=== PATIENT | female | born 1955 | race Caucasian/White ===

== ENCOUNTER 2018-03-02 09:36 | Emergency (ER) | payer BC ==
--- OUTSIDE RECORDS SUMMARY | 2018-03-02 09:38 | XMS REPORT | Clinical Summary ---
:1955 Author Organization [facility] Address [address] [place] [address] Care Team Providers Name Role Phone Chris Aparicio MD Primary Care Provider Allergies No Known Allergies Current Medications Prescription Sig. Disp. Refills Start Date End Date Status traZODone (DESYREL) 150 MG Take 150 mg by Active tablet mouth nightly. venlafaxine XR Take 150 mg by Active (EFFEXOR-XR) 150 MG 24 hr mouth 2 (two) capsule times a day. mirtazapine (REMERON Take 30 mg by Active RONALD-TAB) 30 MG mouth nightly. disintegrating tablet clonAZEPAM (KlonoPIN) 1 MG Take 1 mg by mouth Active tablet 3 (three) times a day as needed for seizures. gabapentin (NEURONTIN) 600 Take 600 mg by Active MG tablet mouth 2 (two) times a day. eletriptan (RELPAX) 40 MG Take 40 mg by Active tablet mouth once as needed for migraine. May repeat in 2 hours if unresolved. Do not exceed 80 mg in 24 hours. Active Problems Not on file Social History Tobacco Use Types Packs/Day Years Used Date Current Every Day Smoker Cigarettes, Cigars 30 Smokeless Tobacco: Current User Alcohol Use Drinks/Week oz/Week Comments Yes less than 6 drinks per week Sex Assigned at Date Recorded Not on file Last Filed Vital Signs Not on file Plan of Treatment Health Maintenance Due Date Last Done Comments CERVICAL CANCER SCREENING 1978 BREAST CANCER SCREENING 09/04/2007 COLON CANCER SCREENING 09/04/2007 SHINGRIX VACCINE (#1) 09/04/2007 ZOSTER VACCINE 2017 INFLUENZA VACCINE 11/30/2017 Results Not on fileafter 03/01/2017 Insurance Payer Benefit Plan / Group Subscriber ID Type Phone Address BCBS BCBS CHOICE PPO/FEDERAL EMPL PPO xxxxxxxxxxxx PPO Home: [facility] [address] [phone] [place], [place] [id number]
[2018-03-02] MEDS ORDERED: NA CHLORIDE 0.9% 1,000 ML ONE (11:14)
[2018-03-02 11:15] LABS: Urine Bacteria LOADED /HPF (<20); Urine RBC <5 /HPF (NONE SEEN)
[2018-03-02 11:16] LABS: Urine Culture Reflex Order NOT NEEDED; Urine Mucus 3+ /HPF (NONE SEEN)
[2018-03-02 11:22] LABS: Urine Blood TRACE (NEG); Urine Glucose NEGATIVE (NEG); Urine Protein 2+ (NEG)
[2018-03-02 11:23] LABS: Absolute Lymphocytes (CBC) 2.7 K/uL (0.7-4.9); Absolute Monocytes 0.5 K/uL (0.1-1.3); Absolute Neutrophil 4.2 K/uL (1.8-8.0); Basophils % 0.5 % (0-1.3); Eosinophils % 0.7 % (0-4.4); Hematocrit 42.2 % (36.0-45.0); Lymphocytes % 35.4 % (15.3-44.8); MCH 34.3 pg (27.0-35.0); MCV 98.8 fL (80-100); MPV 8.5 fL (7.6-11.3); RBC Red Blood Cell Count 4.27 M/uL (3.86-4.86)
[2018-03-02] MEDS ORDERED: MORPHINE 4 MG/ML SYR ONE (11:23)
[2018-03-02] MEDS ORDERED: ONDANSETRON 4 MG/2 ML VIAL ONE (11:24)
[2018-03-02] MEDS ORDERED: CEFTRIAXONE/SWI 1gm 1 GM/10 ML SYR ONE (11:30)
[2018-03-02 11:43] LABS: Potassium 4.1 mmol/L (3.5-5.1)
--- NOTE | 2018-03-02 11:59 | RAD REPORT ---
EXAM DESCRIPTION: CT - Stone Protocol - 03/02/2018 11:30 am CLINICAL HISTORY: Flank pain. FLANK PAIN COMPARISON: MRI LUMBAR SPINE W O CON dated 01/26/2012; Spine Lumbar Wo Con dated 10/12/2016 TECHNIQUE: Axial images were obtained without oral or IV contrast. Lack of contrast limits solid org an and vascular assessment. The buudi-aa-ctef spans the entirety of the system partially obscuring uppermost abdomen and lung bases. Coronal reformatted images were obtained and reviewed. All CT scans are performed using dose optimization technique as appropriate and may include automated exposure control or mA/KV adjustment according to patient size. FINDINGS: The lower lung garcias are clear. Small hiatal hernia with 6 mm paraesophageal lymph node. Imaged portions of the liver and spleen show no suspicious findings on non-contrast imaging. The panc reas and adrenal glands are normal. No pathologic lymphadenopathy in the abdomen or pelvis. Punctate bilateral nephrolithiasis is seen without hydronephrosis. No bowel obstruction, free air, free fluid or abscess. Sigmoid diverticulosis is present without dive rticulitis. The appendix is not identified as a discrete structure, however, no secondary findings of appendicitis are identified. Mild compression deformity is seen affecting T12 vertebral body, likely chronic. IMPRESSION: Punctate bilateral nephrolithiasis without hydronephrosis. Sigmoid diverticulosis without diverticulitis. Small hiatal hernia with small paraesophageal lymph node.
--- NOTE | 2018-03-02 12:34 | EDPHYS ---
Physician Documentation [facility] Name: Sydni Chappell Age: 62 yrs Sex: Female : 1955 Arrival Date: 03/02/2018 Time: 09:41 Bed 24 Private MD: Chris Aparicio ED Physician Nicolas Ellsworth HPI: 03/02 12:30 This 62 yrs old Female presents to ER via Wheelchair with complaints of Back kb Pain, Urinary Problem. 12:30 The patient presents with flank pain, on the left, urinary symptoms, dysuria, kb frequency. Onset: The symptoms/episode began/occurred last night. Modifying factors: The symptoms are alleviated by nothing, the symptoms are aggravated by urinating. Associated signs and symptoms: Pertinent positives: dysuria, urinary frequency. Severity of symptoms: At their worst the symptoms were moderate, in the emergency department the symptoms are unchanged. The patient has experienced similar episodes in the past, several times. The patient has not recently seen a physician. Historical: - Allergies: 09:54 No Known Allergies; aa5 - PMHx: 09:54 Anxiety; Back pain; Depression; aa5 - PSHx: 09:54 STENTS SOMEWHERE IN URINARY TRACT; aa5 - Immunization history:: Adult Immunizations unknown. - Social history:: Smoking status: unknown. - Ebola Screening: : Patient negative for fever greater than or equal to 101.5 degrees Fahrenheit, and additional compatible Ebola Virus Disease symptoms Patient denies exposure to infectious person Patient denies travel to an Ebola-affected area in the 21 days before illness onset. ROS: 12:31 Constitutional: Negative for fever, chills, and weight loss, Cardiovascular: Negative kb for chest pain, palpitations, and edema, Respiratory: Negative for shortness of breath, cough, wheezing, and pleuritic chest pain, Abdomen/GI: Negative for abdominal pain, nausea, vomiting, diarrhea, and constipation, MS/Extremity: Negative for injury and deformity, Skin: Negative for injury, rash, and discoloration, Neuro: Negative for headache, weakness, numbness, tingling, and seizure. 12:31 : Positive for urinary symptoms, flank pain, urinary frequency, burning with urination. Exam: 12:32 Constitutional: This is a well developed, well nourished patient who is awake, alert, kb and in no acute distress. Head/Face: Normocephalic, atraumatic. Chest/axilla: Normal chest wall appearance and motion. Nontender with no deformity. No lesions are appreciated. Cardiovascular: Regular rate and rhythm with a normal S1 and S2. No gallops, murmurs, or rubs. Normal PMI, no JVD. No pulse deficits. Respiratory: Lungs have equal breath sounds bilaterally, clear to auscultation and percussion. No rales, rhonchi or wheezes noted. No increased work of breathing, no retractions or nasal flaring. Abdomen/GI: Soft, non-tender, with normal bowel sounds. No distension or tympany. No guarding or rebound. No evidence of tenderness throughout. Skin: Warm, dry with normal turgor. Normal color with no rashes, no lesions, and no evidence of cellulitis. MS/ Extremity: Pulses equal, no cyanosis. Neurovascular intact. Full, normal range of motion. Neuro: Awake and alert, GCS 15, oriented to person, place, time, and situation. Cranial nerves II-XII grossly intact. Motor strength 5/5 in all extremities. Sensory grossly intact. Cerebellar exam normal. Normal gait. 12:32 Back: CVA tenderness, that is mild, that is moderate, is noted on the left. Vital Signs: 09:56 BP 111 / 62; Pulse 64; Resp 18 S; Temp 98.0(O); Pulse Ox 99% on R/A; Weight 72.57 kg aa5 (R); Height 5 ft. 8 in. (172.72 cm) (R); Pain 8/10; 12:20 BP 129 / 76; Pulse 51; Resp 16; Pulse Ox 100% ; Pain 6/10; iw 13:30 BP 104 / 73; Pulse 52; Pulse Ox 100% on R/A; rv 09:56 Body Mass Index 24.33 (72.57 kg, 172.72 cm) aa5 MDM: 10:46 Patient medically screened. kb 12:31 Data reviewed: vital signs, nurses notes. Data interpreted: Pulse oximetry: on room air kb is 100 %. Interpretation: normal. Counseling: I had a detailed discussion with the patient and/or guardian regarding: the historical points, exam findings, and any diagnostic results supporting the discharge/admit diagnosis, lab results, radiology results, the need for outpatient follow up, a family practitioner, to return to the emergency department if symptoms worsen or persist or if there are any questions or concerns that arise at home. 03/02 11:01 Order name: Urine Microscopic Only; Complete Time: 11:18 iw 03/02 11:01 Order name: Urine Culture iw 03/02 11:01 Order name: CBC with Diff; Complete Time: 11:31 kb 03/02 11: Order name: Basic Metabolic Panel; Complete Time: 11:49 kb 03/02 11:15 Order name: Urine Dipstick--Ancillary (enter results); Complete Time: 11:24 eb 03/02 11:01 Order name: Urine Dipstick-Ancillary (obtain specimen); Complete Time: 11:18 kb 03/02 11: Order name: CT Stone Protocol; Complete Time: 11:59 kb Administered Medications: 11:30 Drug: morphine 4 mg Route: IVP; Site: right antecubital; iw 13:29 Follow up: Response: No adverse reaction rv 11:30 Drug: NS 0.9% 1000 ml Route: IV; Rate: 1000 ml; Site: right antecubital; iw 13:29 Follow up: IV Status: Completed infusion rv 11:35 Drug: Zofran 4 mg Route: IVP; Site: right antecubital; iw 13:29 Follow up: Response: No adverse reaction rv 11:47 Drug: Rocephin 1 grams {Note: administered over 5 min.} Route: IV; Rate: calculated iw rate; Site: right antecubital; 11:55 Follow up: IV Status: Completed infusion iw 13:29 Follow up: Response: No adverse reaction; Blood sugar is elevated rv Disposition: 18:46 Co-signature as Attending Physician, Nicolas Ellsworth MD. rn Disposition: 03/02/18 12:33 Discharged to Home. Impression: Urinary tract infection, site not specified. - Condition is Stable. - Discharge Instructions: Urinary Tract Infection, Adult, [id number]-[id number]. - Prescriptions for Augmentin 875- 125 mg Oral Tablet - take 1 tablet by ORAL route every 12 hours for 7 days; 14 tablet. Pyridium 200 mg Oral Tablet - take 1 tablet by ORAL route every 8 hours for 3 days; 9 tablet. Diclofenac Sodium 75 mg Oral Tablet, Delayed Release (E.C.) - take 1 tablet by ORAL route 2 times per day As needed; 30 tablet. - Medication Reconciliation Form, Thank You Letter, Antibiotic Education, Prescription Opioid Use form. - Follow up: Emergency Department; When: As needed; Reason: Worsening of condition. Follow up: Private Physician; When: 2 - 3 days; Reason: Recheck today's complaints, Continuance of care, Re-evaluation by your physician. Signatures: Dispatcher [employer] [facility] Mikayla Zurita, FLAT LOCKER-C FLAT LOCKER-Ckb Savannah Everett, RN RN Nicolas Luu MD MD rn Calderon, Audri, RN RN aa5 Garth Garcia RN RN rv Corrections: (The following items were deleted from the chart) 11:02 11:01 UA MICROSCOPIC+U.LAB.BRZ ordered. [facility] 13:32 12:33 03/02/2018 12:33 Discharged to Home. Impression: Urinary tract infection, site rv not specified. Condition is Stable. Forms are Medication Reconciliation Form, Thank You Letter, Antibiotic Education, Prescription Opioid Use. Follow up: Emergency Department; When: As needed; Reason: Worsening of condition. Follow up: Private Physician; When: 2 - 3 days; Reason: Recheck today's complaints, Continuance of care, Re-evaluation by your physician. kb
--- NOTE | 2018-03-02 12:34 | ER ---
Nurse's Notes [facility] Name: Sydni Verma Chappell Age: 62 yrs Sex: Female : 1955 Arrival Date: 03/02/2018 Time: 09:41 Bed 24 Private MD: Chris Aparicio Diagnosis: Urinary tract infection, site not specified Presentation: 03/02 09:54 Presenting complaint: Patient states: "I hurt everywhere and I've been under a lot of aa5 stress". Lower back pain x 1 week and and vomiting and diarrhea. Transition of care: patient was not received from another setting of care. Onset of symptoms was January 2018. Risk Assessment: Do you want to hurt yourself or someone else? Patient reports no desire to harm self or others. Initial Sepsis Screen: Does the patient meet any 2 criteria? No. Patient's initial sepsis screen is negative. Does the patient have a suspected source of infection? No. Patient's initial sepsis screen is negative. Care prior to arrival: None. 09:54 Method Of Arrival: Wheelchair aa5 09:54 Acuity: BRODY 3 aa5 Historical: - Allergies: 09:54 No Known Allergies; aa5 - PMHx: 09:54 Anxiety; Back pain; Depression; aa5 - PSHx: 09:54 STENTS SOMEWHERE IN URINARY TRACT; aa5 - Immunization history:: Adult Immunizations unknown. - Social history:: Smoking status: unknown. - Ebola Screening: : Patient negative for fever greater than or equal to 101.5 degrees Fahrenheit, and additional compatible Ebola Virus Disease symptoms Patient denies exposure to infectious person Patient denies travel to an Ebola-affected area in the 21 days before illness onset. Screenin:30 Abuse screen: Denies threats or abuse. Denies injuries from another. Nutritional rv screening: No deficits noted. Tuberculosis screening: No symptoms or risk factors identified. Fall Risk None identified. Assessment: 11:15 General: Appears uncomfortable, Behavior is calm, cooperative. Pain: Complains of pain iw in left low back and right low back. Neuro: Level of Consciousness is awake, alert, obeys commands, Oriented to person, place, time, situation, Moves all extremities. Full function. Cardiovascular: Patient's skin is warm and dry. Respiratory: Respiratory effort is even, unlabored, Respiratory pattern is regular, symmetrical. : Reports burning with urination, pain in lower back. Derm: Skin is intact, is healthy with good turgor. 12:17 Reassessment: Patient appears in no apparent distress at this time. Patient and/or iw family updated on plan of care and expected duration. Pain level reassessed. Patient is alert, oriented x 3, equal unlabored respirations, skin warm/dry/pink. Vital Signs: 09:56 BP 111 / 62; Pulse 64; Resp 18 S; Temp 98.0(O); Pulse Ox 99% on R/A; Weight 72.57 kg aa5 (R); Height 5 ft. 8 in. (172.72 cm) (R); Pain 8/10; 12:20 BP 129 / 76; Pulse 51; Resp 16; Pulse Ox 100% ; Pain 6/10; iw 13:30 BP 104 / 73; Pulse 52; Pulse Ox 100% on R/A; rv 09:56 Body Mass Index 24.33 (72.57 kg, 172.72 cm) aa5 ED Course: 09:41 Patient arrived in ED. mr 09:41 Chris Aparicio MD is Private Physician. mr 09:56 Triage completed. aa5 09:56 Arm band placed on. aa5 10:45 Mik[facility] Zurita [facility]C [facility] kb 10:45 Nicolas Ellsworth MD is Attending Physician. kb 11:00 Savannah Everett, MICHEL is Primary Nurse. iw 11:16 Initial lab(s) drawn, by il, sent to lab. Urine collected: clean catch specimen, ashkan 5 colored. Inserted saline lock: 20 gauge in right antecubital area, using aseptic technique. Blood collected. 11:17 Patient has correct armband on for positive identification. Bed in low position. [facility] light in reach. Side rails up X 1. Warm blanket given. Pulse ox on. NIBP on. 11:18 Urine Dipstick--Ancillary (enter results) [facility] 11:18 Basic Metabolic Panel Sent. 5 11:18 CBC with Diff [facility] 11:18 Urine Culture Sent. 5 11:23 CT completed. Patient tolerated procedure well. Patient moved to CT via wheelchair. sj Patient moved back from CT. 11:31 CT Stone Protocol In Process Unspecified. EDMS 13:31 No provider procedures requiring assistance completed. IV discontinued, bleeding rv controlled, No redness/swelling at site. Pressure dressing applied. Administered Medications: 11:30 Drug: morphine 4 mg Route: IVP; Site: right antecubital; iw 13:29 Follow up: Response: No adverse reaction rv 11:30 Drug: NS 0.9% 1000 ml Route: IV; Rate: 1000 ml; Site: right antecubital; iw 13:29 Follow up: IV Status: Completed infusion rv 11:35 Drug: Zofran 4 mg Route: IVP; Site: right antecubital; iw 13:29 Follow up: Response: No adverse reaction rv 11:47 Drug: Rocephin 1 grams {Note: administered over 5 min.} Route: IV; Rate: calculated iw rate; Site: right antecubital; 11:55 Follow up: IV Status: Completed infusion iw 13:29 Follow up: Response: No adverse reaction; Blood sugar is elevated rv Outcome: 12:33 Discharge ordered by . kb 13:32 Discharged to home ambulatory. rv 13:32 Condition: improved 13:32 Discharge instructions given to patient, Instructed on discharge instructions, follow up and referral plans. medication usage, Demonstrated understanding of instructions, follow-up care, medications, Prescriptions given X 3. 13:32 Patient left the ED. rv Signatures: Dispatcher [employer] Mikayla Haskins, MRI SPECIAL PROCEDURES TECHNOLOGIST-C MRI SPECIAL PROCEDURES TECHNOLOGIST-Vilma Disla mr Beasley, Savannah Soto RN RN iw Calderon, Audri, RN RN aa5 Martinez, Maria Garth Elder RN RN rv
== END 2018-03-02 13:32 | disposition home or self-care (01) ==
LOC: ER 09:36
DX: N39.0 Urinary tract infection, site not specified (principal)
CPT/HCPCS: 36415; 74176; 76377; 80048; 81003; 81015; 85025; 87086; 87088; 96361; 96374; 96375; 99284; J0696; J2405; J7030

== ENCOUNTER 2021-04-12 08:02 | Emergency (ER) | payer BC ==
--- OUTSIDE RECORDS SUMMARY | 2021-04-12 08:06 | XMS REPORT | Continuity of Care Document ---
:1955 Author Organization [facility] t Address [address] [place] [address] Care Team Providers Name Role Phone KING KAUFFMAN Primary Care Physician Unavailable KING KAUFFMAN Attending Clinician Unavailable King Kauffman MD Attending Clinician Mehran HILL Attending Clinician Unavailable Andrew SHOEMAKER Attending Clinician ANDREW Attending Clinician Unavailable Doctor Unassigned, Name Attending Clinician Unavailable Room, Uro Procedure Attending Clinician Unavailable Tony PAC, Sole Attending Clinician King PAC, S Attending Clinician ANENE Attending Clinician Unavailable Silvia MURGUIA Attending Clinician Unavailable Silvia Murguia MD Attending Clinician ANDREW Admitting Clinician Unavailable Andrew SHOEMAKER Admitting Clinician Silvia MURGUIA Admitting Clinician Unavailable Payers Payer Name Policy Type Policy Number Effective Date Expiration Date S [facility] - [id number] 2017 2020 00:00:0 0 OUT OF STATE 00:00:00 Problems Condition Condition Condition Status Onset Resolution Last Treating Co mments Source Name Details Category Date Date Treatment Clinician Date Ureteral Ureteral Disease Active Unive rs stone stone 10-02 ity of 00:00: [address] Branch Urinary Urinary Disease Active Overview: Univ ers tract tract 10-01 Added ity of infection infection 00:00: automatic [place] without without 00 ally from Medic al hematuria, hematuria, request B [place] site site for unspecifie unspecifie surgery d d [id number] Bronchitis Bronchitis Disease Active 2017-1 U nivers 2-17 ity of 00:00: [place] 00 [facility] Depression Depression Disease Active 2014-05 U nivers 0-27 ity of 00:00: [place] 00 Medical Branch 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 U nivers e migraine e migraine it y of with aura with aura 00:[place] without without 00 Medical status status Branch migrainosu migrainosu s s Irritable Irritable Disease Active 2014-05 Uni vers bowel bowel 0 ity of syndrome syndrome 00:00: [place] with with 00 Medical diarrhea diarrhea Branch Allergies, Adverse Reactions, Alerts Allergy Allergy Status Severity Reaction(s) Onset Inactive Treating Comm ents Source Name Type Date Date Clinician CLINDAMY DRUG Active Swelling 2019-0 Univer s RUBY INGREDI 09-30 ity of 00:00: [place] 00 [facility] Clindamy Propensi Active Swelling 2019- Univ ers ruby ty to 09-30 ity of adverse 00:00: [place] reaction 00 Medical s Branch NO KNOWN Drug Active Univers ALLERGIE Class ity of S [facility] Social History Social Habit Start Date Stop Date Quantity Comments Source History of Cigarette Smoker Universi ty of tobacco use [facility] Sex Assigned At Universit y of [facility] Exposure to Not sure [facility] SARS-CoV-2 [facility] [place] (event) [place] Tobacco use and 2019-11-22 2019-11-22 Never used Universit y of exposure 00:00:00 00:00:00 [facility] Cigarettes smoked 2019-11-22 2019-11-22 Univers ity of current (pack per 00:00:00 00:00:00 [facility] ) - Reported Branch Cigarette 2019-11-22 2019-11-22 University of pack-years 00:00:00 00:00:00 [facility] Alcohol intake 2019-11-22 2019-11-22 Current drinker of Un iversity of 00:00:00 00:00:00 alcohol (finding) [facility] Tobacco Comment 2017-01-11 2017-01-11 0.5 pack weekly Univ ersity of 00:00:00 00:00:00 [facility] Alcohol Comment 2015-02-25 2015-02-25 occationally Univers ity of 00:00:00 00:00:00 [facility] Smoking Status Start Date Stop Date Source Current every day smoker 2019-11-22 00:00:00 [facility] Medical [place] Medications Ordered Filled Start Stop Current Ordering Indication Dosage Frequency Signature Comments Components Source Medication Medication Date Date Medication? Clinician (SIG) Name Name willianiptfelipe 2019-05 2020- No [id number] 40mg Take 1 Univers 40 mg 1-03-22 tablet by ity of tablet 00:00: 05:59 mouth [place] 00 :00 now for 1 Medical dose. May Branch repeat in 2 hours if necessary tamsulosin 2019-0 Yes [id number] .4mg Take 1 U nivers 0.4 mg 24 6-04 capsule by ity of hr capsule 00:00: mouth [place] 00 daily. Medical Branch tamsulosin 2019-0 Yes [id number] .4mg Take 1 U nivers 0.4 mg 24 6-04 capsule by ity of hr capsule 00:00: mouth [place] 00 daily. Medical Branch tamsulosin 2019-0 Yes [id number] .4mg Take 1 U nivers 0.4 mg 24 6-04 capsule by ity of hr capsule 00:00: mouth [place] 00 daily. Medical Branch tamsulosin 2019-0 Yes [id number] .4mg Take 1 U nivers 0.4 mg 24 6-04 capsule by ity of hr capsule 00:00: mouth [place] 00 daily. Medical Branch tamsulosin 2019-0 Yes [id number] .4mg Take 1 U nivers 0.4 mg 24 6-04 capsule by ity of hr capsule 00:00: mouth [place] 00 daily. Medical Branch tamsulosin 2019-0 Yes [id number] .4mg Take 1 U nivers 0.4 mg 24 6-04 capsule by ity of hr capsule 00:00: mouth [place] 00 daily. Medical Branch tamsulosin 2019-0 Yes [id number] .4mg Take 1 U nivers 0.4 mg 24 6-04 capsule by ity of hr capsule 00:00: mouth [place] 00 daily. Medical Branch tamsulosin 2020-0 Yes [id number] .4mg Take 1 U nivers 0.4 mg 24 6-04 capsule by ity of hr capsule 00:00: mouth [place] 00 daily. Medical Branch tamsulosin 2019-0 Yes [id number] .4mg Take 1 U nivers 0.4 mg 24 6-04 capsule by ity of hr capsule 00:00: mouth [place] 00 daily. Medical Branch venlafaxine 2020-0 Yes 150mg Take 150 U nivers XR (EFFEXOR 6-03 mg by ity of XR) 150 mg 20:29: mouth 3 [place] 24 [place] 39 (three) Medical capsule times Branch daily. venlafaxine 2020-0 Yes 150mg Take 150 U nivers XR (EFFEXOR 6-03 mg by ity of XR) 150 mg 20:29: mouth 3 [place] 24 [place] 39 (three) Medical capsule times Branch daily. venlafaxine 2020-0 Yes 150mg Take 150 U nivers XR (EFFEXOR 6-03 mg by ity of XR) 150 mg 20:29: mouth 3 [place] 24 [place] 39 (three) Medical capsule times Branch daily. venlafaxine 2020-0 Yes 150mg Take 150 U nivers XR (EFFEXOR 6-03 mg by ity of XR) 150 mg 20:29: mouth 3 [place] 24 [place] 39 (three) Medical capsule times Branch daily. venlafaxine 2020-0 Yes 150mg Take 150 U nivers XR (EFFEXOR 6-03 mg by ity of XR) 150 mg 20:29: mouth 3 [place] 24 [place] 39 (three) Medical capsule times Branch daily. venlafaxine 2020-0 Yes 150mg Take 150 U nivers XR (EFFEXOR 6-03 mg by ity of XR) 150 mg 20:29: mouth 3 [place] 24 [place] 39 (three) Medical capsule times Branch daily. venlafaxine 2020-0 Yes 150mg Take 150 U nivers XR (EFFEXOR 6-03 mg by ity of XR) 150 mg 20:29: mouth 3 [place] 24 [place] 39 (three) Medical capsule times Branch daily. venlafaxine 2020-0 Yes 150mg Take 150 U nivers XR (EFFEXOR 6-03 mg by ity of XR) 150 mg 20:29: mouth 3 [place] 24 [place] 39 (three) Medical capsule times Branch daily. venlafaxine 2020-0 Yes 150mg Take 150 U nivers XR (EFFEXOR 6-03 mg by ity of XR) 150 mg 20:29: mouth 3 [place] 24 [place] 39 (three) Medical capsule times Branch daily. lactated 2020-0 Yes 1000mL at 75 Univer s ringers IV 6-03 mL/hr, ity of infusion 17:45: 1,000 mL, [place] 1,000 mL 00 IV Medical Infusion, Branch CONTINUOUS , Starting Tue10/03/19 at 1245, Until Discontinu ed, Routine, PACU FENTanyl PF 2019-0 2020- No 25ug 25 mcg, Un rickey (SUBLIMAZE 10-02 Slow IV ity o f (PF)) 17:44: 18:15 Push, [place] injection 50 :00 Q5MIN PRN, Medi [place] 25 mcg 4 doses, Branch Starting Tue10/03/19 at 1244, Until Discontinu ed, Routine, Pain (scale 4-6), PACU acetaminoph 2019-0 2020- No 1{tbl} Take 1 U nivers en-codeine 10-02 tablet by ity of (TYLENOL-CO 17:31: 00:00 mouth [place] DEINE #3) 33 :00 every 4 Medical 300-30 mg (four) Branch tablet hours as needed. tamsulosin 2019-0 Yes .4mg 0.4 mg, Univ ers (FLOMAX) 10-02 Oral, ity of capsule 0.4 14:00: DAILY, [place] mg 00 First dose Medical on Tue Branch 10/03/19 at 0900, Until Discontinu ed, Routine gabapentin 2020-0 Yes 300mg 300 mg, Uni vers (NEURONTIN) 10-02 Oral, TID, it y of capsule 300 13:00: First dose [place] mg 00 on Tue Medical 10/03/19 at Branch 0800, Until Discontinu ed, Routine acetaminoph 2020-0 Yes 650mg 650 mg, Un rickey en 10-02 Oral, Q6H, ity of (TYLENOL) 11:00: First dose [place] tablet 650 00 on Tue Medical mg 10/03/19 at Branch 0600, Until Discontinu ed, Routine NaCl 0.9% 2020-0 Yes IV Univers (NS) IV 10-02 Infusion, ity of infusion 06:15: at 100 [place] 00 mL/hr, Medical CONTINUOUS Branch , Starting Tue10/03/19 at 0115, Until Discontinu ed, Routine ketorolac 2020-0 Yes 30mg 30 mg, Univer s (TORADOL) 10-02 Slow IV ity of injection 06:12: Push, [place] 30 mg 24 Q8HPRN, 3 Medical doses, Branch Starting Tue10/03/19 at 0112, Until Discontinu ed, Routine, Pain (scale 7-10)
F aculty member approving Restricted medication : DIANNA MORALES cefTRIAXone 2019-2019- No 1000mg 1,000 mg, Univers (ROCEPHIN) 10-02 IV ity of 1,000 mg in 04:30: 03:58 Piggyback, [place] NaCl 0.9% 00 :00 ONCE, 1 Medical (NS) 50 mL dose, Tue Bran ch MINI-BAG 10/02/19 at 2330, 50 mL
Reas on for Anti-Infec tive: Documented Infection< br>Documen alysha Infection Site: Urine
D uration of Therapy: Other (see Comments) ketorolac 2019- No 30mg 30 mg, Unive rs (TORADOL) 10-02 Slow IV ity of injection 04:30: 03:28 Push, [place] 30 mg 00 :00 ONCE, 1 Medical dose, e Branch 10/02/19 at 2330, IAM
Fa culty member approving Restricted medication : GIANNA KING morpHINE 2019- No 4mg 4 mg, Slow Un rickey injection 4 10-02 IV Push, ity of mg 04:15: 03:06 ONCE, 1 [place] 00 :00 dose, Tue Medical 10/02/19 at Branch 2315, STAT NaCl 0.9% 2020- No 1000mL at 999 Uni vers (NS) bolus 10-02 mL/hr, ity of infusion 01:30: 01:33 1,000 mL, Jose Angel as 1,000 mL 00 :00 IV Medical Infusion, Branch ONCE, 1 dose, 10/02/19 at 2030, STAT iohexol 2019-0 2020- No 120mL 120 mL, Unive rs (OMNIPAQUE 10-02 Intravenou it y of 350 01:25: 01:25 s, ONCE, 1 [place] BULK-150 00 :00 dose, Tue Medica l mL) 10/02/19 at Branch injection 2045, 120 mL Routine gabapentin 2019- Yes [id number] 300mg Take 1 Univers 300 mg 10-02 capsule by ity of capsule 00:00: mouth 3 [place] 00 (three) Medical times Branch daily. ketorolac 2020-0 Yes [id number] 10mg Take 1 Un rickey 10 mg 6-03 tablet by ity of tablet 00:00: mouth every 8 Medical (eight) Branch hours as needed for Pain (scale 7-10). gabapentin 2020-0 Yes [id number] 300mg Take 1 Univers 300 mg 6-03 capsule by ity of capsule 00:00: mouth (three) Medical times Branch daily. ketorolac 2020-0 Yes [id number] 10mg Take 1 Un rickey 10 mg 6-03 tablet by ity of tablet 00:00: mouth 00 every 8 Medical (eight) Branch hours as needed for Pain (scale 7-10). gabapentin 2020-0 Yes [id number] 300mg Take 1 Univers 300 mg 6-03 capsule by ity of capsule 00:00: mouth (three) Medical times Branch daily. ketorolac 2020-0 Yes [id number] 10mg Take 1 Un rickey 10 mg 6-03 tablet by ity of tablet 00:00: mouth every 8 Medical (eight) Branch hours as needed for Pain (scale 7-10). gabapentin 2020-0 Yes [id number] 300mg Take 1 Univers 300 mg 6-03 capsule by ity of capsule 00:00: mouth (three) Medical times Branch daily. ketorolac 2020-0 Yes [id number] 10mg Take 1 Un rickey 10 mg 6-03 tablet by ity of tablet 00:00: mouth every 8 Medical (eight) Branch hours as needed for Pain (scale 7-10). gabapentin 2020-0 Yes [id number] 300mg Take 1 Univers 300 mg 6-03 capsule by ity of capsule 00:00: mouth (three) Medical times Branch daily. ketorolac 2020-0 Yes [id number] 10mg Take 1 Un rickey 10 mg 6-03 tablet by ity of tablet 00:00: mouth every 8 Medical (eight) Branch hours as needed for Pain (scale 7-10). gabapentin 2020-0 Yes [id number] 300mg Take 1 Univers 300 mg 6-03 capsule by ity of capsule 00:00: mouth (three) Medical times Branch daily. ketorolac 2020-0 Yes [id number] 10mg Take 1 Un rickey 10 mg 6-03 tablet by ity of tablet 00:00: mouth [place] 00 every 8 Medical (eight) Branch hours as needed for Pain (scale 7-10). gabapentin 2020-0 Yes [id number] 300mg Take 1 Univers 300 mg 6-03 capsule by ity of capsule 00:00: mouth 3 [place] 00 (three) Medical times Branch daily. ketorolac 2020-0 Yes [id number] 10mg Take 1 Un rickey 10 mg 6-03 tablet by ity of tablet 00:00: mouth [place] 00 every 8 Medical (eight) Branch hours as needed for Pain (scale 7-10). gabapentin 2020-0 Yes [id number] 300mg Take 1 Univers 300 mg 6-03 capsule by ity of capsule 00:00: mouth 3 [place] 00 (three) Medical times Branch daily. ketorolac 2020-0 Yes [id number] 10mg Take 1 Un rickey 10 mg 6-03 tablet by ity of tablet 00:00: mouth [place] 00 every 8 Medical (eight) Branch hours as needed for Pain (scale 7-10). gabapentin 2020-0 Yes [id number] 300mg Take 1 Univers 300 mg 6-03 capsule by ity of capsule 00:00: mouth 3 [place] 00 (three) Medical times Branch daily. ketorolac 2020-0 Yes [id number] 10mg Take 1 Un rickey 10 mg 6-03 tablet by ity of tablet 00:00: mouth [place] 00 every 8 Medical (eight) Branch hours as needed for Pain (scale 7-10). acetaminoph 2020-0 2021- No [id number] 650mg Take 2 Univers en 325 mg 6-03 06-04 tablets by ity of tablet 00:00: 04:59 mouth [place] 00 :00 every 6 Medical (six) Branch hours. acetaminoph 2020-0 2021- No [id number] 650mg Take 2 Univers en 325 mg 6-03 06-04 tablets by ity of tablet 00:00: 04:59 mouth [place] 00 :00 every 6 Medical (six) Branch hours. acetaminoph 2020-0 2021- No [id number] 650mg Take 2 Univers en 325 mg 6-03 06-04 tablets by ity of tablet 00:00: 04:59 mouth [place] 00 :00 every 6 Medical (six) Branch hours. acetaminoph 2020-0 2021- No [id number] 650mg Take 2 Univers en 325 mg 6-03 06-04 tablets by ity of tablet 00:00: 04:59 mouth [place] 00 :00 every 6 Medical (six) Branch hours. acetaminoph 2020- No [id number] 650mg Take 2 Univers en 325 mg 6-03 06-04 tablets by ity of tablet 00:00: 04:59 mouth [place] 00 :00 every 6 Medical (six) Branch hours. acetaminoph 2020- No [id number] 650mg Take 2 Univers en 325 mg 6-03 06-04 tablets by ity of tablet 00:00: 04:59 mouth [place] 00 :00 every 6 Medical (six) Branch hours. acetaminoph 2020- No [id number] 650mg Take 2 Univers en 325 mg 6-03 06-04 tablets by ity of tablet 00:00: 04:59 mouth [place] 00 :00 every 6 Medical (six) Branch hours. acetaminoph 2020- No [id number] 650mg Take 2 Univers en 325 mg 6-03 06-04 tablets by ity of tablet 00:00: 04:59 mouth [place] 00 :00 every 6 Medical (six) Branch hours. acetaminoph 2020- No [id number] 650mg Take 2 Univers en 325 mg 6-03 06-04 tablets by ity of tablet 00:00: 04:59 mouth [place] 00 :00 every 6 Medical (six) Branch hours. ondansetron 2019- No 4mg 4 mg, Slow Univers (ZOFRAN 10-01 IV Push, ity of (PF)) 23:00: 22:05 ONCE, 1 [place] injection 4 00 :00 dose, Tue Med ical mg 20 at Branch 1800, IAM proMETHazin 2020-0 Yes [id number] 25mg Insert 1 Univers e - Suppositor ity of (PHENERGAN) 00:00: y into [place] 25 mg 00 rectum Medical suppository every 6 Branc h (six) hours as needed for Nausea and Vomiting (N/V) or N/V unresponsi ve to Ondansetro n. proMETHazin 2020-0 Yes [id number] 25mg Insert 1 Univers e -02 Suppositor ity of (PHENERGAN) 00:00: y into [place] 25 mg 00 rectum Medical suppository every 6 Branc h (six) hours as needed for Nausea and Vomiting (N/V) or N/V unresponsi ve to Ondansetro n. proMETHazin 2020-0 Yes [id number] 25mg Insert 1 Univers e 6-02 Suppositor ity of (PHENERGAN) 00:00: y into [place] 25 mg 00 rectum Medical suppository every 6 Branc h (six) hours as needed for Nausea and Vomiting (N/V) or N/V unresponsi ve to Ondansetro n. proMETHazin 2020-0 Yes [id number] 25mg Insert 1 Univers e 6-02 Suppositor ity of (PHENERGAN) 00:00: y into [place] 25 mg 00 rectum Medical suppository every 6 Branc h (six) hours as needed for Nausea and Vomiting (N/V) or N/V unresponsi ve to Ondansetro n. proMETHazin 2020-0 Yes [id number] 25mg Insert 1 Univers e 6-02 Suppositor ity of (PHENERGAN) 00:00: y into [place] 25 mg 00 rectum Medical suppository every 6 Branc h (six) hours as needed for Nausea and Vomiting (N/V) or N/V unresponsi ve to Ondansetro n. proMETHazin 2020-0 Yes [id number] 25mg Insert 1 Univers e 6-02 Suppositor ity of (PHENERGAN) 00:00: y into [place] 25 mg 00 rectum Medical suppository every 6 Branc h (six) hours as needed for Nausea and Vomiting (N/V) or N/V unresponsi ve to Ondansetro n. proMETHazin 2020-0 Yes [id number] 25mg Insert 1 Univers e 6-02 Suppositor ity of (PHENERGAN) 00:00: y into [place] 25 mg 00 rectum Medical suppository every 6 Branc h (six) hours as needed for Nausea and Vomiting (N/V) or N/V unresponsi ve to Ondansetro n. proMETHazin 2020-0 Yes [id number] 25mg Insert 1 Univers e 6-02 Suppositor ity of (PHENERGAN) 00:00: y into [place] 25 mg 00 rectum Medical suppository every 6 Branc h (six) hours as needed for Nausea and Vomiting (N/V) or N/V unresponsi ve to Ondansetro n. proMETHazin 2020-0 Yes [id number] 25mg Insert 1 Univers e 6-02 Suppositor ity of (PHENERGAN) 00:00: y into [place] 25 mg 00 rectum Medical suppository every 6 Branc h (six) hours as needed for Nausea and Vomiting (N/V) or N/V unresponsi ve to Ondansetro n. ciprofloxac 2019-0 2020- No [id number] 500mg Take 1 Univers in HCl 500 10-01 06-03 tablet by ity of mg tablet 00:00: 00:00 mouth [place] 00 :00 every 12 Medical (twelve) Branch hours for 5 days. ondansetron 2020-0 Yes [id number] 8mg Take 1 Univers (ZOFRAN 6-01 tablet by ity of ODT) 8 mg 00:00: mouth [place] disintegrat 00 every 8 Medic al ing tablet (eight) Branch hours as needed for Nausea and Vomiting (N/V). ondansetron 2020-0 Yes [id number] 8mg Take 1 Univers (ZOFRAN 6-01 tablet by ity of ODT) 8 mg 00:00: mouth [place] disintegrat 00 every 8 Medic al ing tablet (eight) Branch hours as needed for Nausea and Vomiting (N/V). ondansetron 2020-0 Yes [id number] 8mg Take 1 Univers (ZOFRAN 6-01 tablet by ity of ODT) 8 mg 00:00: mouth [place] disintegrat 00 every 8 Medic al ing tablet (eight) Branch hours as needed for Nausea and Vomiting (N/V). ondansetron 2020-0 Yes [id number] 8mg Take 1 Univers (ZOFRAN 6-01 tablet by ity of ODT) 8 mg 00:00: mouth [place] disintegrat 00 every 8 Medic al ing tablet (eight) Branch hours as needed for Nausea and Vomiting (N/V). ondansetron 2020-0 Yes [id number] 8mg Take 1 Univers (ZOFRAN 6-01 tablet by ity of ODT) 8 mg 00:00: mouth [place] disintegrat 00 every 8 Medic al ing tablet (eight) Branch hours as needed for Nausea and Vomiting (N/V). ondansetron 2020-0 Yes [id number] 8mg Take 1 Univers (ZOFRAN 6-01 tablet by ity of ODT) 8 mg 00:00: mouth [place] disintegrat 00 every 8 Medic al ing tablet (eight) Branch hours as needed for Nausea and Vomiting (N/V). ondansetron 2020-0 Yes [id number] 8mg Take 1 Univers (ZOFRAN 6-01 tablet by ity of ODT) 8 mg 00:00: mouth [place] disintegrat 00 every 8 Medic al ing tablet (eight) Branch hours as needed for Nausea and Vomiting (N/V). ondansetron 2020-0 Yes [id number] 8mg Take 1 Univers (ZOFRAN 6-01 tablet by ity of ODT) 8 mg 00:00: mouth [place] disintegrat 00 every 8 Medic al ing tablet (eight) Branch hours as needed for Nausea and Vomiting (N/V). ondansetron 2020-0 Yes [id number] 8mg Take 1 Univers (ZOFRAN 6-01 tablet by ity of ODT) 8 mg 00:00: mouth [place] disintegrat 00 every 8 Medic al ing tablet (eight) Branch hours as needed for Nausea and Vomiting (N/V). ketorolac 2019-0 2019- No 30mg 30 mg, Unive rs (TORADOL) 07-26 Slow IV ity of injection 07:15: 06:13 Push, [place] 30 mg 00 :00 ONCE, 1 Medical dose, Fri Branch 07/27/19 at 0215, Routine
membership manager approving Restricted medication : JAMIR MURGUIA HYDROcodone 2019-2019- No 1{tbl} 1 tablet, Univers -acetaminop 07-26 Oral, ONCE i ty of hen (NORCO) 07:15: 06:12 NOW, 1 [place] Angel as 10-325 mg 00 :00 dose, Fri Medic al tablet 1 07/27/19 at [facility] h tablet 0215, Routine iohexol 2019-0 2020- No 120mL 120 mL, Unive rs (OMNIPAQUE 07-26 Intravenou it y of 350 05:30: 05:11 s, ONCE, 1 [place] BULK-150 00 :00 dose, Fri Medica l mL) 07/27/19 at Branch injection 0030, 120 mL Routine FENTanyl PF 2020-0 2020- No 25ug 25 mcg, Un rickey (SUBLIMAZE 3-27 03-27 Slow IV ity o f (PF)) 04:15: 03:28 Push, [place] injection 00 :00 ONCE, 1 Medical 25 mcg dose, [place]ymber[place] Branch 07/26/19 at 2315, STAT venlafaxine 2020-0 Yes 150mg Take 150 U nivers XR (EFFEXOR 3-27 mg by ity of XR) 150 mg 02:54: mouth 3 [place] 24 hr 11 (three) Medical capsule times Branch daily. acetaminoph 2020-0 Yes 1{tbl} Take 1 Un rickey en-codeine 3-27 tablet by ity of (TYLENOL-CO 02:54: mouth [place] DEINE #3) 11 every 4 Medical 300-30 mg (four) Branch tablet hours as needed. amoxicillin 2020-0 2020- No 500mg Take 500 Univers 500 mg 3-24 03-24 mg by ity of tablet 16:22: 00:00 mouth 3 [place] 19 :00 (three) Medical times Branch daily. ciprofloxac 2020-0 Yes [id number] 250mg Take 1 Univers in HCl 3-24 tablet by ity of (CIPRO) 250 00:00: mouth [place] mg tablet 00 every 12 Medica l (twelve) Branch hours. ciprofloxac 2020-0 Yes [id number] 250mg Take 1 Univers in HCl 3-24 tablet by ity of (CIPRO) 250 00:00: mouth [place] mg tablet 00 every 12 Medica l (twelve) Branch hours. ciprofloxac 2020-0 2020- No [id number] 250mg Take 1 Univers in HCl 3-24 06-03 tablet by ity of (CIPRO) 250 00:00: 00:00 mouth [place] mg tablet 00 :00 every 12 Medica l (twelve) Branch hours. amoxicillin 2020-0 Yes 500mg Take 500 U nivers 500 mg 1-14 mg by ity of tablet 22:33: mouth 3 [place] 23 (three) Medical times Branch daily. acetaminoph 2020-0 Yes 1{tbl} Take 1 Un rickey en-codeine 1-14 tablet by ity of (TYLENOL-CO 22:33: mouth [place] DEINE #3) 23 every 4 Medical 300-30 mg (four) Branch tablet hours as needed. amoxicillin 2020-0 Yes 500mg Take 500 U nivers 500 mg 1-14 mg by ity of tablet 22:33: mouth 3 [place] 23 (three) Medical times Branch daily. acetaminoph 2020-0 Yes 1{tbl} Take 1 Un rickey en-codeine 1-14 tablet by ity of (TYLENOL-CO 22:33: mouth [place] DEINE #3) 23 every 4 Medical 300-30 mg (four) Branch tablet hours as needed. amoxicillin 2020-0 Yes 500mg Take 500 U nivers 500 mg 1-14 mg by ity of tablet 22:33: mouth 3 [place] 23 (three) Medical times Branch daily. acetaminoph 2020-0 Yes 1{tbl} Take 1 Un rickey en-codeine 1-14 tablet by ity of (TYLENOL-CO 22:33: mouth [place] DEINE #3) 23 every 4 Medical 300-30 mg (four) Branch tablet hours as needed. acetaminoph 2020-0 Yes 1{tbl} Take 1 Un rickey en-codeine 1-14 tablet by ity of (TYLENOL-CO 22:33: mouth [place] DEINE #3) 23 every 4 Medical 300-30 mg (four) Branch tablet hours as needed. MIRTAZAPINE 2020-0 2020- No Take by U nivers ORAL 1-14 -14 mouth. ity of 22:33: 00:00 [place] 15 :00 Medical Branch MIRTAZAPINE 2020-0 2020- No Take by U nivers ORAL 1-14 -14 mouth. ity of 22:33: 00:00 [place] 15 :00 Medical Branch clonazePAM 2020-0 2020- No [id number] .5mg Take 0.5 Univers (KLONOPIN) 1-14 01-14 mg by ity of 0.5 mg 22:32: 00:00 mouth as [place] tablet 53 :00 needed Medical (panic). Branch clonazePAM 2019-0 2020- No [id number] .5mg Take 0.5 Univers (KLONOPIN) 1-14 01-14 mg by ity of 0.5 mg 22:32: 00:00 mouth as [place] tablet 53 :00 needed Medical (panic). Branch naproxen 2018-05 2020- No [id number] 500mg Take 1 Univers (NAPROSYN) 0-28 -14 9102 tablet by ity of 500 mg 00:00: 00:00 mouth 2 [place] tablet 00 :00 (two) Medical times Branch daily with meals. naproxen 2018-05- No [id number] 500mg Take 1 Univers (NAPROSYN) 0-05-15 9102 tablet by ity of 500 mg 00:00: 00:00 mouth 2 [place] tablet 00 :00 (two) Medical times Branch daily with meals. methylPREDN 2018-05- No [id number] 84mg Take 21 Univers ISolone 0-05-15 9102 tablets by ity o f (MEDROL, 00:00: 00:00 mouth [place] LORENA,) 4 mg 00 :00 SEE-INSTRU Med ical tablets CTIONS. Branch follow package directions methylPREDN 2018-05- No [id number] 84mg Take 21 Univers ISolone 0-05-15 9102 tablets by ity o f (MEDROL, 00:00: 00:00 mouth [place] LORENA,) 4 mg 00 :00 SEE-INSTRU Med ical tablets CTIONS. Branch follow package directions venlafaxine 2018- Yes 150mg Take 150 U nivers XR (EFFEXOR 9-25 mg by ity of XR) 150 mg 19:49: mouth 3 [place] 24 hr 40 (three) Medical capsule times Branch daily. venlafaxine 2018-0 Yes 150mg Take 150 U nivers XR (EFFEXOR 9-25 mg by ity of XR) 150 mg 19:49: mouth 3 [place] 24 hr 40 (three) Medical capsule times Branch daily. venlafaxine 2018-0 Yes 150mg Take 150 U nivers XR (EFFEXOR 9-25 mg by ity of XR) 150 mg 19:49: mouth 3 [place] 24 [place] 40 (three) Medical capsule times Branch daily. venlafaxine 2018-0 Yes 150mg Take 150 U nivers XR (EFFEXOR 9-25 mg by ity of XR) 150 mg 19:49: mouth 3 [place] 24 [place] 40 (three) Medical capsule times Branch daily. HYDROcodone 2020- No [id number] 1{tbl} Take 1 Univers -acetaminop 01-24 tablet by it y of hen (NORCO) 00:00: 00:00 [place] 10-325 mg 00 :00 every 6 Medical tablet (six) Branch hours as needed (pain). etodolac 2019- No [id number] 400mg Take 1 Univers 400 mg 01-24 tablet by ity of tablet 00:00: 00:00 mouth 2 [place] 00 :00 (two) Medical times Branch daily. HYDROcodone 2019- No [id number] 1{tbl} Take 1 Univers -acetaminop 01-24 tablet by it y of hen (NORCO) 00:00: 00:00 [place] 10-325 mg 00 :00 every 6 Medical tablet (six) Branch hours as needed (pain). etodolac 2019- No [id number] 400mg Take 1 Univers 400 mg 01-24 tablet by ity of tablet 00:00: 00:00 mouth 2 [place] 00 :00 (two) Medical times Branch daily. RELPAX 40 2019- No TAKE 1 Unive rs mg tablet 10-25 TABLET BY ity of 00:00: 00:00 MOUTH ONCE [place] 00 :00 NOW FOR 1 Medical DOSE. MAY Branch REPEAT IN 2 HOURS IF NECESSARY RELPAX 40 2019- No TAKE 1 Unive rs mg tablet 10-25 TABLET BY ity of 00:00: 00:00 MOUTH ONCE [place] 00 :00 NOW FOR 1 Medical DOSE. MAY Branch REPEAT IN 2 HOURS IF NECESSARY Immunizations Ordered Filled Immunization Date Status Comments [facility] e Immunization Name Name Influenza Virus 2019-01-24 Completed Universit y of Vaccine [place] .5 mL 00:00:00 [place] [facility] IM 6+ MO Branch Influenza Virus 2019-01-24 Completed Universit y of Vaccine [place] .5 mL 00:00:00 [place] [facility] IM 6+ MO Branch Influenza Virus 2019-01-24 Completed Universit y of Vaccine [place] .5 mL 00:00:00 [place] Medical IM 6+ MO Branch Influenza Virus 2019-01-24 Completed Universit y of Vaccine [place] .5 mL 00:00:00 [place] Medical IM 6+ MO Branch Influenza Virus 2019-01-24 Completed Universit y of Vaccine [place] .5 mL 00:00:00 [place] [facility] IM 6+ MO Branch Influenza Virus 2019-01-24 Completed Universit y of Vaccine [place] .5 mL 00:00:00 [place] [facility] IM 6+ MO Branch Influenza Virus 2019-01-24 Completed Universit y of Vaccine [place] .5 mL 00:00:00 [place] Medical IM 6+ MO Branch Influenza Virus 2019-01-24 Completed Universit y of Vaccine [place] .5 mL 00:00:00 [place] Medical IM 6+ MO Branch Influenza Virus 2019-01-24 Completed Universit y of Vaccine [place] .5 mL 00:00:00 [place] [facility] IM 6+ MO Branch Influenza Virus 2019-01-24 Completed Universit y of Vaccine [place] .5 mL 00:00:00 [place] [facility] IM 6+ MO Branch Influenza Virus 2019-01-24 Completed Universit y of Vaccine [place] .5 mL 00:00:00 [place] [facility] IM 6+ MO Branch Influenza Virus 2019-01-24 Completed Universit y of Vaccine [place] .5 mL 00:00:00 [place] [facility] IM 6+ MO Branch Influenza Virus 2019-01-24 Completed Universit y of Vaccine [place] .5 mL 00:00:00 [place] [facility] IM 6+ MO Branch Influenza Virus 2019-01-24 Completed Universit y of Vaccine [place] .5 mL 00:00:00 [place] [facility] IM 6+ MO Branch Influenza Virus 2015-02-25 Completed Universit y of Vaccine Quad ID 00:00:00 [place] Med ical 18-64 YRS Branch Influenza Virus 2015-02-25 Completed Universit y of Vaccine Quad ID 00:00:00 [place] [facility] ical 18-64 YRS Branch Influenza Virus 2015-02-25 Completed Universit y of Vaccine Quad ID 00:00:00 [place] Med ical 18-64 YRS Branch Influenza Virus 2015-02-25 Completed Universit y of Vaccine Quad ID 00:00:00 [place] Med ical 18-64 YRS Branch Influenza Virus 2015-02-25 Completed Universit y of Vaccine Quad ID 00:00:00 [place] Med ical 18-64 YRS Branch Influenza Virus 2015-02-25 Completed Universit y of Vaccine Quad ID 00:00:00 [place] Med ical 18-64 YRS Branch Influenza Virus 2015-02-25 Completed Universit y of Vaccine Quad ID 00:00:00 [place] Med ical 18-64 YRS Branch Influenza Virus 2015-02-25 Completed Universit y of Vaccine Quad ID 00:00:00 [place] Med ical 18-64 YRS Branch Influenza Virus 2015-02-25 Completed Universit y of Vaccine Quad ID 00:00:00 [place] Med ical 18-64 YRS Branch Influenza Virus 2015-02-25 Completed Universit y of Vaccine Quad ID 00:00:00 [place] Med ical 18-64 YRS Branch Influenza Virus 2015-02-25 Completed Universit y of Vaccine Quad ID 00:00:00 [place] Med ical 18-64 YRS Branch Influenza Virus 2015-02-25 Completed Universit y of Vaccine Quad ID 00:00:00 [place] [facility] ical 18-64 YRS Branch Influenza Virus 2015-02-25 Completed Universit y of Vaccine Quad ID 00:00:00 [place] [facility] ical 18-64 YRS Branch Influenza Virus 2015-02-25 Completed Universit y of Vaccine Quad ID 00:00:00 [facility] ical 18-64 YRS Branch Vital Signs Vital Name Observation Time Observation Value Comments Source Systolic blood 2019-11-22 20:14:00 138 mm[Hg] Univer sity of pressure [facility] Diastolic blood 2019-11-22 20:14:00 89 mm[Hg] Unive rsity of pressure [facility] Heart rate 2019-11-22 20:14:00 79 /min Universi ty of [facility] Respiratory rate 2019-11-22 20:14:00 18 /min [facility] Body height 2019-11-22 20:14:00 175.3 cm Universi ty of [facility] Body weight 2019-11-22 20:14:00 75.161 kg Universi ty of [facility] BMI 2019-11-22 20:14:00 24.47 kg/m2 Universi ty of [facility] Systolic blood 2019-10-03 18:29:00 129 mm[Hg] Univer sity of pressure [facility] Diastolic blood 2019-10-03 18:29:00 91 mm[Hg] Unive rsity of [facility] Heart rate 2019-10-03 18:29:00 82 /min Universi ty of [facility] Respiratory rate 2019-10-03 18:29:00 16 /min [facility] Oxygen saturation in 2019-10-03 18:29:00 98 /min [facility] Arterial blood by [facility] Pulse oximetry Branch Body temperature 2019-10-03 17:42:00 36 Louise [facility] Body height 2019-10-02 21:38:00 175.3 cm Universi ty of [facility] Body weight 2019-10-02 21:38:00 68.493 kg Universi ty of [facility] BMI 2019-10-02 21:38:00 22.30 kg/m2 Universi ty of [place] [facility] [place] Systolic blood 2019-07-27 06:00:00 147 mm[Hg] Univer sity of pressure [place] [facility] Diastolic blood 2019-07-27 06:00:00 101 mm[Hg] Unive rsity of pressure [place] [facility] [place] Heart rate 2019-07-27 06:00:00 65 /min Universi ty of [facility] Respiratory rate 2019-07-27 06:00:00 24 /min Univ ersity of [facility] Oxygen saturation in 2019-07-27 06:00:00 98 /min [facility] Arterial blood by [facility] Pulse oximetry Branch Body temperature 2019-07-27 02:51:00 36 Louise [facility] ersity of [facility] Body height 2019-07-27 02:51:00 172.7 cm Universi ty of [place] [facility] [place] Body weight 2019-07-27 02:51:00 68.04 kg Universi ty of [place] [facility] [place] BMI 2019-07-27 02:51:00 22.81 kg/m2 Universi ty of [place] [facility] Systolic blood 2019-05-15 22:22:00 126 mm[Hg] Univer sity of pressure [facility] Diastolic blood 2019-05-15 22:22:00 78 mm[Hg] Unive rsity of pressure [facility] Heart rate 2019-05-15 22:22:00 63 /min Universi ty of [place] [facility] [place] Body temperature 2019-05-15 22:22:00 36.06 Louise Univ ersity of [place] [facility] [place] Body height 2019-05-15 22:22:00 172.7 cm Universi ty of [place] [facility] [place] Body weight 2019-05-15 22:22:00 76.658 kg Universi ty of [place] [facility] BMI 2019-05-15 22:22:00 25.70 kg/m2 Universi ty of [place] [facility] Procedures Procedure Date / Time Performing Clinician Source Performed US RETROPERITONEAL 2019-12-11 18:47:09 Dian[facility] Mor[facility] COMPLETE Medical Branch ASSIGNMENT OF BENEFITS 2019-12-11 18:05:01 Doctor Unassigned, [facility] [place] [facility] DISCLOSURE AND CONSENT, 2019-11-22 05:01:00 [facility], [facility] [place] [facility] PROCEDURES BASIC METABOLIC PANEL (NA, 2019-10-03 10:56:00 ForemanTray U [facility] K, CL, CO2, GLUCOSE, BUN, Medica l Branch CREATININE, CA) CT ABDOMEN PELVIS W 2019-10-03 01:30:38 Gianna King [facility] CONTRAST Medical Branch XR CHEST 1 VW 2019-10-02 22:29:05 [facility] LIPASE 2019-10-02 22:04:00 Rocky Jimenez [facility] MAGNESIUM 2019-10-02 22:04:00 [facility] TROPONIN I 2019-10-02 22:04:00 [facility] COMP. METABOLIC PANEL 2019-10-02 22:04:00 Rocky Jimenez S[facility] ([id number]) Medical Branch CBC WITH DIFFERENTIAL 2019-10-02 22:04:00 Rocky Jimenez [facility] URINALYSIS 2019-10-02 22:04:00 [facility] NOTICE OF PRIVACY 2019-10-02 21:08:54 Doctor Unassigned, [facility] [place] [facility] [place] TROPONIN I 2019-07-27 03:18:00 Jamir Murguia [facility] COMP. METABOLIC PANEL 2019-07-27 03:18:00 Jamir Murguia [facility] ([id number]) Medical [place] CBC WITH DIFFERENTIAL 2019-07-27 03:18:00 Jamir Murguia [facility] PROTHROMBIN TIME / INR 2019-07-27 03:18:00 Jamir Murguia [facility] EKG-12 LEAD 2019-07-27 03:05:07 Jamir Murguia [facility] NOTICE OF PRIVACY 2019-07-27 02:45:41 Doctor Unassigned, [facility] [place] [facility] [place] CONSENT/REFUSAL FOR 2019-07-27 02:45:26 Doctor Unasseliana, [facility] DIAGNOSIS AND TREATMENT [place] [facility] [place] Encounters Start End Encounter Admission Attending Care Care Encounter Source Date/Time Date/Time Type Type Clinicians Facility Department ID 2020-05-20 2020-05-20 Outpatient R DALY [facility] [id number] Univers 13:45:00 13:45:00 FAN [id number] ity [facility] 2020-05-20 2020-05-20 [facility] [id number] Univers 13:45:00 13:45:[facility] 2020-03-21 [facility] [id number] Univers 00:00:00 00:00:00 [facility] [id number] it y of [place] [id number] [facility] [id number] [place] [address] Office Building One 2020-02-25 2020-02-25 [facility] [id number] Univers 13:00:00 13:00:00 JEFFRY [id number] ity [facility] 2020-02-25 2020-02-25 Outpatient [facility] [id number] Univers 13:00:00 13:00:00 [facility] 2020-02-11 2020-02-11 Outpatient R [facility] [id number] Univers 14:15:00 14:15:00 [id number] ity [facility] 2020-02-11 2020-02-11 Outpatient R [facility] [id number] Univers 14:15:00 14:15:00 ity [facility] 2019-12-11 2019-12-11 [facility] [id number] Univers 13:06:41 23:59:00 Encounter Dianna [place] [id number] ity [place] [id number] [facility] [id number] [facility] 806 [place] 2019-12-11 2019-12-11 Outpatient [facility] [id number] Univers 13:30:00 13:30:00 DIANNA [id number] ity [facility] 2019-12-11 2019-12-11 Outpatient [facility] [id number] Univers 00:00:00 00:00:00 BILAL ity of [facility] 2019-12-11 2019-12-11 Orders Doctor BIANCA [id number] Univers 00:00:00 00:00:00 Only Unassigned, LIYAH [id number] ity of [place] [facility] [id number] Jose Angel as [phone] [facility] 009 Branch 2019-11-22 2019-11-22 Office Andrew [facility] [id number] Univers 13:55:45 16:12:18 Visit Room, Jose Angel Uro Procedure HEALTH 350.1. 13.10 ity of [place] [id number] [facility] [id number] [facility] Primary & 204 Branch Specialty Care 2019-11-22 2019-11-22 Outpatient [facility] [id number] Univers 14:30:00 14:30:00 BILAL [id number] ity of [facility] 2019-11-22 2019-11-22 Outpatient [facility] [id number] Univers 14:30:00 14:30:00 BILAL ity of [facility] 2019-11-22 2019-11-22 Orders Doctor BIANCA [id number] Univers 00:00:00 00:00:00 Only Unassigned, LIYAH [id number] ity of [place] [facility] [id number] Jose Angel as [id number] [place] [address] Branch 2019-10-30 2019-10-30 Outpatient [facility] [id number] Univers 10:30:00 10:30:00 BILAL ity of [facility] 2019-10-30 2019-10-30 Outpatient [facility] [id number] Univers 10:30:00 10:30:00 BILAL ity [facility] 2019-10-30 2019-10-30 Telephone [facility] [id number] Univers 00:00:00 00:00:00 Bilal HEALTH [id number] it y of [place] [id number] [facility] [id number] [facility] Primary & 204 Branch Specialty Care 2019-10-04 2019-10-04 [facility] [id number] Univers 00:00:00 00:00:00 [facility] [id number] it y of [place] [id number] [facility] [id number] Ca dical nal 044 Branch Office [address] One 2019-10-02 2019-10-03 Outpatient X [facility] SUU [id number] Univers 16:24:24 14:59:00 [facility] ity [facility] 2019-10-02 2019-10-03 Emergency Tony, Rocky Soleanibal U[place] 1.2.840. [id number] Univers 16:24:24 14:59:00 Gianna [place] [id number] ity of [facility] [id number] [place] [id number] [place] [id number] Branch 2019-10-01 2019-10-01 Outpatient R [facility] [id number] Univers 11:20:00 11:20:00 [id number] ity [facility] 2019-10-01 2019-10-01 Outpatient R [facility] [id number] Univers 11:20:00 11:20:00 TEJINDER ity [facility] 2019-07-26 2019-07-27 Emergency X [facility] ERT [id number] Univers 21:46:01 01:27:00 JAMIR ity [facility] 2019-07-26 2019-07-27 Emergency [facility] [id number] Univers 21:46:01 01:27:00 Jamir [place] [id number] ity [place] [id number] [facility] [id number] [facility] 084 Branch 2019-07-24 2019-07-24 Outpatient [facility] [id number] Univers 11:15:00 11:15:00 FAN [id number] ity [facility] 2019-07-24 2019-07-24 Outpatient [facility] [id number] Univers 11:15:00 11:15:00 General acute hospital 2019-07-24 2019-07-24 [facility]medici [facility] 1.2.840.114 [id number] Univers 08:15:25 08:30:25 ne Visit [place] [id number] i ty of [place] [id number] Jose Angel as Professio [id number] [address] Office [facility] 2019-07-23 2019-07-23 Telephone [facility] [id number] Univers 00:00:00 00:00:00 [facility] [id number] it y of [place] [id number] Jose Angel as Professio [id number] [address] 2019-06-26 2019-06-26 Outpatient [facility] [id number] Univers 14:15:00 14:15:00 [facility] [id number] [facility] 2019-06-26 2019-06-26 Outpatient R [facility] [id number] Univers 14:15:00 14:15:00 General acute hospital 2019-05-15 2019-05-15 Office [facility] [id number] Univers 16:19:35 16:43:39 [place] [id number] it y of [place] [id number] Jose Angel as Professio [id number] [address] One Results Test Description Test Test Results Result Source Time Comments Comments US RETROPERITONEAL 2019-12- HISTORY: History of University of COMPLETE 11 right-sided kidney [facility] [place] 18:55:51 stone and S/P stone Branc h removalevaluation. TECHNIQUE: Both kidneys are evaluated in multiple planes with the patientin different positions. FINDINGS: Comparison is made with CT scan dated 10/02/2019. Both kidneys appear to be of normal size and shape with mild fullness notedin the right kidney's collecting system. Right kidney is 9.5 x 5.8 x 5.6 cmin size and left kidney 10.6 x 5.2 x 4.7 cm in size. Cortex of both kidneysis between 13 and 15 mm. Small focus of bright echoes noted in the dorsalupper cortex of left kidney. Quick look at poorly distended urinary bladder showed no gross pathology. CONCLUSIONS:1. Mild fullness noted in the right kidneys collecting system withoutsignificant hydronephrosis.2. Possible small stone in the upper pole of the left kidney. This is aborderline finding. CT scan done in October 2019 did not show any left kidneystone.[facility], Radiant Results Inft User - 12/11/2019 1:56 PM CDTHISTORY: History of right-sided kidney stone and S/P stone removalevaluation.TECH NIQUE: Both kidneys are evaluated in multiple planes with the patientin different positions. FINDINGS: Comparison is made with CT scan dated 10/02/2019.Both kidneys appear to be of normal size and shape with mild fullness notedin the right kidney's collecting system. Right kidney is 9.5 x 5.8 x 5.6 cmin size and left kidney 10.6 x 5.2 x 4.7 cm in size. Cortex of both kidneysis between 13 and 15 mm. Small focus of bright echoes noted in the dorsalupper cortex of left kidney.Quick look at poorly distended urinary bladder showed no gross pathology.CONCLUSIONS: 1. Mild fullness noted in the right kidneys collecting system withoutsignificant hydronephrosis.2. Possible small stone in the upper pole of the left kidney. This is aborderline finding. CT scan done in October 2019 did not show any left kidneystone. Basic Metabolic Panel (NA, K, CL, CO2, Glucose, BUN, 2019-10 12:00:00 Creatinine, CA) Test Item Value Reference Range Interpretation Comme nts NA (test code = 6420320431) 143 mmol/L 135-145 K (test code = 3538670598) 3.5 mmol/L 3.5-5 CL (test code = 4672817173) 114 mmol/L 98-108 H CO2 TOTAL (test code = 0961713414) 20 mmol/L 23-31 L AGAP (test code = 5191987038) 2-16 BUN (test code = 4124921613) 17 mg/dL 7-23 GLUCOSE (test code = 2855103586) 81 mg/dL 70-110 CREATININE (test code = 0.74 mg/dL 0.5-1.04 6245890584) CALCIUM (test code = 3946104951) 8.6 mg/dL 8.6-10.6 eGFR Calculation (Non- mL/min/1.73m2 [place]) (test code = 7298716426) eGFR Calculation ( mL/min/1.73m2 [place]) (test code = 5155543796) ISI (test code = ISI) Association of Glomerular Filtration Rate (GFR) and Staging of Kidney Disease* + +-------- + ------+| GFR (mL/min/1.73 m2) ?| With Kidney Damage ?| ?Without Kidney Damage+ +-- + +| ?>90 ?| ?Stage one ?| ? Normal ?+ +------- + -------+| ?60-89 ?| ?Stage two ?| ? Decreased GFR ? + +-------- + ------+| ?30-59 ?| ?Stage three ?| ? Stage three ? + +-------- + ------+| ?15-29 ?| ?Stage four ? | ? Stage four ?+ +------- + -------+| ?<15 (or dialysis) ? ?| ?Stage five ? | ? Stage five ?+ +------- + -------+ *Each stage assumes the associated GFR level has been in effect for at least three months. ?Stages 1 to 5, with or without kidney disease, indicate chronic kidney disease. Notes: Determination of stages one and two (with eGFR >59mL/min/1.73 m2) requires estimation of kidney damage for at least three months as defined by structural or functional abnormalities of the kidney, manifested by either:Pathological abnormalities or Markers of kidney damage (including abnormalities in the composition of the blood or urine or abnormalities in imaging tests). Lab Interpretation (test code = Abnormal 63259-7) [facility] [id number] 02:16:24Impression: 1. ?A 0.4 cm obstructing stone is seen in the right proximal ureter withright-sided hydronephrosis and hydroureter. 2. ?Mural thickening of the urinary bladder is concerning for cystitis. Apunctate nonobstructing calculus is seen at the superior pole of the leftkidney. 3. ?Sigmoid diverticulosis with no evidence of diverticulitis. Superiorendplate compression deformity of T12 vertebral body. Exam: CT ABDOMEN PELVIS W CONTRAST Clinical History: Abd pain, acute, generalized Comparison: August 2015 Findings: The visualized lungs are clear and there is no evidence of pleuralpericardial effusion. The liver, gallbladder, spleen, adrenals, and the pancreas appear normal. A0.4 cm obstructive stone is seen in the right proximal ureter withresultant hydronephrosis and hydroureter. A punctate nonobstructingcalculus is seen at the superior pole of the left kidney (4:73). No evidence of free flui d, air, or lymphadenopathy seen in the abdomen andpelvis. No evidence of dilated bowel loops. Diverticulosis involving thesigmoid colon with no evidence of diverticulitis. Normal appendix is seenin theright lower quadrant. Prior hysterectomy with no adnexal masses. The urinary bladder shows muralthickening. The vasculature and the abdominal wall are within normallimits. T12 vertebral body shows superior endplate compression deformity. [facility], Radiant Results Inft User - 10/02/2019 9:17 PM CDTExam:CT ABDOMEN PELVIS W CONTRASTClinical History: Abd pain, acute, generalized Comparison: August 2015Findings: The visualized lungs are clear and there is no evidence of pleuralpericardial effusion.The liver, gallbladder, spleen, adrenals, and the pancreas appear normal. A0.4 cm obstructive stone is seen inthe right proximal ureter withresultant hydronephrosis and hydroureter. A punctate nonobstructingcalculus is seen at the superior pole of the left kidney (4:73).No evidence of free fluid, air, or lymphadenopathy seen in the abdomen andpelvis. No evidence of dilated bowel loops. Diverticulosis involving thesigmoid colon with no evidence of diverticulitis. Normal appendix is seenin the right lower quadrant. Prior hysterectomy with no adnexal masses. The urinary bladder shows muralthickening. The vasculature and the abdominal wall are within normallimits. T12 vertebral body shows superior endplate compression deformity.IMPRESSIONImpression: 1. A 0.4 cm obstructing stone is seen in the right proximalureter withright-sided hydronephrosis and hydroureter.2. Mural thickening of the urinary bladder is concerning for cystitis. Apunctate nonobstructing calculus is seen at the superior pole of the leftkidney.3. Sigmoid diverticulosis with no evidence of diverticulitis. Superiorendplate compression deformity of T12 vertebral body. [facility] [id number] 01:03:00 Test Item Value Reference Range Interpretation Comments TROPONIN I (test <0.012 See_Comment [Automated code = [id number]) message] The system which generated this result transmitted reference range : <=0.034 ng/mL. The reference range was not used to interpr et this result as normal/abnormal . ISI (test code = Equal or Less than ISI) 0.034 ng/ml---Normal ?Note: Cardiac troponin begins to rise 3-4 hours after the onset of ischemia. Repeat in 4-6 hours if the sample was drawn within 3-4 hours of the onset of the symptom and found normal. Between 0.035 and 0.120 ng/mL--- Borderline. Questionable myocardial injury or necrosis ? ?Note: Serial measurement may be necessary to confirm or exclude the diagnosis of myocardial injury or necrosis; Clinical correlation (symptoms, EKGs, imaging studies, and others) required; Repeat in 4-6 hours if clinically indicated. ? Equal or Higher than 0.121 ng/mL---Abnormal. Myocardial Injury or Necrosis Likely ? Biotin has been reported to cause a negative bias, interpret results relative to patient's use of biotin. ? Lab Interpretation Normal (test code = 95998-9) [facility]. METABOLIC PANEL ([id number])2019-10-03 00:52:00 Test Item Value Reference Range Interpretation Comments NA (test code = 140 mmol/L 135-145 7762725963) K (test code = 3.8 mmol/L 3.5-5 9367079976) CL (test code = 108 mmol/L 98-108 2022495095) CO2 TOTAL (test code = 24 mmol/L 23-31 3342311763) AGAP (test code = 2-16 8632547429) BUN (test code = 21 mg/dL 7-23 3835492095) GLUCOSE (test code = 99 mg/dL 70-110 9194695620) CREATININE (test code = 1.12 mg/dL 0.5-1.04 H 2179581183) TOTAL BILI (test code = 0.9 mg/dL 0.1-1.3 0670683713) CALCIUM (test code = 9.4 mg/dL 8.6-10.6 2188443963) T PROTEIN (test code = 7.4 g/dL 6.3-8.2 6424635093) ALBUMIN (test code = 4.5 g/dL 3.5-5 7400369801) ALK PHOS (test code = 95 U/L 34-122 3053070025) ALTv (test code = 14 U/L 5-35 1742-6) AST(SGOT) (test code = 26 U/L 13-40 2554798016) eGFR Calculation mL/min/1.73m2 (Non-) (test code = 7236466905) eGFR Calculation mL/min/1.73m2 () (test code = 5226782907) ISI (test code = ISI) Association of Glomerular Filtration Rate (GFR) and Staging of Kidney Disease* + --+ --+ ------+| GFR (mL/min/1.73 m2) ?| With Kidney Damage ?| ?Without Kidney Damage+ --------+ --------+ +| ?>90 ?| ?Stage one ?| ? Normal ?+ ---+ ---+ -------+| ?60-89 ?| ?Stage two ?| ? Decreased GFR ? + --+ --+ ------+| ?30-59 ?| ?Stage three ?| ? Stage three ? + --+ --+ ------+| ?15-29 ?| ?Stage four ? | ? Stage four ?+ ---+ ---+ -------+| ?<15 (or dialysis) ? ?| ?Stage five ? | ? Stage five ?+ ---+ ---+ -------+ *Each stage assumes the associated GFR level has been in effect for at least three months. ?Stages 1 to 5, with or without kidney disease, indicate chronic kidney disease. Notes: Determination of stages one and two (with eGFR >59mL/min/1.73 m2) requires estimation of kidney damage for at least three months as defined by structural or functional abnormalities of the kidney, manifested by either:Pathological abnormalities or Markers of kidney damage (including abnormalities in the composition of the blood or urine or abnormalities in imaging tests). Lab Interpretation Abnormal (test code = 28663-1) [facility] Test Item Value Reference Range Interpretation Comments MAGNESIUM (test code = 5077345560) 2.0 mg/dL 1.7-2.4 Lab Interpretation (test code = Normal 33410-6) [facility] Test Item Value Reference Range Interpretation Comments APPEARANCE (test code = Hazy Clear A 8054285490) COLOR (test code = Lexi Yellow A 4948662225) PH (test code = 4.8-8.0 8999485894) SP GRAVITY (test code = 1.003-1.030 H 0418329862) GLU U QUAL (test code = Normal Normal 2310033868) BLOOD (test code = Negative Negative 5205877586) KETONES (test code = 5 mg/dL Negative A 9937340531) PROTEIN (test code = Negative Negative 2887-8) UROBILIN (test code = 2.0 mg/dL Normal A 1483898611) BILIRUBIN (test code = 2 mg/dL Negative A 6410357357) NITRITE (test code = Negative Negative 5967803323) LEUK SERG (test code = Negative Negative 5429046763) RBC/HPF (test code = <1 See_Comment [Autom ated message] 8091271618) The system [facility] generated this result transmit alysha reference range : 0 - 3 HPF. The refe rence range was not u sed to interpret th is result as normal/abnormal . WBC/HPF (test code = See_Comment [Autom ated message] 8986200014) The system [facility] generated this result transmit alysha reference range : 0 - 5 HPF. The refe rence range was not u sed to interpret th is result as normal/abnormal . BACTERIA (test code = Few Negative A 3327765355) MUCOUS (test code = Moderate Negative LPF A 4388844929) SQ EPITH (test code = HPF 1862421394) Ictotest (test code = Negative 0149652668) Lab Interpretation (test Abnormal code = 94971-9) [facility] Test Item Value Reference Range Interpretation Comments LIPASE (test code = 5318425615) 58 U/L 0-220 Lab Interpretation (test code = Normal 50817-7) [facility] [id number] 00:27:00 Test Item Value Reference Range Interpretation Comments WBC (test code = See_Comment [Automated 1590-2) message] The sy stem which generated this result transmitted reference range : 4.30 - 11.10 10*3/?L. The reference range was not used to interpret this result as normal/abnormal . RBC (test code = See_Comment [Automated 789-8) message] The sy stem which generated this result transmitted reference range : 3.93 - 5.25 10*6/?L. The reference range was not used to interpret this result as normal/abnormal . HGB (test code = 13.2 g/dL 11.6-15 718-7) HCT (test code = 39.5 % 35.7-45.2 4544-3) MCV (test code = 95.6 fL 80.6-95.5 H 787-2) MCH (test code = 32.0 pg 25.9-32.8 785-6) MCHC (test code = 33.4 g/dL 31.6-35.1 786-4) RDW-SD (test code = 43.1 fL 39-49.9 41003-7) RDW-CV (test code = 12.3 % 12-15.5 788-0) PLT (test code = See_Comment [Automated 777-3) message] The sy stem which generated this result transmitted reference range : 166 - 358 10*3/ ?L. The reference r mima was not used to interpret this result as normal/abnormal . MPV (test code = 10.7 fL 9.5-12.9 66859-0) NRBC/100 WBC (test See_Comment [Automat ed code = 5611736212) message] The system which generated this result transmitted reference range : 0.0 - 10.0 /100 WBCs. The refer ence range was not u sed to interpret th is result as normal/abnormal . NRBC x10^3 (test code <0.01 See_Comment [Auto mated = 8416643014) message] The s ystem which generated this result transmitted reference range : 10*3/?L. The reference range was not used to interpret this result as normal/abnormal . GRAN MAT (NEUT) % 60.7 % (test code = 770-8) IMM GRAN % (test code 0.30 % = 2001037917) LYMPH % (test code = 27.7 % 736-9) MONO % (test code = 10.7 % 5905-5) EOS % (test code = 0.3 % 713-8) BASO % (test code = 0.3 % 706-2) GRAN MAT x10^3(ANC) 5.70 10*3/uL 1.88-7.09 (test code = 1184568839) IMM GRAN x10^3 (test 0.03 10*3/uL 0-0.06 code = 1572292343) LYMPH x10^3 (test code 2.60 10*3/uL 1.32-3.29 = 731-0) MONO x10^3 (test code 1.01 10*3/uL 0.33-0.92 H = 742-7) EOS x10^3 (test code = 0.03 10*3/uL 0.03-0.39 711-2) BASO x10^3 (test code 0.03 10*3/uL 0.01-0.07 = 704-7) Lab Interpretation Abnormal (test code = 34816-4) [facility] [id number] 23:48:43 No acute cardiopulmonary abnormality. Preliminary Report Dictated by Resident: Flex Cantrell MD., have reviewed this study and agree with theabove report.XR CHEST 1 VW Comparison: 01/12/2017, CT chest 07/27/2019 History: cough Findings: Subsegmental atelectasis is seen inthe right lung base. The lungs areotherwise clear. No pleural effusion, focal consolidation, or pneum othoraxis identified. The cardiomediastinal silhouette is normal in size. No acute osseous abnormality is present. [facility], Radiant Results Inft User - 10/02/2019 6:49 PM CDTXR CHEST 1 VWComparison: 01/12/2017, CT chest 07/27/2019History: cough Findings:Subsegmental atelectasis is seen in the right lungbase. The lungs areotherwise clear. No pleural effusion, focal consolidation, or pneumothoraxis identified. The cardiomediastinal silhouette is normal in size. No acute osseous abnormality is present.IMPRESSIONNo acute cardiopulmonary abnormality.Preliminary Report Dictated by Resident: Flex Fang MD., have reviewed this study and agree with theabove report.[facility] 2019-07-27 04:09:00 Test Item Value Reference Range Interpretation Comments WBC (test code = See_Comment [Automated 6690-2) message] The sy stem which generated this result transmitted reference range : 4.30 - 11.10 10*3/?L. The reference range was not used to interpret this result as normal/abnormal . RBC (test code = See_Comment L [Automated 789-8) message] The sy stem which generated this result transmitted reference range : 3.93 - 5.25 10*6/?L. The reference range was not used to interpret this result as normal/abnormal . HGB (test code = 11.6 g/dL 11.6-15 718-7) HCT (test code = 34.0 % 35.7-45.2 L 4544-3) MCV (test code = 94.7 fL 80.6-95.5 787-2) MCH (test code = 32.3 pg 25.9-32.8 785-6) MCHC (test code = 34.1 g/dL 31.6-35.1 786-4) RDW-SD (test code = 45.1 fL 39-49.9 68297-9) RDW-CV (test code = 13.0 % 12-15.5 788-0) PLT (test code = See_Comment [Automated 777-3) message] The sy stem which generated this result transmitted reference range : 166 - 358 10*3/ ?L. The reference r mima was not used to interpret this result as normal/abnormal . MPV (test code = 9.6 fL 9.5-12.9 26078-5) NRBC/100 WBC (test See_Comment [Automat ed code = 5937670628) message] The system which generated this result transmitted reference range : 0.0 - 10.0 /100 WBCs. The refer ence range was not u sed to interpret th is result as normal/abnormal . NRBC x10^3 (test code <0.01 See_Comment [Auto mated = 1870562684) message] The s ystem which generated this result transmitted reference range : 10*3/?L. The reference range was not used to interpret this result as normal/abnormal . GRAN MAT (NEUT) % 33.8 % (test code = 770-8) IMM GRAN % (test code 0.20 % = 0914872110) LYMPH % (test code = 50.5 % 736-9) MONO % (test code = 12.4 % 5905-5) EOS % (test code = 2.5 % 713-8) BASO % (test code = 0.6 % 706-2) GRAN MAT x10^3(ANC) 1.61 10*3/uL 1.88-7.09 L (test code = 1619959250) IMM GRAN x10^3 (test <0.03 0-0.06 code = 4276358445) LYMPH x10^3 (test code 2.41 10*3/uL 1.32-3.29 = 731-0) MONO x10^3 (test code 0.59 10*3/uL 0.33-0.92 = 742-7) EOS x10^3 (test code = 0.12 10*3/uL 0.03-0.39 711-2) BASO x10^3 (test code 0.03 10*3/uL 0.01-0.07 = 704-7) Lab Interpretation Abnormal (test code = 22265-1) [facility] [id number] 03:52:00 Test Item Value Reference Range Interpretation Comments TROPONIN I (test 0.001 ng/mL See_Comment [Automated code = 9213059063) message] The system which generated this result transmitted reference range : <=0.034. The reference range was not used to interpret this result as normal/abnormal . ISI (test code = Equal or Less than ISI) 0.034 ng/ml---Normal ?Note: Cardiac troponin begins to rise 3-4 hours after the onset of ischemia. Repeat in 4-6 hours if the sample was drawn within 3-4 hours of the onset of the symptom and found normal. Between 0.035 and 0.120 ng/mL--- Borderline. Questionable myocardial injury or necrosis ? ?Note: Serial measurement may be necessary to confirm or exclude the diagnosis of myocardial injury or necrosis; Clinical correlation (symptoms, EKGs, imaging studies, and others) required; Repeat in 4-6 hours if clinically indicated. ? Equal or Higher than 0.121 ng/mL---Abnormal. Myocardial Injury or Necrosis Likely ? Biotin has been reported to cause a negative bias, interpret results relative to patient's use of biotin. ? Lab Interpretation Normal (test code = 14150-7) [facility]. METABOLIC PANEL (44222)2019-07-27 03:41:00 Test Item Value Reference Range Interpretation Comments NA (test code = 142 mmol/L 135-145 8794326170) K (test code = 4.0 mmol/L 3.5-5 6029522543) CL (test code = 111 mmol/L 98-108 H 9868602432) CO2 TOTAL (test code = 26 mmol/L 23-31 4075346043) AGAP (test code = 2-16 8078733856) BUN (test code = 14 mg/dL 7-23 5077032610) GLUCOSE (test code = 96 mg/dL 70-110 8443228624) CREATININE (test code = 0.96 mg/dL 0.5-1.04 4256797885) TOTAL BILI (test code = 0.1 mg/dL 0.1-1.9 6210532418) CALCIUM (test code = 8.6 mg/dL 8.6-10.6 8772060148) T PROTEIN (test code = 6.3 g/dL 6.3-8.2 4409737988) ALBUMIN (test code = 3.7 g/dL 3.5-5 0537339839) ALK PHOS (test code = 85 U/L 34-122 8467854110) ALTv (test code = 16 U/L 5-35 1742-6) AST(SGOT) (test code = 18 U/L 13-40 5836911621) eGFR Calculation mL/min/1.73m2 (Non-) (test code = 7405330293) eGFR Calculation mL/min/1.73m2 () (test code = 3361844875) ISI (test code = ISI) Association of Glomerular Filtration Rate (GFR) and Staging of Kidney Disease* + --+ --+ ------+| GFR (mL/min/1.73 m2) ?| With Kidney Damage ?| ?Without Kidney Damage+ --------+ --------+ +| ?>90 ?| ?Stage one ?| ? Normal ?+ ---+ ---+ -------+| ?60-89 ?| ?Stage two ?| ? Decreased GFR ? + --+ --+ ------+| ?30-59 ?| ?Stage three ?| ? Stage three ? + --+ --+ ------+| ?15-29 ?| ?Stage four ? | ? Stage four ?+ ---+ ---+ -------+| ?<15 (or dialysis) ? ?| ?Stage five ? | ? Stage five ?+ ---+ ---+ -------+ *Each stage assumes the associated GFR level has been in effect for at least three months. ?Stages 1 to 5, with or without kidney disease, indicate chronic kidney disease. Notes: Determination of stages one and two (with eGFR >59mL/min/1.73 m2) requires estimation of kidney damage for at least three months as defined by structural or functional abnormalities of the kidney, manifested by either:Pathological abnormalities or Markers of kidney damage (including abnormalities in the composition of the blood or urine or abnormalities in imaging tests). Lab Interpretation Abnormal (test code = 67812-1) [facility] [id number] 03:34:00 Test Item Value Reference Range Interpretation Comments PROTIME PATIENT (test See_Comment [Auto mated message] code = 5964-2) The system [employer] generated this result transmitted ref erence range: 12.0 - 1 4.7 Seconds. The re ference range was not u sed to interpret this result as normal/abnor mal. INR (test code = 6301-6) Nor mal INR <1.1; Warfarin Therap eutic range 2.0 to 3. 0 or 2.5 to 3.5, dep ending upon the indica tions. Lab Interpretation (test Normal code = 92620-2) [facility]"
[2021-04-12 08:39] LABS: Urine Blood 1+ (Negative); Urine Glucose Negative (Negative); Urine Protein Negative (Negative); Urine Specific Gravity >=1.030 (1.005-1.030)
[2021-04-12 08:44] LABS: Absolute Lymphocytes (CBC) 2.4 K/uL (0.7-4.9); Basophils % 0.4 % (0-1.3); Hematocrit 37.7 % (36.0-45.0); Lymphocytes % 38.7 % (15.3-44.8); MPV 8.2 fL (7.6-11.3); RBC Red Blood Cell Count 4.02 M/uL (3.86-4.86)
[2021-04-12 08:50] LABS: Protime INR 0.89
[2021-04-12 08:52] LABS: Urine Bacteria <20 /HPF (<20); Urine Mucus LIGHT /HPF (NONE SEEN)
[2021-04-12 09:02] LABS: ALT/SGPT 20 U/L (12-78); AST/SGOT 12 U/L (15-37); Albumin 3.7 g/dL (3.4-5.0); Alkaline Phosphatase 93 U/L (45-117); BUN Blood Urea Nitrogen 13 mg/dL (7-18); Bicarbonate 24 mmol/L (21-32); Bilirubin Direct 0.1 mg/dL (0-0.2); Bilirubin Total 0.6 mg/dL (0.2-1.0); Glucose Level 105 mg/dL (74-106); Magnesium 2.4 mg/dL (1.8-2.4); NT PRO-BNP 129 pg/mL (<125); Potassium 3.7 mmol/L (3.5-5.1); Protein, Total 7.3 g/dL (6.4-8.2); Sodium Level 146 mmol/L (136-145); Troponin (Emerg Dept Use Only) < 0.02 ng/mL (0.0-0.045)
[2021-04-12] MEDS ORDERED: MORPHINE 4 MG/ML SYR ONE (09:03)
[2021-04-12] MEDS ORDERED: ONDANSETRON 4 MG/2 ML VIAL ONE (09:03)
[2021-04-12 09:34] LABS: SARS-COV-2 RT PCR NEGATIVE (NEGATIVE)
[2021-04-12] MEDS ORDERED: LIDOCAINE 1% MPF 5 ML VIAL ONE (10:02)
[2021-04-12] MEDS ORDERED: CEFTRIAXONE 1000 MG/VIAL ONE (10:02)
--- NOTE | 2021-04-12 10:02 | RAD REPORT ---
EXAM DESCRIPTION: RAD - Chest Single View - 04/12/2021 8:54 am CLINICAL HISTORY: CHEST PAIN COMPARISON: December 2015 TECHNIQUE: AP portable chest image was obtained 04/12/2021 8:54 am . FINDINGS: Lungs are clear. Interstitial pattern matches comparison. Heart and vasculature are normal . No measurable pleural effusion and no pneumothorax. No acute bony abnormality seen. No acute aortic findings suspected. IMPRESSION: No acute cardiopulmonary process. No significant change from comparison study.
[2021-04-12] MEDS ORDERED: NA CHLORIDE 0.9% 500 ML ONE (10:07)
[2021-04-12] MEDS ORDERED: KETOROLAC 30 MG/ML INJ ONE (10:07)
--- NOTE | 2021-04-12 10:35 | RAD REPORT ---
EXAM DESCRIPTION: CT - Chest For Pe Angio - 04/12/2021 10:19 am CLINICAL HISTORY: CHEST PAIN COMPARISON: Chest Single View dated 04/12/2021; Abdomen Pelvis W Contrast dated 04/12/2021 TECHNIQUE: Dynamically enhanced 3 mm thick images of the chest were obtained during administration o f approximately 150mL Isovue 370 IV contrast. Coronal and oblique MIP reconstruction images were gene rated and reviewed. Exam utilizes a protocol to evaluate the pulmonary arterial tree. All CT scans are performed using dose optimization technique as appropriate and may include automated exposure control or mA/KV adjustment according to patient size. FINDINGS: No pulmonary emboli are identified. The aorta as imaged shows no acute or suspicious finding. No cardiomegaly, pericardial thickening or effusion. Rare aortic atherosclerotic calcifications are present with no measurable coronary artery c alcifications. No infiltrate or mass in the lung parenchyma. No pleural effusion or pleural thickening. No mediastinal or hilar suspicious masses. No chest wall masses or abnormal axillary lymphadenopathy. Minimal thoracic spine degenerative change approximately 20% compression fracture deformity involve s the T12 body. This is believed to be chronic. Posterior wall height is preserved and no acute fract ure line is seen. IMPRESSION: No pulmonary emboli identified. No other significant or suspicious findings.
--- NOTE | 2021-04-12 10:38 | RAD REPORT ---
EXAM DESCRIPTION: CT - Abdomen Pelvis W Contrast - 04/12/2021 10:19 am CLINICAL HISTORY: dysuria, flank pain COMPARISON: Chest For Pe Angio dated 04/12/2021; Stone Protocol dated 03/02/2018 TECHNIQUE: Biphasic, helical CT imaging of the abdomen and pelvis was performed following 100 ml non -ionic IV contrast. No oral contrast administered. All CT scans are performed using dose optimization technique as appropriate and may include automated exposure control or mA/KV adjustment according to patient size. FINDINGS: No suspicious findings in the lung bases. The liver, spleen, and pancreas show no suspicious findings. Gallbladder and biliary tree are also wi thout suspicious finding. Symmetric renal function is seen with no hydronephrosis or suspicious renal mass. No pyelonephritis o r acute parenchymal process. No bladder abnormalities. No adrenal abnormalities. A 5 millimeter nonob structing calyx calculus is present mid left kidney enlarged from 2018 CT imaging. No ureteral calcul i or bladder calculi seen. Multiple phleboliths are seen in the pelvic floor. Uterus is absent. Ovari es are absent or atrophic. No adnexal abnormality. No dilated bowel loops or bowel wall thickening. Prominent sigmoid diverticulosis is present without diverticulitis. No appendicitis present. No free air, free fluid or inflammatory stranding. No herni a, mass or bulky lymphadenopathy. Bony degenerative changes are present. There is 20% compression fracture deformity of the T12 body in volving superior endplate. Posterior wall height is preserved. No acute fracture line or paraspinal a bnormality seen. This is chronic. IMPRESSION: Contrast enhanced CT abdomen and pelvis showing no acute or emergent finding.
--- NOTE | 2021-04-12 11:23 | ER ---
Nurse's Notes [facility] Name: Sydni Verma [place] Age: 65 yrs Sex: Female : 1955 Arrival Date: 04/12/2021 Time: 08:04 Bed 5 Private MD: Diagnosis: Chest pain, unspecified;UTI/ Urinary tract infection, site not specified Presentation: 04/12 08:12 Chief complaint: Patient states: pain to right side of chest through back, feels like a iw knife stabbing through her chest, started last night, worse when she lays down, had just gotten over a cough and cold , also is having urinary frequency and urgency, has issues with her kidneys and urinary tract. Coronavirus screen: At this time, the client does not indicate any symptoms associated with coronavirus-19. Ebola Screen: Patient negative for fever greater than or equal to 101.5 degrees Fahrenheit, and additional compatible Ebola Virus Disease symptoms Patient denies exposure to infectious person. Patient denies travel to an Ebola-affected area in the 21 days before illness onset. No symptoms or risks identified at this time. Initial Sepsis Screen: Does the patient meet any 2 criteria? No. Patient's initial sepsis screen is negative. Does the patient have a suspected source of infection? No. Patient's initial sepsis screen is negative. Risk Assessment: Do you want to hurt yourself or someone else? Patient reports no desire to harm self or others. Onset of symptoms was April 12, 2021. 08:12 Method Of Arrival: Ambulatory iw 08:12 Acuity: BRODY 3 iw Triage Assessment: 08:15 General: Appears distressed, uncomfortable, Behavior is cooperative, appropriate for bp age, anxious. Pain: Complains of pain in anterior aspect of right upper chest. Historical: - Allergies: 08:16 No Known Allergies; iw - Home Meds: 08:16 None [Active]; iw - PMHx: 08:16 None; iw - Immunization history:: Adult Immunizations up to date. - Social history:: Smoking status: Reported history of juuling and/or vaping. Screenin:14 Abuse screen: Denies threats or abuse. Nutritional screening: No deficits noted. jh6 Tuberculosis screening: No symptoms or risk factors identified. Fall Risk None identified. Assessment: 08:11 General: Appears in no apparent distress. Behavior is calm, cooperative, appropriate jh6 for age. Pain: Complains of pain in anterior aspect of right upper chest Pain does not radiate. Pain currently is 5 out of 10 on a pain scale. Quality of pain is described as sharp, Pain began 1 day ago. Is continuous, Aggravated by increased activity, coughing or taking a deep breath Also complains of cough and congestion x 1wk. Cardiovascular: No deficits noted. Reports chest pain. Respiratory: Reports cough that is non-productive, since one week Airway is patent Trachea midline Respiratory effort is even, unlabored, relaxed, Respiratory pattern is regular, symmetrical, the patient has mild shortness of breath. 10:54 Reassessment: No changes from previously documented assessment. Patient and/or family bp updated on plan of care and expected duration. Pain level reassessed. 11:45 Reassessment: No changes from previously documented assessment. Patient and/or family jh6 updated on plan of care and expected duration. Pain level reassessed. Patient is alert, oriented x 3, equal unlabored respirations, skin warm/dry/pink. Pain: Complains of pain in anterior aspect of right upper chest Pain currently is 3 out of 10 on a pain scale. Is continuous. 12:18 Reassessment: ADMIT CANCELLED. PT TBDC AFTER REPEAT TROP AND FURTHER TREATMENT. bp 13:28 Reassessment: No changes from previously documented assessment. Patient and/or family bp updated on plan of care and expected duration. Pain level reassessed. Patient is alert, oriented x 3, equal unlabored respirations, skin warm/dry/pink. REPEAT TROP DRAWN AND SENT. 14:11 Reassessment: PT D/C HOME AMBULATORY, DX WITH NON-CARDIAC CP AND UTI. bp Vital Signs: 08:12 BP 102 / 83; Pulse 55; Resp 16 S; Temp 98.3; Pulse Ox 98% on R/A; Weight 61.23 kg; iw Height 5 ft. 8 in. (172.72 cm); 10:00 BP 108 / 80; Pulse 60; Resp 18; Pulse Ox 100% ; jh6 10:54 BP 125 / 73; Pulse 60; Resp 17; Pulse Ox 99% ; bp 11:46 BP 122 / 76; Pulse 59; Resp 18; Pulse Ox 100% ; Pain 3/10; jh6 12:18 BP 133 / 78; Pulse 52; Resp 16; Pulse Ox 99% ; bp 13:28 BP 126 / 60; Pulse 57; Resp 12; Pulse Ox 96% ; bp 14:11 BP 133 / 76; Pulse 58; Resp 19; Temp 97.9; Pulse Ox 100% ; bp 08:12 Body Mass Index 20.53 (61.23 kg, 172.72 cm) ED Course: 08:04 Patient arrived in ED. am2 08:09 Wayne Pelaez, RN is Primary Nurse. bp 08:14 Luiz Wolf NP is PHCP. pm1 08:14 Earle Mejía MD is Attending Physician. pm1 08:14 band instrument repairer on. Pulse ox on. NIBP on. Door closed. Noise minimized. Warm blanket jh6 given. 08:15 Arm band placed on. EKG completed in triage. Results shown to MD. bp 08:15 Call light in reach. Side rails up X 1. jh6 08:16 Triage completed. iw 08:38 Inserted saline lock: 22 gauge in right antecubital area, using aseptic technique. jh6 08:38 Initial lab(s) drawn, by me, sent to lab. Urine collected: clean catch specimen, clear, jh6 COVID swab sent to lab. Flu and/or RSV swab sent to lab. 08:39 COVID-19/FLU A+B (Document "Date of Onset" if Symptomatic) Sent. jh6 08:40 Urine Microscopic Only Sent. jh6 08:50 Urine Microscopic Only Sent. jh6 08:50 XRAY Chest (1 view) Sent. jh6 08:54 XRAY Chest (1 view) In Process Unspecified. EDMS 10:09 X-ray(s) taken. jh6 10:19 CT Chest For PE Angio In Process Unspecified. EDMS 10:19 CT Abd/Pelvis - IV Contrast Only In Process Unspecified. EDMS 10:25 Patient moved back from CT. jh6 11:22 Donta Fan DO is Hospitalizing Provider. pm1 14:11 No provider procedures requiring assistance completed. IV discontinued, intact, bp bleeding controlled, No redness/swelling at site. Pressure dressing applied. Administered Medications: 09:07 Drug: Zofran (Ondansetron) 4 mg Route: IVP; Site: right antecubital; bp 11:32 Follow up: Response: No adverse reaction bp 09:08 Drug: morphine 4 mg Route: IVP; Site: right antecubital; bp 11:32 Follow up: Response: No adverse reaction bp 10:30 Drug: Ketorolac 30 mg Route: IVP; Site: right antecubital; jh6 11:32 Follow up: Response: Pain is decreased bp 10:30 Drug: NS 0.9% 500 ml Route: IV; Rate: bolus; Site: right antecubital; jh6 12:29 Follow up: IV Status: Completed infusion; IV Intake: 500ml bp 10:30 Drug: Rocephin (cefTRIAXone) 1 grams Route: IV; Rate: calculated rate; Site: right jh6 antecubital; 12:28 Follow up: IV Status: Completed infusion; IV Intake: 50ml bp 11:44 Drug: Aspirin 325 mg Route: PO; jh6 14:18 Follow up: Response: No adverse reaction bp 12:14 Drug: SOLU-Medrol (methylPrednisoLONE) 40 mg Route: IVP; Site: right antecubital; jh6 12:14 Drug: Albuterol - atroVENT (ipratropium) (3:1) (2.5 mg - 0.5 mg) 3 ml Route: Nebulizer; jh6 12:35 Follow up: Response: No adverse reaction jh6 12:35 Follow up: Response: No adverse reaction 6 Intake: 12:28 IV: 50ml; Total: 50ml. bp 12:29 IV: 500ml; Total: 550ml. bp Outcome: 11:22 Decision to Hospitalize by Provider. pm1 13:50 Discharge ordered by MD. pm1 14:11 Discharged to home ambulatory. bp 14:11 Condition: stable 14:11 Discharge instructions given to patient, Instructed on discharge instructions, follow up and referral plans. medication usage, Demonstrated understanding of instructions, follow-up care, medications. 14:13 Patient left the ED. iw Signatures: Dispatcher [employer] EDMS Savannah Everett RN RN iw Luiz Wolf NP POLYSTYRENE MOLDING MACHINE TENDER pm1 Airam Patterson am2 Wayne Pelaez RN RN bp Idalia Rousseau RN RN jh6 Corrections: (The following items were deleted from the chart) 08:15 08:14 PMHx: Anxiety; 6 6 08:15 08:14 PMHx: Depression; jh6 jh6 08:15 08:14 PMHx: Back pain; jh6 jh6
--- NOTE | 2021-04-12 11:23 | EDPHYS ---
Physician Documentation [facility] Name: Sydni Verma [place] Age: 65 yrs Sex: Female : 1955 Arrival Date: 04/12/2021 Time: 08:04 Bed 5 Private MD: ED Physician Earle Mejía HPI: 04/12 09:30 This 65 yrs old Female presents to ER via Ambulatory with complaints of right sided pm1 chest pain. 09:30 The patient or guardian reports chest pain that is located primarily in the anterior pm1 chest wall, right. 09:30 Onset: last night. The pain radiates to right back. Associated signs and symptoms: pm1 Pertinent positives: cough, Pertinent negatives: nausea, shortness of breath, vomiting. The chest pain is described as sharp. Duration: The patient or guardian reports a single episode, that is still ongoing. Modifying factors: The symptoms are alleviated by applying pressure on her right chest area with her arm. the symptoms are aggravated by cough, deep breath. Severity of pain: in the emergency department the pain is unchanged. The patient has not experienced similar symptoms in the past. The patient has not recently seen a physician. Patient reports onset of cough 1 week ago with chest pain onset last night. Chest pain is sharp and radiates to right back area. Increased pain with deep breathing, cough, and lying down on right side. Improved with pressure applied to right chest with her arm. Historical: - Allergies: 08:16 No Known Allergies; iw - Home Meds: 08:16 None [Active]; iw - PMHx: 08:16 None; iw - Immunization history:: Adult Immunizations up to date. - Social history:: Smoking status: Reported history of juuling and/or vaping. ROS: 09:30 Constitutional: Negative for fever, chills, and weight loss. pm1 09:30 Abdomen/GI: Negative for abdominal pain, nausea, vomiting, diarrhea, and constipation, Back: Negative for injury and pain, MS/Extremity: Negative for injury and deformity, Skin: Negative for injury, rash, and discoloration, Neuro: Negative for headache, weakness, numbness, tingling, and seizure. 09:30 Cardiovascular: Positive for chest pain, Negative for edema, palpitations. 09:30 All other systems are negative. Exam: 09:30 Constitutional: This is a well developed, well nourished patient who is awake, alert, pm1 and in no acute distress. Head/Face: Normocephalic, atraumatic. 09:30 Respiratory: Lungs have equal breath sounds bilaterally, clear to auscultation and percussion. No rales, rhonchi or wheezes noted. No increased work of breathing, no retractions or nasal flaring. 09:30 Back: No spinal tenderness. No costovertebral tenderness. Full range of motion. Skin: Warm, dry with normal turgor. Normal color with no rashes, no lesions, and no evidence of cellulitis. MS/ Extremity: Pulses equal, no cyanosis. Neurovascular intact. Full, normal range of motion. 09:30 Chest/axilla: Inspection: normal, Palpation: crepitus, is not appreciated, tenderness, that is mild, of the mid-sternal area, that totally reproduces the patient's complaints. 09:30 Cardiovascular: Exam negative for acute changes, Rate: normal, Rhythm: regular, Pulses: no pulse deficits are appreciated, Heart sounds: normal, normal S1and S2. 09:30 Abdomen/GI: Inspection: abdomen appears normal, Palpation: abdomen is soft and non-tender, in all quadrants. 09:30 Neuro: Exam negative for acute changes, Orientation: is normal, Mentation: is normal, Memory: is normal, Motor: is normal, moves all fours. Vital Signs: 08:12 BP 102 / 83; Pulse 55; Resp 16 S; Temp 98.3; Pulse Ox 98% on R/A; Weight 61.23 kg; iw Height 5 ft. 8 in. (172.72 cm); 10:00 BP 108 / 80; Pulse 60; Resp 18; Pulse Ox 100% ; jh6 10:54 BP 125 / 73; Pulse 60; Resp 17; Pulse Ox 99% ; bp 11:46 BP 122 / 76; Pulse 59; Resp 18; Pulse Ox 100% ; Pain 3/10; jh6 12:18 BP 133 / 78; Pulse 52; Resp 16; Pulse Ox 99% ; bp 13:28 BP 126 / 60; Pulse 57; Resp 12; Pulse Ox 96% ; bp 14:11 BP 133 / 76; Pulse 58; Resp 19; Temp 97.9; Pulse Ox 100% ; bp 08:12 Body Mass Index 20.53 (61.23 kg, 172.72 cm) iw MDM: 08:14 Patient medically screened. pm1 09:01 Differential diagnosis: acute myocardial infarction, acute pericarditis, chest wall pm1 pain, pleurisy, pneumonia, pulmonary embolus, thoracic aortic disection. 09:01 Differential diagnosis: uti, pyelonephritis, kidney stones. pm1 10:42 Data reviewed: vital signs. Data interpreted: Pulse oximetry: on room air is 100 %. pm1 Interpretation: normal. 11:52 Physician consultation: Donta Fan DO would like medications started, Solu-Medrol, pm1 breathing treatment, and repeat troponin. If repeat troponin is negative can follow up with PCP. Impression after evaluating the patient is pleurisy. May discharge patient home with steroids if negative troponin, in the emergency department to see patient at 11:54. 04/12 08:22 Order name: Basic Metabolic Panel; Complete Time: 09:29 pm1 04/12 08:22 Order name: CBC with Diff; Complete Time: 09:01 pm1 04/12 08:22 Order name: LFT's; Complete Time: 09:29 pm1 04/12 08:22 Order name: Magnesium; Complete Time: 09:29 pm1 04/12 08:22 Order name: NT PRO-BNP; Complete Time: 09:29 pm1 04/12 08:22 Order name: PT-INR; Complete Time: 09:01 pm1 04/12 08:22 Order name: Troponin (emerg Dept Use Only); Complete Time: 09:29 pm1 04/12 08:22 Order name: XRAY Chest (1 view); Complete Time: 10:24 pm1 04/12 08:22 Order name: COVID-19/FLU A+B (Document "Date of Onset" if Symptomatic); Complete Time: pm1 09:38 04/12 08:22 Order name: Urine Microscopic Only; Complete Time: 09:01 pm1 04/12 08:39 Order name: Urine Dipstick-Ancillary; Complete Time: 09:01 EDMS 04/12 08:53 Order name: Urine Culture EDMS 04/12 09:47 Order name: CT Chest For PE Angio; Complete Time: 10:40 pm1 04/12 12:23 Order name: Troponin (emerg Dept Use Only): Draw at 1300; Complete Time: 13:49 pm1 04/12 08:22 Order name: EKG; Complete Time: 08:23 pm1 04/12 08:22 Order name: Cardiac monitoring; Complete Time: 08:39 pm1 04/12 08:22 Order name: EKG - Nurse/Tech; Complete Time: 08:50 pm1 04/12 08:22 Order name: IV Saline Lock; Complete Time: 08:39 pm1 04/12 08:22 Order name: Labs collected and sent; Complete Time: 08:39 pm1 04/12 08:22 Order name: O2 Per Protocol; Complete Time: 08:24 pm1 04/12 08:22 Order name: O2 Sat Monitoring; Complete Time: 08:24 pm1 12 09:47 Order name: CT Abd/Pelvis - IV Contrast Only; Complete Time: 10:40 pm1 12 08:22 Order name: Urine Dipstick-Ancillary (obtain specimen); Complete Time: 08:39 pm1 Administered Medications: 09:07 Drug: Zofran (Ondansetron) 4 mg Route: IVP; Site: right antecubital; bp 11:32 Follow up: Response: No adverse reaction bp 09:08 Drug: morphine 4 mg Route: IVP; Site: right antecubital; bp 11:32 Follow up: Response: No adverse reaction bp 10:30 Drug: Ketorolac 30 mg Route: IVP; Site: right antecubital; [facility] 11:32 Follow up: Response: Pain is decreased bp 10:30 Drug: NS 0.9% 500 ml Route: IV; Rate: bolus; Site: right antecubital; [facility] 12:29 Follow up: IV Status: Completed infusion; IV Intake: 500ml bp 10:30 Drug: Rocephin (cefTRIAXone) 1 grams Route: IV; Rate: calculated rate; Site: right [facility] antecubital; 12:28 Follow up: IV Status: Completed infusion; IV Intake: 50ml bp 11:44 Drug: Aspirin 325 mg Route: PO; [facility] 14:18 Follow up: Response: No adverse reaction bp 12:14 Drug: SOLU-Medrol (methylPrednisoLONE) 40 mg Route: IVP; Site: right antecubital; [facility] 12:14 Drug: Albuterol - atroVENT (ipratropium) (3:1) (2.5 mg - 0.5 mg) 3 ml Route: Nebulizer; [facility] 12:35 Follow up: Response: No adverse reaction 6 12:35 Follow up: Response: No adverse reaction [facility] Disposition: 18:11 I agree with the assessment and plan of care. ma2 18:11 Co-signature as Attending Physician, Earle Mejía MD. ma2 Disposition Summary: 04/12/21 13:50 Discharge Ordered Location: Home(04/12/21 13:50) pm1 Problem: new(04/12/21 13:50) pm1 Symptoms: have improved(04/12/21 13:50) pm1 Condition: Stable(04/12/21 13:50) pm1 Diagnosis - Chest pain, unspecified(04/12/21 13:50) pm1 - UTI/ Urinary tract infection, site not specified(04/12/21 14:01) pm1 Followup: pm1 - With: Emergency Department - When: As needed - Reason: Worsening of condition Followup: pm1 - With: Private Physician - When: 2 - 3 days - Reason: Recheck today's complaints, Continuance of care, Re-evaluation by your physician Discharge Instructions: - Discharge Summary Sheet pm1 - Nonspecific Chest Pain, Adult pm1 - Pleurisy pm1 - Urinary Tract Infection, Adult pm1 Forms: - Medication Reconciliation Form pm1 - Thank You Letter pm1 - Antibiotic Education pm1 - Prescription Opioid Use pm1 Prescriptions: - Diclofenac Sodium 75 mg Oral tablet,delayed release (DR/EC) - take 1 tablet by ORAL route 2 times per day As needed; 30 tablet; Refills: 0, pm1 Product Selection Permitted - Ventolin HFA 90 mcg/actuation Inhalation HFA aerosol inhaler - inhale 1 puff by INHALATION route every 4-6 hours As needed; 1 Inhaler; pm1 Refills: 0, Product Selection Permitted - Medrol (Giovanny) 4 mg Oral Tablets, Dose Pack - take 1 tablet by ORAL route as directed - follow package instructions; 1 pm1 packet; Refills: 0, Product Selection Permitted - Bactrim DS 800-160 mg Oral Tablet - take 1 tablet by ORAL route every 12 hours for 10 days; 20 tablet; Refills: 0, pm1 Product Selection Permitted Signatures: Dispatcher [employer] Savannah Perez RN RN iw Luiz Wolf, SUSI RESEARCH TECHNICIAN pm1 Wayne Pelaez, RN RN bp Earle Mejía MD MD sc2 Idalia Rousseau RN RN [facility] Corrections: (The following items were deleted from the chart) 08:15 08:14 PMHx: Anxiety; [place] [id number] 08:15 08:14 PMHx: Depression; [place] [id number] 08:15 08:14 PMHx: Back pain; [place] [id number] 11:57 11:22 Observation pm1 pm1 : 11:22 PreDonta sotelo pm1 pm1 11:57 11:22 Telemetry/MedSurg (observation) pm1 pm1 11: 11:22 Stable pm1 pm1 11:22 new pm1 pm1 : 11:22 have improved pm1 pm1 11:22 Standard pm1 pm1 :57 11:22 pm1 pm1 11:57 11:22 Chest pain, unspecified pm1 pm1 : 11:23 UTI/ Urinary tract infection, site not specified pm1 pm1
[2021-04-12] MEDS ORDERED: ASPIRIN 325 MG TAB ONE (11:36)
[2021-04-12] MEDS ORDERED: ALBUTEROL 2.5 MG/3 ML NEB SOL ONE (12:09)
[2021-04-12] MEDS ORDERED: METHYLPREDNISOLONE 40 MG INJ ONE (12:09)
--- NOTE | 2021-04-12 12:12 | P.CNS ---
Date of Consult: 04/12/21 Reason for Consult: ER evaluation for possible admission Requesting Physician: Luiz Wolf Primary Care Provider: none Chief Complaint: right sided chest pain History of Present Illness: 65 yo CF presented to the ER with right-sided chest pain. Patient reports that she was getting over a cold. She had been coughing lately. Then she started to have some right-sided chest pain. It was worse with cough and with lying down. She denied any fever, chills, nausea, vomiting. No radiation of pain noted. She denied any palpitations. She reports that she was actually seen at urgent care to rule out Covid. She came to the ER for further evaluation. In the ER patient was evaluated. Vital signs stable. CBC unremarkable. Troponin unremarkable. Sodium 146, potassium 3.7. BUN of 13, creatinine 0.7 with a GFR 75. Glucose 105. Chest x-ray unremarkable. CT chest showed no pulmonary embolism or pneumonia. T12 compression fracture noted. CT abdomen and pelvis showed no acute findings. No significant EKG changes noted. I was asked to evaluate patient in the ER for possible admission. Heart score2. Patient stable at this time. Pain improved. Patient with reproducible chest pain. Patient is a heavy smoker. She does not take any medications on a regular basis. Allergies hydrocodone Adverse Reaction (Verified 09/09/15 07:37) Itching No Known Allergies Allergy (Uncoded 12/12/15 01:41) Unknown Home medications list reviewed: Yes Home Medications: clonazePAM [Klonopin] 0.5 mg PO TIDP PRN 09/09/15 - Past Medical/Surgical History -: Tobacco abuse -: Kidney stones -: Vitamin B12 deficiency Past Surgical History: Reviewed- Non-Contributory Psychosocial/ Personal History: Patient is - Family History Father Family History: Reviewed- Non-Contributory - Social History Smoking Status: Unknown if ever smoked, Heavy Tobacco smoker (>10 cigarettes/day) Counseled patient to stop smoking for: less than 10 minutes Smoking therapy provided: Yes Patient receptive to therapy: Yes Alcohol use: No CD- Drugs: No Caffeine use: No Place of Residence: Home Review of Systems General: As per HPI Eyes: Unremarkable Respiratory: Cough, As per HPI Cardiovascular: Chest Pain, As per HPI Gastrointestinal: Unremarkable Genitourinary: Unremarkable Musculoskeletal: Unremarkable Integumentary: Unremarkable Neurological: Unremarkable Lymphatics: Unremarkable Physical Examination Laboratory Data (last 24 hrs) 04/12/21 08:27: PT 10.2, INR 0.89 04/12/21 08:27: WBC 6.30, Hgb 12.7, Hct 37.7, Plt Count 238 04/12/21 08:27: Sodium 146 H, Potassium 3.7, BUN 13, Creatinine 0.78, Glucose 105, Magnesium 2.4, Total Bilirubin 0.6, AST 12 L, ALT 20, Alkaline Phosphatase 93 Conclusions/Impression: COVID: Negative Influenza: Negative Chest x-ray: COMPARISON: December 2015 TECHNIQUE: AP portable chest image was obtained 04/12/2021 8:54 am . FINDINGS: Lungs are clear. Interstitial pattern matches comparison. Heart and vasculature are normal. No measurable pleural effusion and no pneumothorax. No acute bony abnormality seen. No acute aortic findings suspected. IMPRESSION: No acute cardiopulmonary process. No significant change from comparison study. CT chest: COMPARISON: Chest Single View dated 04/12/2021; Abdomen Pelvis W Contrast dated 04/12/2021 TECHNIQUE: Dynamically enhanced 3 mm thick images of the chest were obtained during administration of approximately 150mL Isovue 370 IV contrast. Coronal and oblique MIP reconstruction images were generated and reviewed. Exam utilizes a protocol to evaluate the pulmonary arterial tree. All CT scans are performed using dose optimization technique as appropriate and may include automated exposure control or mA/KV adjustment according to patient size. FINDINGS: No pulmonary emboli are identified. The aorta as imaged shows no acute or suspicious finding. No cardiomegaly, pericardial thickening or effusion. Rare aortic atherosclerotic calcifications are present with no measurable coronary artery calcifications. No infiltrate or mass in the lung parenchyma. No pleural effusion or pleural thickening. No mediastinal or hilar suspicious masses. No chest wall masses or abnormal axillary lymphadenopathy. Minimal thoracic spine degenerative change approximately 20% compression fracture deformity involves the T12 body. This is believed to be chronic. Posterior wall height is preserved and no acute fracture line is seen. IMPRESSION: No pulmonary emboli identified. No other significant or suspicious findings. CT abdomen/pelvis: COMPARISON: Chest For Pe Angio dated 04/12/2021; Stone Protocol dated 03/02/2018 TECHNIQUE: Biphasic, helical CT imaging of the abdomen and pelvis was performed following 100 ml non-ionic IV contrast. No oral contrast administered. All CT scans are performed using dose optimization technique as appropriate and may include automated exposure control or mA/KV adjustment according to patient size. FINDINGS: No suspicious findings in the lung bases. The liver, spleen, and pancreas show no suspicious findings. Gallbladder and biliary tree are also without suspicious finding. Symmetric renal function is seen with no hydronephrosis or suspicious renal mass. No pyelonephritis or acute parenchymal process. No bladder abnormalities. No adrenal abnormalities. A 5 millimeter nonobstructing calyx calculus is present mid left kidney enlarged from 2018 CT imaging. No ureteral calculi or bladder calculi seen. Multiple phleboliths are seen in the pelvic floor. Uterus is absent. Ovaries are absent or atrophic. No adnexal abnormality. No dilated bowel loops or bowel wall thickening. Prominent sigmoid diverticulosis is present without diverticulitis. No appendicitis present. No free air, free fluid or inflammatory stranding. No hernia, mass or bulky lymphadenopathy. Bony degenerative changes are present. There is 20% compression fracture deformity of the T12 body involving superior endplate. Posterior wall height is preserved. No acute fracture line or paraspinal abnormality seen. This is chronic. IMPRESSION: Contrast enhanced CT abdomen and pelvis showing no acute or emergent finding. Physical Exam: GENERAL: The patient is a well-developed, well-nourished, in no apparent distress. Alert and oriented x3. VITAL SIGNS: Reviewed HEENT: Head is normocephalic and atraumatic. Extraocular muscles are intact. Pupils are equal, round, and reactive to light and accommodation. Nares appeared normal. Mouth is well hydrated and without lesions. Mucous membranes are moist. NECK: Supple. No carotid bruits. No lymphadenopathy or thyromegaly. LUNGS: Slightly decreased. Minimal wheeze. HEART: Regular rate and rhythm, no appreciable gallops, rubs, murmurs or extra heart sounds. Reproducible chest pain to the right side with palpation. ABDOMEN: Soft, nontender, and nondistended. Positive bowel sounds. No hepatosplenomegaly was noted. EXTREMITIES: Without any cyanosis, clubbing, rash, lesions or peripheral edema. NEUROLOGIC: The patient is oriented to person, place and time. Strength and sensation are grossly intact. Face is symmetric. SKIN: Normal color, turgor and temperature. No ulcerations or rashes noted. Impression: Chest pain likely related to pleurisy with recent cold suspect bronchitis with underlying COPD 20% compression fracture to T12 Nonobstructive renal calculus5 mm to the mid left kidney Tobacco abuse Plan: Chest pain likely related to pleurisy with recent cold suspect bronchitis with underlying COPD: Patient evaluated in the emergency room. Patient had reproducible chest pain. Suspect pleurisy with recent cold. Possible bronchitis and underlying COPD. Heart score 2. No need for admission at this time. Recommend to recheck troponin. Recommend Solu-Medrol IV 40 mg along with albuterol treatment in the ER. If recheck troponin unremarkable patient can be discharged home from the ER. Recommend prednisone 10 mg 1 pill twice daily for 7 days and 1 pill once daily for 7 days. Recommend Advair 1 puff twice daily and albuterol 2 puffs 3 times a day as needed for shortness of breath. Patient would benefit with pulmonology evaluation as an outpatient to evaluate for underlying COPD. Patient may require pulmonary function test to further evaluate. If chest pain persists recommend to establish care with cardiology for further evaluation to include outpatient echocardiogram and cardiac stress test. Recommend follow-up with PCP within 1 week to follow-up ER visit. Case discussed in detail with physician school psychologist assistant. Patient and physician school psychologist assistant agreed with plan of care. 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 Suspect underlying osteoporosis. Patient would benefit further evaluation for osteoporosis with PCP. Patient may require DEXA scan as an outpatient. Patient may require medication in the future. Nonobstructive renal calculus5 mm to the mid left kidney: Recommend follow-up with urology as an outpatient to further evaluate as CT scan shows enlargement of stone since 2018. Tobacco abuse: Tobacco cessation addressed in detail. Time Spent Managing Pts care (In Minutes): 55
[2021-04-12 14:34] VITALS: BP 133/76; TEMP 97.9; O2SAT 100
== END 2021-04-12 14:13 | disposition home or self-care (01) ==
LOC: ER 08:02
DX: N39.0 Urinary tract infection, site not specified (principal); Z20.822 Contact with and (suspected) exposure to COVID-19
CPT/HCPCS: 96365; 93005; 87088; 85025; 87086; 80048; 36415; 83735; 85610; 80076; 84484 ×2; 83880; 0240U; 71275; 74177; 71045; 94640; 96375; 99285; 96366; Q9967; J7040; J2405; J2920; 81003; 81015

== ENCOUNTER 2021-12-09 23:23 | Emergency (ER) | payer BC ==
--- OUTSIDE RECORDS SUMMARY | 2021-12-09 23:28 | XMS REPORT | Continuity of Care Document ---
:1955 Author Organization [facility] t Address [address] [place] [address] Care Team Providers Name Role Phone FAN KAUFFMAN Primary Care Physician Unavailable FAN KAUFFMAN Attending Clinician Unavailable Fan Kauffman MD Attending Clinician JEFFRY HILL Attending Clinician Unavailable Dianna Morales MD Attending Clinician DIANNA MORALES Attending Clinician Unavailable Doctor Unassigned, Davy Attending Clinician Unavailable Room, Jose Angel Uro Procedure Attending Clinician Unavailable Tony PACRocky Attending Clinician King PACBladimirya S Attending Clinician TEJINDER ESPINO Attending Clinician Unavailable JAMIR MURGUIA Attending Clinician Unavailable Jamir Mugruia MD Attending Clinician DIANNA MORALES Admitting Clinician Unavailable Dianna Morales MD Admitting Clinician JAMIR MURGUIA Admitting Clinician Unavailable Payers Payer Name Policy Type Policy Number Effective Date Expiration Date S sarah [employer] [place] - [id number] 2017 2020 00:00:0 0 OUT OF STATE 00:00:00 Problems Condition Condition Condition Status Onset Resolution Last Treating Co mments Source Name Details Category Date Date Treatment Clinician Date Ureteral Ureteral Disease Active Unive rs stone stone 10-02 ity of 00:00: [address] Branch Urinary Urinary Disease Active Overview: Univ ers tract tract 10-01 Added ity of infection infection 00:00: automatic [place] without without 00 ally from Medic al hematuria, hematuria, request B [place] site site for unspecifie unspecifie surgery d d [id number] Bronchitis Bronchitis Disease Active 2016-05 U nivers 2-17 ity of 00:00: [place] 00 Medical Branch Depression Depression Disease Active 2014-05 U nivers 0-27 ity of 00:00: [place] 00 Medical Branch 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 U nivers e migraine e migraine 0- it y of with aura with aura 00:[place] without without 00 Medical status status Branch migrainosu migrainosu s s Irritable Irritable Disease Active 2014-05 Uni vers bowel bowel 0- ity of syndrome syndrome 00:00: [place] with with 00 Medical diarrhea diarrhea Branch Allergies, Adverse Reactions, Alerts Allergy Allergy Status Severity Reaction(s) Onset Inactive Treating Comm ents Source Name Type Date Date Clinician CLINDAMY DRUG Active Swelling 2019-0 Univer s RUBY INGREDI 09-30 ity of 00:00: [place] 00 [facility] [place] Clindamy Propensi Active Swelling 2019-0 Univ ers ruby ty to 09-30 ity of adverse 00:00: [place] reaction 00 Medical s Branch NO KNOWN Drug Active Univers ALLERGIE Class ity of S [facility] Social History Social Habit Start Date Stop Date Quantity Comments Source History of Cigarette Smoker Universi ty of tobacco use [facility] Sex Assigned At Universit y of [facility] Exposure to Not sure [place] of SARS-CoV-2 [facility] (event) Branch Tobacco use and 2019-11-22 2019-11-22 Never used Universit y of exposure 00:00:00 00:00:00 [facility] Cigarettes smoked 2019-11-22 2019-11-22 Univers ity of current (pack per 00:00:00 00:00:00 [facility]) - Reported Branch Cigarette 2019-11-22 2019-11-22 University of pack-years 00:00:00 00:00:00 [facility] Alcohol intake 2019-11-22 2019-11-22 Current drinker of Un iversity of 00:00:00 00:00:00 alcohol (finding) [facility] Tobacco Comment 2017-01-11 2017-01-11 0.5 pack weekly Univ ersity of 00:00:00 00:00:00 [facility] Alcohol Comment 2015-02-25 2015-02-25 occationally Univers ity of 00:00:00 00:00:00 [facility] Smoking Status Start Date Stop Date Source Current every day smoker 2019-11-22 00:00:00 [facility] versity of [facility] Medications Ordered Filled Start Stop Current Ordering Indication Dosage Frequency Signature Comments Components Source Medication Medication Date Date Medication? Clinician (SIG) Name Name willianiptan 2019-05 2020- No [id number] 40mg Take 1 Univers 40 mg 1-20 11-21 tablet by ity of tablet 00:00: 05:59 mouth [place] 00 :00 now for 1 Medical dose. May Branch repeat in 2 hours if necessary tamsulosin 2020-0 Yes [id number] .4mg Take 1 U nivers 0.4 mg 24 6-04 capsule by ity of hr capsule 00:00: mouth [place] 00 daily. Medical Branch tamsulosin 2020-0 Yes [id number] .4mg Take 1 U nivers 0.4 mg 24 6-04 capsule by ity of hr capsule 00:00: mouth [place] 00 daily. Medical Branch tamsulosin 2020-0 Yes [id number] .4mg Take 1 U nivers 0.4 mg 24 6-04 capsule by ity of hr capsule 00:00: mouth [place] 00 daily. Medical Branch tamsulosin 2020-0 Yes [id number] .4mg Take 1 U nivers 0.4 mg 24 6-04 capsule by ity of hr capsule 00:00: mouth [place] 00 daily. Medical Branch tamsulosin 2020-0 Yes [id number] .4mg Take 1 U nivers 0.4 mg 24 6-04 capsule by ity of hr capsule 00:00: mouth [place] 00 daily. Medical Branch tamsulosin 2020-0 Yes [id number] .4mg Take 1 U nivers 0.4 mg 24 6-04 capsule by ity of hr capsule 00:00: mouth [place] 00 daily. Medical Branch tamsulosin 2020-0 Yes [id number] .4mg Take 1 U nivers 0.4 mg 24 6-04 capsule by ity of hr capsule 00:00: mouth [place] 00 daily. Medical Branch tamsulosin 2020-0 Yes [id number] .4mg Take 1 U nivers 0.4 mg 24 6-04 capsule by ity of hr capsule 00:00: mouth [place] 00 daily. Medical Branch tamsulosin 2020-0 Yes [id number] .4mg Take 1 U nivers 0.4 mg [...] Until Discontinu ed, Routine, PACU FENTanyl PF 2020-0 2020- No 25ug 25 mcg, Un rickey (SUBLIMAZE 10-02 06-03 Slow IV ity o f (PF)) 17:44: 18:15 Push, [place] injection 50 :00 Q5MIN PRN, Medi slo[place] 25 mcg 4 doses, Branch Starting Tue10/03/19 at 1244, Until Discontinu ed, Routine, Pain (scale 4-6), PACU acetaminoph 2020-0 2020- No 1{tbl} Take 1 U nivers en-codeine 10-02-03 tablet by ity of (TYLENOL-CO 17:31: 00:00 mouth [place] DEINE #3) 33 :00 every 4 Medical 300-30 mg (four) Branch tablet hours as needed. tamsulosin 2020-0 Yes .4mg 0.4 mg, Univ ers (FLOMAX) 6 Oral, ity of capsule 0.4 14:00: DAILY, [place] mg 00 First dose Medical on Tue Branch 10/03/19 at 0900, Until Discontinu ed, Routine gabapentin 2020-0 Yes 300mg 300 mg, Uni vers (NEURONTIN) -03 Oral, TID, it y of capsule 300 13:00: First dose [place] mg 00 on Tue Medical 10/03/19 at Branch 0800, Until Discontinu ed, Routine acetaminoph 2020-0 Yes 650mg 650 mg, Un rickey en -03 Oral, Q6H, ity of (TYLENOL) 11:00: First [...] 24 Q8HPRN, 3 Medical doses, Branch Starting 10/03/19 at 0112, Until Discontinu ed, Routine, Pain (scale 7-10)
F aculty member approving Restricted medication : DIANNA MROALES cefTRIAXone 2019- 2020- No 1000mg 1,000 mg, Univers (ROCEPHIN) 10-02 IV ity of 1,000 mg in 04:30: 03:58 Piggyback, [place] NaCl 0.9% 00 :00 ONCE, 1 Medical [...] mg 00 :00 ONCE, 1 Medical dose, Tue Branch 10/02/19 at 2330, IAM
Fa culty member approving Restricted medication : GIANNA KING S morpHINE 2019- No 4mg 4 mg, Slow Un rickey injection 4 10-02 IV Push, ity of mg 04:15: 03:06 ONCE, 1 [place] 00 :00 dose, [facility] Medical 10/02/19 at Branch 2315, STAT NaCl 0.9% 2020- No 1000mL at 999 Uni vers (NS) bolus 10-0203 mL/hr, ity of infusion 01:30: 01:33 1,000 [...] Branch injection 2045, 120 mL Routine gabapentin 2020-0 Yes [id number] 300mg Take 1 Univers 300 mg 6-03 capsule by ity of capsule 00:00: mouth (three) Medical times Branch daily. ketorolac 2020-0 Yes [id number] 10mg Take 1 Un rickey 10 mg 6-03 tablet by ity of tablet 00:00: mouth [place] 00 every 8 Medical (eight) Branch hours as needed for Pain (scale 7-10). gabapentin 2020-0 Yes [id number] 300mg Take 1 Univers 300 mg 6-03 capsule by ity of capsule 00:00: mouth 3 (three) Medical times Branch daily. ketorolac 2020-0 Yes [id number] 10mg Take 1 Un rickey 10 mg 6-03 tablet by ity of tablet 00:00: mouth [place] 00 every 8 Medical (eight) Branch hours as needed for Pain (scale 7-10). gabapentin 2020-0 Yes [id number] 300mg Take 1 Univers 300 mg 6-03 capsule by ity of capsule 00:00: mouth (three) Medical times Branch daily. ketorolac 2020-0 Yes [id number] 10mg Take 1 Un rickey 10 mg 6-03 tablet by ity of tablet 00:00: mouth [place] 00 every 8 Medical (eight) Branch hours as needed for Pain (scale 7-10). gabapentin 2020-0 Yes [id number] 300mg Take 1 Univers 300 mg 6-03 capsule by ity of capsule 00:00: mouth (three) Medical times Branch daily. ketorolac 2020-0 Yes [id number] 10mg Take 1 Un rickey 10 mg 6-03 tablet by ity of tablet 00:00: mouth [place] 00 every 8 Medical (eight) Branch hours as needed for Pain (scale 7-10). gabapentin 2020-0 Yes [id number] 300mg Take 1 Univers 300 mg 6-03 capsule by ity of capsule 00:00: mouth (three) Medical times Branch daily. ketorolac 2020-0 Yes [id number] 10mg Take 1 Un rickey 10 mg 6-03 tablet by ity of tablet 00:00: mouth [place] 00 every 8 Medical (eight) Branch hours as needed for Pain (scale 7-10). gabapentin 2020-0 Yes [id number] 300mg Take 1 Univers 300 mg 6-03 capsule by ity of capsule 00:00: mouth 3 00 (three) Medical times Branch daily. ketorolac 2020-0 Yes [id number] 10mg Take 1 Un rickey 10 mg 6-03 tablet by ity of tablet 00:00: mouth [place] 00 every 8 Medical (eight) Branch hours as needed for Pain (scale 7-10). gabapentin 2020-0 Yes [id number] 300mg Take 1 Univers 300 mg 6-03 capsule by ity of capsule 00:00: mouth 3 [place] 00 (three) Medical times Branch daily. ketorolac 2020-0 Yes [id number] 10mg Take 1 Un rickey 10 mg 6-03 tablet by ity of tablet 00:00: mouth [place] 00 every 8 Medical (eight) Branch hours as needed for Pain (scale 7-10). gabapentin 2020-0 Yes [id number] 300mg Take 1 Univers 300 mg 6-03 capsule by ity of capsule 00:00: mouth 3 00 (three) Medical times Branch daily. ketorolac 2020-0 Yes [id number] 10mg Take 1 Un rickey 10 mg 6-03 tablet by ity of tablet 00:00: mouth [place] 00 every 8 Medical (eight) Branch hours as needed for Pain (scale 7-10). gabapentin 2020-0 Yes [id number] 300mg Take 1 Univers 300 mg 6-03 capsule by ity of capsule 00:00: mouth 3 (three) Medical times Branch daily. ketorolac 2020-0 Yes [id number] 10mg Take 1 Un rickey 10 mg 6-03 tablet by ity of tablet 00:00: mouth [place] 00 every 8 Medical (eight) Branch hours as needed for Pain (scale 7-10). acetaminoph 2020-0 2021- No [id number] 650mg Take 2 Univers en 325 mg 6-03 06-04 tablets by ity of tablet 00:00: 04:59 mouth [place] 00 :00 every 6 Medical (six) Branch hours. acetaminoph 2020-0 2021- No [id number] 650mg Take 2 Univers en 325 mg 6-03 06-04 tablets by ity of tablet 00:00: 04:59 mouth [place] 00 :00 every 6 Medical (six) Branch hours. acetaminoph 2020-0 2021- No [id number] 650mg Take 2 Univers en 325 mg 6-03 06-04 tablets by ity of tablet 00:00: 04:59 mouth [place] 00 :00 every 6 Medical (six) Branch hours. acetaminoph 2020- No [id number] 650mg Take 2 Univers en 325 mg 6-03 06-04 tablets by ity of tablet 00:00: 04:59 mouth [place] 00 :00 every 6 Medical (six) Branch hours. acetaminoph 2020- No [id number] 650mg Take 2 Univers en 325 mg 6-03 06-04 tablets by ity of tablet 00:00: 04:59 mouth [place] 00 :00 every 6 Medical (six) Branch hours. acetaminoph 2020- No [id number] 650mg Take 2 Univers en 325 mg 6-03 06-04 tablets by ity of tablet 00:00: 04:59 mouth [place] 00 :00 every 6 Medical (six) Branch hours. acetaminoph 2020- No [id number] 650mg Take 2 Univers en 325 mg 6- 06-04 tablets by ity of tablet 00:00: 04:59 mouth [place] 00 :00 every 6 Medical (six) Branch hours. acetaminoph 2020- No [id number] 650mg Take 2 Univers en 325 mg 6- 06-04 tablets by ity of tablet 00:00: 04:59 mouth [place] 00 :00 every 6 Medical (six) Branch hours. acetaminoph 2020- No [id number] 650mg Take 2 Univers en 325 mg 6-03 06-04 tablets by ity of tablet 00:00: 04:59 mouth [place] 00 :00 every 6 Medical (six) Branch hours. ondansetron 2019- No 4mg 4 mg, Slow Univers (ZOFRAN 10-01 IV Push, ity of (PF)) 23:00: 22:05 ONCE, 1 [place] injection 4 00 :00 dose, Tue Med ical mg /20 at Branch 1800, IAM proMETHazin 2019-0 Yes [id number] 25mg Insert 1 Univers e 10-01 Suppositor ity of (PHENERGAN) 00:00: y into [place] 25 mg 00 rectum Medical suppository every 6 Branc h (six) hours as needed for Nausea and Vomiting (N/V) or N/V unresponsi ve to Ondansetro n. proMETHazin 2020-0 Yes [id number] 25mg Insert 1 Univers e 6-02 Suppositor ity of (PHENERGAN) 00:00: y into [place] 25 mg 00 rectum Medical suppository every 6 Branc h (six) hours as needed for Nausea and Vomiting (N/V) or N/V unresponsi ve to Ondansetro n. proMETHazin 2020-0 Yes [id number] 25mg Insert 1 Univers e 6-02 Suppositor ity of (PHENERGAN) 00:00: y into [place] 25 mg 00 rectum Medical suppository every 6 Branc h (six) hours as needed for Nausea and Vomiting (N/V) or N/V unresponsi ve to Ondansetro n. proMETHazin 2020-0 Yes [id number] 25mg Insert 1 Univers e 6- Suppositor ity of (PHENERGAN) 00:00: y into [place] 25 mg 00 rectum Medical suppository every 6 Branc h (six) hours as needed for Nausea and Vomiting (N/V) or N/V unresponsi ve to Ondansetro n. proMETHazin 2020-0 Yes [id number] 25mg Insert 1 Univers e 6- Suppositor ity of (PHENERGAN) 00:00: y into [place] 25 mg 00 rectum Medical suppository every 6 Branc h (six) hours as needed for Nausea and Vomiting (N/V) or N/V unresponsi ve to Ondansetro n. proMETHazin 2020-0 Yes [id number] 25mg Insert 1 Univers e 6- Suppositor ity of (PHENERGAN) 00:00: y into [place] 25 mg 00 rectum Medical suppository every 6 Branc h (six) hours as needed for Nausea and Vomiting (N/V) or N/V unresponsi ve to Ondansetro n. proMETHazin 2020-0 Yes [id number] 25mg Insert 1 Univers e 6-02 Suppositor ity of (PHENERGAN) 00:00: y into [place] 25 mg 00 rectum Medical suppository every 6 Branc h (six) hours as needed for Nausea and Vomiting (N/V) or N/V unresponsi ve to Ondansetro n. proMETHazin 2020-0 Yes [id number] 25mg Insert 1 Univers e 6-02 Suppositor ity of (PHENERGAN) 00:00: y into [place] 25 mg 00 rectum Medical suppository every 6 Branc h (six) hours as needed for Nausea and Vomiting (N/V) or N/V unresponsi ve to Ondansetro n. proMETHazin 2020-0 Yes [id number] 25mg Insert 1 Univers e 6-02 Suppositor ity of (PHENERGAN) 00:00: y into [place] 25 mg 00 rectum Medical suppository every 6 Branc h (six) hours as needed for Nausea and Vomiting (N/V) or N/V unresponsi ve to Ondansetro n. ciprofloxac 2019-0 2020- No [id number] 500mg Take 1 Univers in HCl 500 10-0103 tablet by ity of mg tablet 00:00: 00:00 mouth [place] 00 :00 every 12 Medical (twelve) Branch hours for 5 days. ondansetron 2020-0 Yes [id number] 8mg Take 1 Univers (ZOFRAN 6-01 tablet by ity of ODT) 8 mg 00:00: mouth [place] disintegrat 00 every 8 Medic al ing tablet (eight) Branch hours as needed for Nausea and Vomiting (N/V). ondansetron 2020-0 Yes [id number] 8mg Take 1 Univers (ZOFRAN 6-01 tablet by ity of ODT) 8 mg 00:00: mouth [place] disintegrat 00 every 8 Medic al ing tablet (eight) Branch hours as needed for Nausea and Vomiting (N/V). ondansetron 2020-0 Yes [id number] 8mg Take 1 Univers (ZOFRAN 6-01 tablet by ity of ODT) 8 mg 00:00: mouth [place] disintegrat 00 every 8 Medic al ing tablet (eight) Branch hours as needed for Nausea and Vomiting (N/V). ondansetron 2020-0 Yes [id number] 8mg Take 1 Univers (ZOFRAN 6-01 tablet by ity of ODT) 8 mg 00:00: mouth [place] disintegrat 00 every 8 Medic al ing tablet (eight) Branch hours as needed for Nausea and Vomiting (N/V). ondansetron 2020-0 Yes [id number] 8mg Take 1 Univers (ZOFRAN 6-01 tablet by ity of ODT) 8 mg 00:00: mouth [place] disintegrat 00 every 8 Medic al ing tablet (eight) Branch hours as needed for Nausea and Vomiting (N/V). ondansetron 2020-0 Yes [id number] 8mg Take 1 Univers (ZOFRAN 6-01 tablet by ity of ODT) 8 mg 00:00: mouth [place] disintegrat 00 every 8 Medic al ing tablet (eight) Branch hours as needed for Nausea and Vomiting (N/V). ondansetron 2020-0 Yes [id number] 8mg Take 1 Univers (ZOFRAN 6-01 tablet by ity of ODT) 8 mg 00:00: mouth [place] disintegrat 00 every 8 Medic al ing tablet (eight) Branch hours as needed for Nausea and Vomiting (N/V). ondansetron 2020-0 Yes [id number] 8mg Take 1 Univers (ZOFRAN 6-01 tablet by ity of ODT) 8 mg 00:00: mouth [place] disintegrat 00 every 8 Medic al ing tablet (eight) Branch hours as needed for Nausea and Vomiting (N/V). ondansetron 2020-0 Yes [id number] 8mg Take 1 Univers (ZOFRAN 6-01 tablet by ity of ODT) 8 mg 00:00: mouth [place] disintegrat 00 every 8 Medic al ing tablet (eight) Branch hours as needed for Nausea and Vomiting (N/V). ketorolac 2019-0 2020- No 30mg 30 mg, Unive rs (TORADOL) 07-26 Slow IV ity of injection 07:15: 06:13 Push, [place] 30 mg 00 :00 ONCE, 1 Medical dose, Fri Branch 07/27/19 at 0215, Routine
in flight crew member approving Restricted medication : JAMIR MURGUIA HYDROcodone 2020-0 2020- No 1{tbl} 1 tablet, Univers -acetaminop 07-26 Oral, ONCE i ty of hen (NORCO) 07:15: 06:12 NOW, 1 Jose Nagel as 10-325 mg 00 :00 dose, Fri Medic al tablet 1 07/27/19 at [facility] tablet 0215, Routine iohexol 2019-0 2020- No 120mL 120 mL, Unive rs (OMNIPAQUE 07-26 Intravenou it y of 350 05:30: 05:11 s, ONCE, 1 [place] BULK-150 00 :00 dose, Fri Medica l mL) 07/27/19 at Branch injection 0030, 120 mL Routine FENTanyl PF 2020-0 2020- No 25ug 25 mcg, Un rickey (SUBLIMAZE 07-26-27 Slow IV ity o f (PF)) 04:15: [...] Medical times Branch daily. ciprofloxac 2020-0 Yes [id number] 250mg Take 1 Univers in HCl 3-24 tablet by ity of (CIPRO) 250 00:00: mouth [place] mg tablet 00 every 12 Medica l (twelve) Branch hours. ciprofloxac 2020-0 Yes [id number] 250mg Take 1 Univers in HCl 3-24 tablet by ity of (CIPRO) 250 00:00: mouth [place] mg tablet 00 every 12 Medica l (twelve) Branch hours. ciprofloxac 2020-0 2020- No [id number] 250mg Take 1 Univers in HCl 3-24 [...] needed. MIRTAZAPINE 2020-0 2020- No Take by Un rickey ORAL 1-14 01-14 mouth. ity of 22:33: 00:00 [place] 15 :00 Medical Branch MIRTAZAPINE 2020-0 2020- No Take by Un rickey ORAL 1-14 01-14 mouth. ity of 22:33: 00:00 [place] 15 :00 Medical Branch clonazePAM 2020-0 2020- No [id number] .5mg Take 0.5 Univers (KLONOPIN) 1-14 01-14 mg by ity of 0.5 mg 22:32: 00:00 mouth as [place] tablet 53 :00 needed Medical (panic). Branch clonazePAM 2020-0 2020- No [id number] .5mg Take 0.5 Univers (KLONOPIN) 1-14 01-14 mg by ity of 0.5 mg 22:32: 00:00 mouth as [place] tablet 53 :00 needed Medical (panic). Branch naproxen 2018-05- No [id number] 500mg Take 1 Univers (NAPROSYN) 0-29 05- 9102 tablet by ity of 500 mg 00:00: 00:00 mouth 2 [place] tablet 00 :00 (two) Medical times Branch daily with meals. naproxen 2018-05- No [id number] 500mg Take 1 Univers (NAPROSYN) 0-29 05- 9102 tablet by ity of 500 mg 00:00: 00:00 mouth 2 [place] tablet 00 :00 (two) Medical times Branch daily with meals. methylPREDN 2018-05- No [id number] 84mg Take 21 Univers ISolone 0-26 05- 9102 tablets by ity o f (MEDROL, 00:00: 00:00 mouth [place] LORENA,) 4 mg 00 :00 SEE-INSTRU Med ical tablets CTIONS. Branch follow package directions methylPREDN 2018-05- No [id number] 84mg Take 21 Univers ISolone 0-05-15 9102 tablets by ity o f (MEDROL, 00:00: 00:00 mouth [place] LORENA,) 4 mg 00 :00 SEE-INSTRU Med ical tablets CTIONS. Branch follow package directions venlafaxine 2018-0 Yes 150mg Take 150 U [...] (three) Medical capsule times Branch daily. venlafaxine 2019-0 Yes 150mg Take 150 U nivers XR (EFFEXOR 9-25 mg by ity of XR) 150 mg 19:49: mouth 3 [place] 24 hr 40 (three) Medical capsule times Branch daily. HYDROcodone 2020- No [id number] 1{tbl} Take 1 Univers -acetaminop 01-24 tablet by it y of hen (NORCO) 00:00: 00:00 mouth [place] 10-325 mg 00 :00 every 6 Medical tablet (six) Branch hours as needed (pain). etodolac 2019- No [id number] 400mg Take 1 Univers 400 mg 01-24 tablet by ity of tablet 00:00: 00:00 mouth 2 [place] 00 :00 (two) Medical times Branch daily. HYDROcodone 2019- No [id number] 1{tbl} Take 1 Univers -acetaminop 01-24 tablet by it y of hen (NORCO) 00:00: 00:00 mouth [place] 10-325 mg 00 :00 every 6 Medical tablet (six) Branch hours as needed (pain). etodolac 2019- No [id number] 400mg Take 1 Univers 400 mg 01-24 [...] Immunizations Ordered Filled Immunization Date Status Comments [facility] e Immunization Name Name Influenza Virus 2019-01-24 Completed Universit y of Vaccine Quad .5 mL 00:00:00 [place] Medical IM 6+ MO Branch Influenza Virus [...] y of Vaccine Quad .5 mL 00:00:00 [place] Medical IM 6+ MO Branch Influenza Virus [...] Universit y of Vaccine Quad ID 00:00:00 [place] Med ical 18-64 YRS Branch Vital Signs Vital Name Observation Time Observation Value Comments Source Systolic blood 2019-11-22 20:14:00 138 mm[Hg] Univer sity of pressure [facility] Diastolic blood 2019-11-22 20:14:00 89 mm[Hg] Unive rsity of pressure [facility] Heart rate 2019-11-22 20:14:00 79 /min Universi ty of [facility] Respiratory rate 2019-11-22 20:14:00 18 /min [facility] Body height 2019-11-22 20:14:00 175.3 cm Universi ty [facility] Body weight 2019-11-22 20:14:00 [facility] BMI 2019-11-22 20:14:00 24.47 kg/m2 Universi [facility] Systolic blood 2019-10-03 18:29:00 129 mm[Hg] Univer sity of pressure [facility] Diastolic blood 2019-10-03 18:29:00 91 mm[Hg] Unive rsity of pressure [facility] Heart rate 2019-10-03 18:29:00 82 /min Universi ty of [facility] Respiratory rate 2019-10-03 18:29:00 16 /min [facility] Oxygen saturation in 2019-10-03 18:29:00 98 /min [facility] blood by [facility] Pulse oximetry Branch Body temperature 2019-10-03 17:42:00 36 Louise [facility] Body height 2019-10-02 21:38:00 175.3 cm Universi ty [facility] [place] Body weight 2019-10-02 21:38:00 68.493 kg Universi ty of [place] [facility] BMI 2019-10-02 21:38:00 22.30 kg/m2 Universi ty of [place] [facility] Systolic blood 2019-07-27 06:00:00 147 mm[Hg] Univer sity of pressure [facility] Diastolic blood 2019-07-27 06:00:00 101 mm[Hg] Unive rsity of pressure [place] [facility] Heart rate 2019-07-27 06:00:00 65 /min Universi ty of [place] [facility] Respiratory rate 2019-07-27 06:00:00 24 /min Univ ersity of [facility] Oxygen saturation in 2019-07-27 06:00:00 98 /min [facility] Arterial blood by [facility] Pulse oximetry Branch Body temperature 2019-07-27 02:51:00 36 Louise [facility] ersity of [place] [facility] [place] Body height 2019-07-27 02:51:00 172.7 cm Universi ty of [place] [facility] [place] Body weight 2019-07-27 02:51:00 68.04 kg Universi ty of [place] [facility] BMI 2019-07-27 02:51:00 22.81 kg/m2 Universi ty of [place] [facility] Systolic blood 2019-05-15 22:22:00 126 mm[Hg] Univer sity of pressure [facility] Branch Diastolic blood 2019-05-15 22:22:00 78 mm[Hg] Unive rsity of pressure [facility] Heart rate 2019-05-15 22:22:00 63 /min Universi ty of [facility] Body temperature 2019-05-15 22:22:00 36.06 Louise [facility] ersity of [place] [facility] [place] Body height 2019-05-15 22:22:00 172.7 cm Universi ty of [place] [facility] Body weight 2019-05-15 22:22:00 76.658 kg Universi ty of [place] [facility] BMI 2019-05-15 22:22:00 25.70 kg/m2 Universi ty of [place] [facility] Procedures Procedure Date / Time Performing Clinician Source Performed US RETROPERITONEAL 2019-12-11 18:47:09 Dianna Morales [facility] COMPLETE Medical Branch ASSIGNMENT OF BENEFITS 2019-12-11 18:05:01 Doctor Unassigned, Un [facility] DISCLOSURE AND CONSENT, 2019-11-22 05:01:00 Doctor Unassigned, U [facility] MEDICAL AND SURGICAL [facility] PROCEDURES BASIC METABOLIC PANEL (NA, 2019-10-03 10:56:00 Tray Foreman U [facility] K, CL, CO2, GLUCOSE, BUN, Medica l Branch CREATININE, CA) CT ABDOMEN PELVIS W 2019-10-03 01:30:38 Gianna King [facility] CONTRAST Medical Branch XR CHEST 1 VW 2019-10-02 22:29:05 Tony [facility] LIPASE 2019-10-02 22:04:00 Tony [facility] MAGNESIUM 2019-10-02 22:04:00 Tony [facility] TROPONIN I 2019-10-02 22:04:00 Tony [facility] COMP. METABOLIC PANEL 2019-10-02 22:04:00 Tony [facility] ([id number]) [facility] CBC WITH DIFFERENTIAL 2019-10-02 22:04:00 Tony [facility] URINALYSIS 2019-10-02 22:04:00 [facility] NOTICE OF PRIVACY 2019-10-02 21:08:54 Doctor Unassigned, [facility] Name Medical [place] TROPONIN I 2019-07-27 03:18:00 Jamir Murguia [facility] COMP. METABOLIC PANEL 2019-07-27 03:18:00 Jamir Murguia [facility] ([id number]) [facility] CBC WITH DIFFERENTIAL 2019-07-27 03:18:00 Jamir Murguia [facility] PROTHROMBIN TIME / INR 2019-07-27 03:18:00 Jamir [facility] EKG-12 LEAD 2019-07-27 03:05:07 Jamir Murguia [facility] NOTICE OF PRIVACY 2019-07-27 02:45:41 Doctor Unassigned, [facility] Davy Medical Branch CONSENT/REFUSAL FOR 2019-07-27 02:45:26 Doctor Unassigned, Tony [facility] DIAGNOSIS AND TREATMENT Davy Medical Branch Encounters Start End Encounter Admission Attending Care Care Encounter Source Date/Time Date/Time Type Type Clinicians Facility Department ID 2020-05-20 2020-05-20 Outpatient R DALY [facility] [id number] Univers 13:45:00 13:45:00 FAN [id number] ity [facility] 2020-05-20 2020-05-20 [facility] [id number] Univers 13:45:00 13:45:00 FAN ity [facility] 2020-03-21 2020-03-21 [facility] [id number] Univers 00:00:00 00:00:00 [facility] [id number] it y of [place] 4.2.7.2.686 Jose Angel as [facility] [id number] [place] [facility] 044 [place] Office [facility] One 2020-02-25 2020-02-25 Outpatient SERGIO [facility] [id number] Univers 13:00:00 13:00:00 JEFFRY [id number] ity [facility] 2020-02-25 2020-02-25 [facility] [id number] Univers 13:00:00 13:00:00 JEFFRY ity [facility] 2020-02-11 2020-02-11 Outpatient R [facility] [id number] Univers 14:15:00 14:15:00 [id number] ity of [facility] 2020-02-11 2020-02-11 Outpatient R [facility] [id number] Univers 14:15:00 14:15:00 ity of [facility] 2019-12-11 2019-12-11 [facility] [id number] Univers 13:06:41 23:59:00 Encounter Dianna [place] 350.1.13.10 it[place] [phone] [facility] 806 [place] 2019-12-11 2019-12-11 [facility] [id number] Univers 13:30:00 13:30:00 BILAL [id number] ity of [facility] 2019-12-11 2019-12-11 [facility] [id number] Univers 00:00:00 00:00:00 BILAL ity of [facility] 2019-12-11 2019-12-11 Orders Doctor VALENZUELA [id number] Univers 00:00:00 00:00:00 Only Unassigned, LIYAH 350.1.13.10 ity of Davy [facility] 4.2.7.2.686 Jose Angel as [id number] [facility] 009 Branch 2019-11-22 2019-11-22 Office Andrew [facility] 1.2.840.114 [id number] Univers 13:55:45 16:12:18 Visit Room, [facility] Procedure HEALTH 350.1. 13.10 ity of [place] 4.2.7.2.686 [facility] [id number] [facility] Primary & 204 Branch Specialty Care 2019-11-22 2019-11-22 Outpatient Blake [facility] [id number] Univers 14:30:00 14:30:00 BILAL [id number] ity of [facility] 2019-11-22 2019-11-22 Outpatient [facility] [id number] Univers 14:30:00 14:30:00 BILAL ity of [facility] 2019-11-22 2019-11-22 Orders Doctor VALENZUELA 1.2.840.114 [id number] Univers 00:00:00 00:00:00 Only Unassigned, LIYAH 350.1.13.10 ity of [facility] 4.2.7.2.686 Jose Angel as [id number] [facility] 009 Branch 2019-10-30 2019-10-30 Outpatient Blake [facility] [id number] Univers 10:30:00 10:30:00 BILAL ity of [facility] 2019-10-30 2019-10-30 Outpatient R [facility] [id number] Univers 10:30:00 10:30:00 BILAL ity of [facility] 2019-10-30 2019-10-30 Telephone [facility] [id number] Univers 00:00:00 00:00:00 [facility] 350.1.13.10 it y of [place] 4.2.7.2.686 [facility] [id number] [facility] Primary & 204 Branch Specialty Care 2019-10-04 2019-10-04 Telephone [facility] 1.2.840.114 [id number] Univers 00:00:00 00:00:00 [facility] 350.1.13.10 it y of [place] 4.2.7.2.686 [facility] [phone] [place] dical [facility] 044 Branch Office Building One 2019-10-02 2019-10-03 Outpatient X [facility] SUU [id number] Univers 16:24:24 14:59:00 [facility] ity [facility] 2019-10-02 2019-10-03 Emergency TonyRocky irahetae 1.2.840. 114 [id number] Univers 16:24:24 14:59:00 Gianna King 350.1.13.10 ity [address] [facility] [address] [place] [address] [id number] [facility] 091 Branch 2019-10-01 2019-10-01 Outpatient R [facility] [id number] Univers 11:20:00 11:20:00 [id number] ity of [facility] 2019-10-01 2019-10-01 Outpatient R [facility] [id number] Univers 11:20:00 11:20:00 TEJINDER ity [facility] 2019-07-26 2019-07-27 [facility] [id number] Univers 21:46:01 01:27:00 WAKILI ity [facility] 2019-07-26 2019-07-27 Emergency [facility] [id number] Univers 21:46:01 01:27:00 Jamir [place] 350.1.13.10 ity of [place] 4.2.7.2.686 [facility] [id number] [facility] 084 Branch 2019-07-24 2019-07-24 Outpatient R [facility] [id number] Univers 11:15:00 11:15:00 FAN [id number] [facility] 2019-07-24 2019-07-24 Outpatient Blake KAUFFMAN [facility] [id number] Univers 11:15:00 11:15:00 [facility] 2019-07-24 2019-07-24 [facility] 1.2.840.114 [id number] Univers 08:15:25 08:30:25 ne Visit [facility] 350.1.13.10 i ty of [place] 4.2.7.2.686 Jose Angel as Professio [phone] Nc dical nal 044 [place] Office [facility] 2019-07-23 2019-07-23 Telephone [facility] 1.2.840.114 [id number] Univers 00:00:00 00:00:00 [facility] 350.1.13.10 it y of [place] 4.2.7.2.686 Jose Angel as Professio [id number] Nc dical nal 044 [place] Office [facility] 2019-06-26 2019-06-26 Outpatient Blake KAUFFMAN [facility] [id number] Univers 14:15:00 14:15:00 FAN [id number] [facility] 2019-06-26 2019-06-26 Outpatient Blake KAUFFMAN [facility] [id number] Univers 14:15:00 14:15:00 [facility] 2019-05-15 2019-05-15 Office [facility] 1.2.840.114 [id number] Univers 16:19:35 16:43:39 Visit [facility] 350.1.13.10 it y of [place] 4.2.7.2.686 Jose Angel as Professio [phone] Nc dical nal 044 [place] Office [facility] One Results Test Description Test Test Results Result Source Time Comments Comments US RETROPERITONEAL 2019-12- HISTORY: History of [facility] of COMPLETE 11 right-sided kidney [facility] 18:55:51 stone and S/P stone Branc h [...] October 2019 did not show any left kidneystone.[facility], Radiant Results Inft User - 12/11/2019 1:56 [...] Interpretation Comme nts NA (test code = 5437632610) 143 mmol/L 135-145 K (test code = 4714527217) 3.5 mmol/L 3.5-5 CL (test code = 9156159369) 114 mmol/L 98-108 H CO2 TOTAL (test code = 5916870904) 20 mmol/L 23-31 L AGAP (test code = 3280757265) 2-16 BUN (test code = 8322982033) 17 mg/dL 7-23 GLUCOSE (test code = 7819783298) 81 mg/dL 70-110 CREATININE (test code = 0.74 mg/dL 0.5-1.04 8282472588) CALCIUM (test code = 2094991766) 8.6 mg/dL 8.6-10.6 eGFR Calculation (Non- mL/min/1.73m2 Lebanese) (test code = 5471914079) eGFR Calculation ( mL/min/1.73m2 Lebanese) (test code = 7273296500) ISI (test code = ISI) Association of [...] tests). Lab Interpretation (test code = Abnormal 15331-8) [facility] [id number] 02:16:24Impression: 1. ?A 0.4 cm obstructing stone is seen in the right proximal ureter withright-sided hydronephrosis and hydroureter. 2. ?Mural thickening of the urinary bladder is concerning for cystitis. Apunctate nonobstructing calculus is seen at the superior pole of the leftkidney. 3. ?Sigmoid diverticu losis with no evidence of diverticulitis. Superiorendplate compression deformity of T12 vertebral body. Exam: CT ABDOMEN PELVIS W CONTRAST Clinical History: Abd pain, acute, generalized Comparison: August2015 Findings: The visualized lungs are clear and there is no evidence of pleuralpericardial effusion. The liver, gallbladder, spleen, adrenals, and the pancreas appear normal. A0.4 cm obstructive stone is seen in the right proximal ureter withresultant hydronephrosis and hydroureter. A punctate nonobstructingcalculus is seen at the superior pole of the left kidney (4:73). No evidence of free fluid, air, or lymphadenopathy seen in the abdomen andpelvis. No evidence of dilated bowel loops. Diverticulosis involving thesigmoid colon with no evidence of diverticulitis. Normal appendix is seenin the right lower quadrant. Prior hysterectomy with no adnexal masses. The urinary bladder shows muralthickening. The vasculature and the abdominal wall are within normallimits. T12 vertebral body shows superiorendplate compression deformity. [facility], Radiant Results Inft User - 10/02/2019 9:17 PM CDTExam: CT ABDOMEN PELVIS W CONTRASTClinical History: Abd pain, [...] the right proximal ureter withright-sided hydronephrosis and hydroureter.2. Mural thickening of the urinary bladder is concerning for cystitis. Apunctate nonobstructing calculus is seen at the superior pole of the leftkidney.3. Sigmoid diverticulosis with no evidence of diverticulitis. Superiorendplate compression deformity of T12 vertebral body. [facility] [id number] 01:03:00 Test Item Value Reference Range Interpretation Comments TROPONIN I (test <0.012 See_Comment [Automated code = 0062384535) message] The system which generated this result [...] ? Lab Interpretation Normal (test code = 19460-5) [facility]. METABOLIC PANEL (53271)2019-10-03 00:52:00 Test Item Value Reference Range Interpretation Comments NA (test code = 140 mmol/L 135-145 4557953815) K (test code = 3.8 mmol/L 3.5-5 5595146734) CL (test code = 108 mmol/L 98-108 3263662846) CO2 TOTAL (test code = 24 mmol/L 23-31 9046366536) AGAP (test code = 2-16 5545454021) BUN (test code = 21 mg/dL 7-23 6192543566) GLUCOSE (test code = 99 mg/dL 70-110 8162010698) CREATININE (test code = 1.12 mg/dL 0.5-1.04 H 6004608341) TOTAL BILI (test code = 0.9 mg/dL 0.1-1.4 7139250576) CALCIUM (test code = 9.4 mg/dL 8.6-10.6 1725228293) T PROTEIN (test code = 7.4 g/dL 6.3-8.2 0088393067) ALBUMIN (test code = 4.5 g/dL 3.5-5 5038622295) ALK PHOS (test code = 95 U/L 34-122 1319312491) ALTv (test code = 14 U/L 5-35 1742-6) AST(SGOT) (test code = 26 U/L 13-40 3316824971) eGFR Calculation mL/min/1.73m2 (Non-) (test code = 0368739507) eGFR Calculation mL/min/1.73m2 () (test code = 0621741077) ISI (test code = ISI) Association of [...] tests). Lab Interpretation Abnormal (test code = 85064-7) [facility] 00:52:00 Test Item Value Reference Range Interpretation Comments MAGNESIUM (test code = 5806045749) 2.0 mg/dL 1.7-2.4 Lab Interpretation (test code = Normal 88459-8) [facility] 00:51:00 Test Item Value Reference Range Interpretation Comments APPEARANCE (test code = Hazy Clear A 0445372078) COLOR (test code = Lexi Yellow A 9392503411) PH (test code = 4.8-8.0 0754527983) SP GRAVITY (test code = 1.003-1.030 H 5662246573) GLU U QUAL (test code = Normal Normal 9074857039) BLOOD (test code = Negative Negative 2118702068) KETONES (test code = 5 mg/dL Negative A 2886137196) PROTEIN (test code = Negative Negative 2887-8) UROBILIN (test code = 2.0 mg/dL Normal A 2112775468) BILIRUBIN (test code = 2 mg/dL Negative A 9579803006) NITRITE (test code = Negative Negative 9995476938) LEUK SERG (test code = Negative Negative 5295092689) RBC/HPF (test code = <1 See_Comment [Autom ated message] 7910696960) The system [employer]ak generated this result transmit alysha reference range : 0 - 3 HPF. The refe rence range was not u sed to interpret th is result as normal/abnormal . WBC/HPF (test code = See_Comment [Autom ated message] 6375833160) The system whic h generated this result transmit alysha reference range : 0 - 5 HPF. The refe rence range was not u sed to interpret th is result as normal/abnormal . BACTERIA (test code = Few Negative A 5598956550) MUCOUS (test code = Moderate Negative LPF A 8257203255) SQ EPITH (test code = HPF 1635420814) Ictotest (test code = Negative 6703012344) Lab Interpretation (test Abnormal code = 52870-7) [facility] 00:51:00 Test Item Value Reference Range Interpretation Comments LIPASE (test code = 4810100476) 58 U/L 0-220 Lab Interpretation (test code = Normal 81410-7) [facility] WITH [id number] 00:27:00 Test Item Value Reference Range Interpretation Comments WBC (test code = See_Comment [Automated 0699-2) message] The sy stem which generated this result transmitted reference range : 4.30 - 11.10 10*3/?L. The reference range was not used to interpret this result as normal/abnormal . RBC (test code = See_Comment [Automated 096-8) message] The sy stem which generated this [...] RDW-SD (test code = 43.1 fL 39-49.9 01394-5) RDW-CV (test code = 12.3 % 12-15.5 788-0) PLT (test code = See_Comment [Automated 137-3) message] The sy stem which generated this result transmitted reference range : 166 - 358 10*3/ ?L. The reference r mima was not used to interpret this result as normal/abnormal . MPV (test code = 10.7 fL 9.5-12.9 54681-0) NRBC/100 WBC (test See_Comment [Automat ed code = 8247810727) message] The system which generated this result transmitted reference range : 0.0 - 10.0 /100 WBCs. The refer ence range was not u sed to interpret th is result as normal/abnormal . NRBC x10^3 (test code <0.01 See_Comment [Auto mated = 7862749870) message] The s ystem which generated this result transmitted reference range : 10*3/?L. The reference range was not used to interpret this result as normal/abnormal . GRAN MAT (NEUT) % 60.7 % (test code = 770-8) IMM GRAN % (test code 0.30 % = 5934503671) LYMPH % (test code = 27.7 % 736-9) MONO % (test code = 10.7 % 5905-5) EOS % (test code = 0.3 % 713-8) BASO % (test code = 0.3 % 706-2) GRAN MAT x10^3(ANC) 5.70 10*3/uL 1.88-7.09 (test code = 0847139586) IMM GRAN x10^3 (test 0.03 10*3/uL 0-0.06 code = 1178667740) LYMPH x10^3 (test code 2.60 10*3/uL 1.32-3.29 = 731-0) MONO x10^3 (test code 1.01 10*3/uL 0.33-0.92 H = 742-7) EOS x10^3 (test code = 0.03 10*3/uL 0.03-0.39 711-2) BASO x10^3 (test code 0.03 10*3/uL 0.01-0.07 = 704-7) Lab Interpretation Abnormal (test code = 30364-5) [facility] 1 [id number] 23:48:43 No acute cardiopulmonary abnormality. Preliminary Report Dictated by Resident: Flex Cantrell MD., have reviewed this study and agree with theabove report.XR CHEST 1 VW Comparison: 01/12/2017, CT chest 07/27/2019 History: cough Findings: Subsegmental atelectasis is seen in the right lung base. The lungs areotherwise clear. No pleural effusion, focal consolidation, or pneumo thoraxis identified. The cardiomediastinal silhouette is normal in size. No acute osseous abnormality is present. [facility], Radiant Results Inft User - 10/02/2019 6:49 PM CDTXR CHEST 1 VWComparison: 01/12/2017, CT chest 07/27/2019History: cough Findings:Subsegmental atelectasis is seen in the right lung base. The lungs areotherwise clear. No pleural effusion, focal consolidation, or pneumothoraxis identified. The cardiomediastinal silhouette is normal in size. No acute osseous abnormality is present.IMPRESSIONNo acute cardiopulmonary abnormality.Preliminary Report Dictated by Resident: Flex Fang MD., have reviewed this study and agree with theabove report.[facility] WITH DIFFERENTIAL 2019-07-27 04:09:00 Test Item Value [...] RDW-SD (test code = 45.1 fL 39-49.9 51216-8) RDW-CV (test code = 13.0 % 12-15.5 788-0) PLT (test code = See_Comment [Automated 777-3) message] The sy stem which generated this result transmitted reference range : 166 - 358 10*3/ ?L. The reference r mima was not used to interpret this result as normal/abnormal . MPV (test code = 9.6 fL 9.5-12.9 35968-6) NRBC/100 WBC (test See_Comment [Automat ed code = 0023088836) message] The system which generated this result transmitted reference range : 0.0 - 10.0 /100 WBCs. The refer ence range was not u sed to interpret th is result as normal/abnormal . NRBC x10^3 (test code <0.01 See_Comment [Auto mated = 8537300179) message] The s ystem which generated this result transmitted reference range : 10*3/?L. The reference range was not used to interpret this result as normal/abnormal . GRAN MAT (NEUT) % 33.8 % (test code = 770-8) IMM GRAN % (test code 0.20 % = 9082259799) LYMPH % (test code = 50.5 % 736-9) MONO % (test code = 12.4 % 5905-5) EOS % (test code = 2.5 % 713-8) BASO % (test code = 0.6 % 706-2) GRAN MAT x10^3(ANC) 1.61 10*3/uL 1.88-7.09 L (test code = 4294724797) IMM GRAN x10^3 (test <0.03 0-0.06 code = 4736694394) LYMPH x10^3 (test code 2.41 10*3/uL 1.32-3.29 = 731-0) MONO x10^3 (test code 0.59 10*3/uL 0.33-0.92 = 742-7) EOS x10^3 (test code = 0.12 10*3/uL 0.03-0.39 711-2) BASO x10^3 (test code 0.03 10*3/uL 0.01-0.07 = 704-7) Lab Interpretation Abnormal (test code = 07694-2) [id number] 03:52:00 Test Item Value Reference Range Interpretation Comments TROPONIN I (test 0.001 ng/mL See_Comment [Automated code = 8044839925) message] The system which generated this result [...] ? Lab Interpretation Normal (test code = 43089-7) [facility] METABOLIC PANEL (21996)2019-07-27 03:41:00 Test Item Value Reference Range Interpretation Comments NA (test code = 142 mmol/L 135-145 7704805172) K (test code = 4.0 mmol/L 3.5-5 6217164440) CL (test code = 111 mmol/L 98-108 H 0292985265) CO2 TOTAL (test code = 26 mmol/L 23-31 2749895537) AGAP (test code = 2-16 3830153506) BUN (test code = 14 mg/dL 7-23 6356994271) GLUCOSE (test code = 96 mg/dL 70-110 8450320230) CREATININE (test code = 0.96 mg/dL 0.5-1.04 6749899568) TOTAL BILI (test code = 0.1 mg/dL 0.1-1.9 0443238769) CALCIUM (test code = 8.6 mg/dL 8.6-10.6 0338437746) T PROTEIN (test code = 6.3 g/dL 6.3-8.2 0648177435) ALBUMIN (test code = 3.7 g/dL 3.5-5 1657192864) ALK PHOS (test code = 85 U/L 34-122 5999389461) ALTv (test code = 16 U/L 5-35 1742-6) AST(SGOT) (test code = 18 U/L 13-40 3368910111) eGFR Calculation mL/min/1.73m2 (Non-) (test code = 2475713000) eGFR Calculation mL/min/1.73m2 () (test code = 5288528090) ISI (test code = ISI) Association of [...] tests). Lab Interpretation Abnormal (test code = 02344-0) [facility] / [id number] 03:34:00 Test Item Value Reference Range Interpretation Comments PROTIME PATIENT (test See_Comment [Auto mated message] code = 5964-2) The system Phantom generated this result transmitted ref erence range: 12.0 - 1 4.7 Seconds. The re ference range was not u sed to interpret this result as normal/abnor mal. INR (test code = 6301-6) Nor mal INR <1.1; Warfarin Therap eutic range 2.0 to 3. 0 or 2.5 to 3.5, dep ending upon the indica tions. Lab Interpretation (test Normal code = 09284-7) [facility]"
[2021-12-10 00:14] LABS: Urine Blood 3+ (Negative); Urine Glucose Negative (Negative); Urine Protein Negative (Negative); Urine Specific Gravity >=1.030 (1.005-1.030); Urine pH 5.5 (5.0-7.0)
[2021-12-10 00:23] LABS: Absolute Lymphocytes (CBC) 2.7 K/uL (0.7-4.9); Hematocrit 34.6 % (36.0-45.0); MCV 91.5 fL (80-100); MPV 8.4 fL (7.6-11.3); RBC Red Blood Cell Count 3.78 M/uL (3.86-4.86)
[2021-12-10] MEDS ORDERED: KETOROLAC 30 MG/ML INJ ONE (00:28)
[2021-12-10] MEDS ORDERED: PROMETHAZINE INJ 25 MG/ML AMP ONE (00:29)
[2021-12-10 00:33] LABS: Albumin 3.6 g/dL (3.4-5.0); Bilirubin Total 0.4 mg/dL (0.2-1.0); Potassium 3.6 mmol/L (3.5-5.1); Protein, Total 6.7 g/dL (6.4-8.2)
[2021-12-10] MEDS ORDERED: NA CHLORIDE 0.9% 1,000 ML ONE (00:33)
[2021-12-10] MEDS ORDERED: FENTANYL CITR 100 MCG/2 ML ONE (00:33)
[2021-12-10] MEDS ORDERED: TAMSULOSIN 0.4 MG SR CAP ONE (01:36)
[2021-12-10] MEDS ORDERED: CEFTRIAXONE 1000 MG/VIAL ONE (01:37)
--- NOTE | 2021-12-10 02:08 | EDPHYS ---
Physician Documentation [facility] Name: Sydni Verma [place] Age: 66 yrs Sex: Female : 1955 Arrival Date: 12/09/2021 Time: 23:25 Bed 13 Private MD: ED Physician Donnie Bennett HPI: 12/10 00:52 This 66 yrs old Female presents to ER via Ambulatory with complaints of Possible Kidney snw Stone. 00:52 Onset: The symptoms/episode began/occurred suddenly, 1999. Associated signs and snw symptoms: Pertinent positives: nausea, flank pain, restlessness. Modifying factors: The patient symptoms are alleviated by nothing, the patient symptoms are aggravated by nothing. The patient has experienced similar episodes in the past, multiple times. It is unknown whether or not the patient has recently seen a physician. hx of kidney stones. Historical: - Allergies: 01:25 E.E.S. 400; snw 01:25 Bactrim; snw - Home Meds: 12/09 23:36 None [Active]; ld1 - PMHx: 23:36 None; ld1 - PSHx: 23:36 Total abdominal hysterectomy; ld1 - Immunization history:: Adult Immunizations up to date, Client reports receiving the 2nd dose of the Covid vaccine. - Social history:: Smoking status: Patient reports the use of cigarette tobacco products, smokes one-half pack cigarettes per day, Patient/guardian denies using alcohol. ROS: 12/10 00:50 Constitutional: Negative for fever, chills, and weight loss, Eyes: Negative for injury, snw pain, redness, and discharge, ENT: Negative for injury, pain, and discharge, Neck: Negative for injury, pain, and swelling, Cardiovascular: Negative for chest pain, palpitations, and edema, Respiratory: Negative for shortness of breath, cough, wheezing, and pleuritic chest pain. MS/Extremity: Negative for injury and deformity, Skin: Negative for injury, rash, and discoloration, Neuro: Negative for headache, weakness, numbness, tingling, and seizure, Psych: Negative for depression, anxiety, suicide ideation, homicidal ideation, and hallucinations. Abdomen/GI: Positive for nausea. Back: Positive for flank pain, on the left. : Positive for flank pain. Exam: 00:50 Head/Face: Normocephalic, atraumatic. Eyes: Pupils equal round and reactive to light, snw extra-ocular motions intact. Lids and lashes normal. Conjunctiva and sclera are non-icteric and not injected. Cornea within normal limits. Periorbital areas with no swelling, redness, or edema. ENT: Nares patent. No nasal discharge, no septal abnormalities noted. Tympanic membranes are normal and external auditory canals are clear. Oropharynx with no redness, swelling, or masses, exudates, or evidence of obstruction, uvula midline. Mucous membranes moist. Neck: Trachea midline, no thyromegaly or masses palpated, and no cervical lymphadenopathy. Supple, full range of motion without nuchal rigidity, or vertebral point tenderness. No Meningismus. Chest/axilla: Normal chest wall appearance and motion. Nontender with no deformity. No lesions are appreciated. Cardiovascular: Regular rate and rhythm with a normal S1 and S2. No gallops, murmurs, or rubs. Normal PMI, no JVD. No pulse deficits. Respiratory: Lungs have equal breath sounds bilaterally, clear to auscultation and percussion. No rales, rhonchi or wheezes noted. No increased work of breathing, no retractions or nasal flaring. 00:50 Back: No spinal tenderness. No costovertebral tenderness. Full range of motion. Skin: Warm, dry with normal turgor. Normal color with no rashes, no lesions, and no evidence of cellulitis. MS/ Extremity: Pulses equal, no cyanosis. Neurovascular intact. Full, normal range of motion. Neuro: Awake and alert, GCS 15, oriented to person, place, time, and situation. Cranial nerves II-XII grossly intact. Motor strength 5/5 in all extremities. Sensory grossly intact. Cerebellar exam normal. Normal gait. Psych: Awake, alert, with orientation to person, place and time. Behavior, mood, and affect are within normal limits. 00:50 Constitutional: The patient appears alert, awake, anxious, restless, uncomfortable. 00:50 Abdomen/GI: Inspection: abdomen appears normal, Bowel sounds: normal, Palpation: abdomen is soft and non-tender. Vital Signs: 12/09 23:35 BP 135 / 79; Pulse 49; Resp 18; Temp 98.2(TE); Pulse Ox 97% on R/A; Weight 65.77 kg; ld1 Height 5 ft. 8 in. (172.72 cm); Pain 12/09; 12/10 02:03 BP 123 / 60; Pulse 60; Resp 16; Pulse Ox 100% ; Pain 05/11; ja4 12/09 23:35 Body Mass Index 22.05 (65.77 kg, 172.72 cm) ld1 MDM: 12/09 23:41 Patient medically screened. brian 12/10 01:13 Differential diagnosis: nephrolithiasis, pyelonephritis, UTI, diverticulitis, brian pancreatitis. Data reviewed: vital signs, nurses notes, lab test result(s), radiologic studies, CT scan. Data interpreted: bdr: rate is 97 beats/min, rhythm is regular, Pulse oximetry: on room air is 97 %. Counseling: I had a detailed discussion with the patient and/or guardian regarding: the historical points, exam findings, and any diagnostic results supporting the discharge/admit diagnosis, lab results, radiology results, the need for outpatient follow up, for definitive care, a family practitioner, a urologist. 12/09 23:39 Order name: CBC with Diff; Complete Time: 00:54 ld1 12/09 23:39 Order name: CMP; Complete Time: 00:54 [facility] 12/09 23:39 Order name: Lipase; Complete Time: 00:54 1 12/10 00:14 Order name: Urine Dipstick-Ancillary; Complete Time: 00:24 [facility]NY 12/10 00:18 Order name: Urine Dipstick-Ancillary [facility] 12/10 00:08 Order name: CT Stone Protocol snw 12/09 23:39 Order name: IV Saline Lock; Complete Time: 00:16 ld1 12/09 23:39 Order name: Labs collected and sent; Complete Time: 00:16 ld1 12/09 23:39 Order name: Urine Dipstick-Ancillary (obtain specimen); Complete Time: 00:16 ld1 Administered Medications: 00:33 Drug: fentaNYL (PF) 25 mcg Route: IVP; Site: right antecubital; ja4 00:33 Drug: Ketorolac 30 mg Route: IVP; Site: right antecubital; ja4 00:34 Drug: NS 0.9% 1000 ml Route: IV; Rate: 1 bolus; Site: right antecubital; ja4 00:34 Drug: Promethazine 6.25 mg Route: IVP; Site: right antecubital; [facility] 01:31 Drug: Flomax (tamsulosin) 0.4 mg Route: PO; 01:31 Drug: Rocephin (cefTRIAXone) 1 grams Route: IV; Rate: per protocol; Site: right ja4 antecubital; 02:44 Drug: Cipro (ciprofloxacin) 500 mg Route: PO; 03:36 Not Given (Patient Refused): NS 0.9% 1000 ml IV at 1 bolus Per protocol; 1000 mL bolus [facility] Disposition: 01:13 Co-signature as Attending Physician, Donnie Bennett MD I agree with the assessment and brian plan of care. Disposition Summary: 12/10/21 02:08 Discharge Ordered Location: Home brian Problem: new brian Symptoms: have improved brian Condition: Stable brian Diagnosis - Hydronephrosis with renal and ureteral calculous obstruction brian - UTI/ Urinary tract infection, site not specified brian Followup: brian - With: Private Physician - When: 2 - 3 days - Reason: Recheck today's complaints, Continuance of care, Re-evaluation by your physician Followup: brian - With: - When: 2 - 3 days - Reason: Recheck today's complaints, Re-evaluation by your physician Discharge Instructions: - Discharge Summary Sheet brian - Kidney Stones brian - Kidney Stones, [id number] brian - Hydronephrosis brian - Dietary Guidelines to Help Prevent Kidney Stones brian Forms: - Medication Reconciliation Form brian - Thank You Letter brian - Antibiotic Education brian - Prescription Opioid Use brian Prescriptions: - ketorolac 10 mg Oral tablet - take 1 tablet by ORAL route every 6 hours not to exceed 40 mg in 24hrs; 12 brian tablet; Refills: 0, Product Selection Permitted - Zofran 4 mg Oral Tablet - take 1 tablet by ORAL route every 12 hours As needed; 20 tablet; Refills: 0, [facility] Product Selection Permitted - Tramadol 50 mg Oral Tablet - take 2 tablet by ORAL route every 8 hours as needed; 24 tablet; Refills: 0, [facility] Product Selection Permitted - Cipro 500 mg Oral Tablet - take 1 tablet by ORAL route every 12 hours for 7 days; 14 tablet; Refills: 0, [facility] Product Selection Permitted Signatures: Dispatcher [employer] Donnie Nunez MD MD cha Waters, Shelly, STEREO COMPILER-C STEREO COMPILER-Csnw Adrienne Cash RN RN ld1 Shabbir Romero RN RN ja4 Corrections: (The following items were deleted from the chart) 12/09 23:37 23:36 Allergies: No Known Allergies; ld1 ld1 12/10 01:25 12/09 23:36 Allergies: No Known Allergies; ld1 snw
--- NOTE | 2021-12-10 02:08 | ER ---
Nurse's Notes [facility] Name: Sydni Verma [place] Age: 66 yrs Sex: Female : 1955 Arrival Date: 12/09/2021 Time: 23:25 Bed 13 Private MD: Diagnosis: Hydronephrosis with renal and ureteral calculous obstruction;UTI/ Urinary tract infection, site not specified Presentation: 12/09 23:35 Chief complaint: Patient states: Left flank pain X 1 day. Coronavirus screen: At this ld1 time, the client does not indicate any symptoms associated with coronavirus-19. Ebola Screen: No symptoms or risks identified at this time. Initial Sepsis Screen: Does the patient meet any 2 criteria? No. Patient's initial sepsis screen is negative. Does the patient have a suspected source of infection? No. Patient's initial sepsis screen is negative. Risk Assessment: Do you want to hurt yourself or someone else? Patient reports no desire to harm self or others. Onset of symptoms was December 09, 2021. 23:35 Method Of Arrival: Ambulatory ld1 23:35 Acuity: BRODY 3 ld1 Triage Assessment: 23:36 General: Appears in no apparent distress. uncomfortable, Behavior is calm, cooperative, ld1 appropriate for age. Pain: Complains of pain in left low back. EENT: No signs and/or symptoms were reported regarding the EENT system. Neuro: Level of Consciousness is awake, alert, obeys commands, Oriented to person, place, time, situation, Appropriate for age. Cardiovascular: Capillary refill < 3 seconds Patient's skin is warm and dry. Rhythm is sinus bradycardia. Respiratory: Airway is patent Respiratory effort is even, unlabored. GI: Abdomen is flat, obese. : No signs and/or symptoms were reported regarding the genitourinary system. Derm: No signs and/or symptoms reported regarding the dermatologic system. Musculoskeletal: No signs and/or symptoms reported regarding the musculoskeletal system. Historical: - Allergies: 12/10 01:25 E.E.S. 400; snw 01:25 Bactrim; snw - Home Meds: 12/09 23:36 None [Active]; ld1 - PMHx: 23:36 None; ld1 - PSHx: 23:36 Total abdominal hysterectomy; ld1 - Immunization history:: Adult Immunizations up to date, Client reports receiving the 2nd dose of the Covid vaccine. - Social history:: Smoking status: Patient reports the use of cigarette tobacco products, smokes one-half pack cigarettes per day, Patient/guardian denies using alcohol. Screenin:45 Nutritional screening: No deficits noted. Tuberculosis screening: No symptoms or risk ja4 factors identified. Fall Risk None identified. Assessment: 23:45 General: Appears in no apparent distress. Pain: Complains of pain in left lower ja4 quadrant Pain currently is 8 out of 10 on a pain scale. : Reports pain in left flank(s), lower quadrant(s). Vital Signs: 23:35 BP 135 / 79; Pulse 49; Resp 18; Temp 98.2(TE); Pulse Ox 97% on R/A; Weight 65.77 kg; ld1 Height 5 ft. 8 in. (172.72 cm); Pain 12/09; 12/10 02:03 BP 123 / 60; Pulse 60; Resp 16; Pulse Ox 100% ; Pain 05/11; ja4 12/09 23:35 Body Mass Index 22.05 (65.77 kg, 172.72 cm) ld1 ED Course: 12/09 23:25 Patient arrived in ED. bp1 23:36 Triage completed. ld1 23:36 Arm band placed on right wrist. ld1 23:40 Sirisha Amador FNP-C is PHCP. snw 23:40 Donnie Bennett MD is Attending Physician. snw 23:41 Shabbir Romero, MICHEL is Primary Nurse. ja4 23:45 Patient has correct armband on for positive identification. Bed in low position. Call ja4 light in reach. Adult w/ patient. 23:45 No provider procedures requiring assistance completed. ja4 08 00:16 CBC with Diff Sent. ja4 00:16 CMP Sent. ja4 00:16 Lipase Sent. ja4 00:16 Inserted saline lock: 20 gauge in right antecubital area, using aseptic technique. ja4 Blood collected. 00:54 CT Stone Protocol In Process Unspecified. EDMS 02:07 Rui Estrada MD is Referral Physician. brian 03:36 IV discontinued, intact, bleeding controlled, No redness/swelling at site. Pressure ja4 dressing applied. Administered Medications: 00:33 Drug: fentaNYL (PF) 25 mcg Route: IVP; Site: right antecubital; ja4 00:33 Drug: Ketorolac 30 mg Route: IVP; Site: right antecubital; ja4 00:34 Drug: NS 0.9% 1000 ml Route: IV; Rate: 1 bolus; Site: right antecubital; ja4 00:34 Drug: Promethazine 6.25 mg Route: IVP; Site: right antecubital; ja4 01:31 Drug: Flomax (tamsulosin) 0.4 mg Route: PO; ja4 01:31 Drug: Rocephin (cefTRIAXone) 1 grams Route: IV; Rate: per protocol; Site: right ja4 antecubital; 02:44 Drug: Cipro (ciprofloxacin) 500 mg Route: PO; ja4 03:36 Not Given (Patient Refused): NS 0.9% 1000 ml IV at 1 bolus Per protocol; 1000 mL bolus ja4 Medication: 12/09 23:45 VIS not applicable for this client. ja4 Outcome: 12/10 02:08 Discharge ordered by MD. torres 03:36 Discharged to home ambulatory. [email or web address] 03:36 Condition: stable 03:36 Discharge instructions given to patient. 03:38 Patient left the ED. 4 Signatures: Dispatcher [employer] EDMS Donnie Bennett MD MD cha Waters, Shelly, PROSTHETIC DENTIST-C PROSTHETIC DENTIST-Csnw Noreen Becerril Lauren, RN RN [email or web address] Shabbir Romero RN RN [email or web address] Corrections: (The following items were deleted from the chart) 12/09 23:37 23:36 Allergies: No Known Allergies; ld1 ld1 12/10 01:25 12/09 23:36 Allergies: No Known Allergies; ld1 snw
[2021-12-10] MEDS ORDERED: CIPROFLOXACIN HCL 500 MG TAB ONE (02:52)
[2021-12-10 04:03] VITALS: TEMP 98.2
[2021-12-10 04:06] VITALS: BP 123/60; O2SAT 100
--- NOTE | 2021-12-10 18:04 | RAD REPORT ---
EXAM DESCRIPTION: CT - Stone Protocol - 12/10/2021 5:48 am CLINICAL HISTORY: Left flank pain COMPARISON: 03/02/2018 TECHNIQUE: CT of the abdomen and pelvis without IV contrast. Evaluation of the solid organs and vasc ulature is suboptimal due to lack of IV contrast. This exam was performed according to our department al dose-optimization program, which includes automated exposure control, adjustment of the mA and/or kV according to patient size and/or use of iterative reconstruction technique. FINDINGS: Lung Bases: The visualized lung bases are clear. Bones: Chronic appearing compression deformity of T12. Multilevel endplate spondylosis and facet arth ropathy. Abdomen: Liver: The liver has normal size and density. Gallbladder: No calcified gallstones. Spleen, Pancreas, and Adrenal Glands: The spleen, pancreas, and adrenal glands are unremarkable. Kidneys: Punctate nonobstructing bilateral nephrolithiasis. No right hydronephrosis. There is a 0.5 c m obstructing calculus in the proximal left ureter producing moderate left hydronephrosis. Left perin ephric fat stranding. Vasculature: Aortoiliac atherosclerosis. IVC is unremarkable. Stomach: Small hiatal hernia. Other: No free intraperitoneal air. No free fluid or lymphadenopathy. Tiny fat-containing umbilic al hernia. Pelvis: Bladder: Urinary bladder is unremarkable. Bowel: No dilated loops of large or small bowel. Scattered diverticula colon. Appendix: Normal appendix. Pelvis: Prostate is not enlarged. IMPRESSION: 1. There is a 0.5 cm obstructing calculus in the proximal left ureter producing modera te left hydronephrosis. 2. Punctate nonobstructing bilateral nephrolithiasis. 3. Diverticulosis without evidence of acute diverticulitis. 4. Small hiatal hernia. Electronically signed by: Alvino Mark 12/10/2021 1:19 AM CDT Due to temporary technical issues with the PACS/Fluency reporting system, reports are being signed by the in house radiologists without review as a courtesy to insure prompt reporting. The interpreting radiologist is fully responsible for the content of the report.
== END 2021-12-10 03:38 | disposition home or self-care (01) ==
LOC: ER 23:23
DX: N13.2 Hydronephrosis with renal and ureteral calculous obstruction (principal); N39.0 Urinary tract infection, site not specified; F17.210 Nicotine dependence, cigarettes, uncomplicated; Z88.1 Allergy status to other antibiotic agents; Z20.822 Contact with and (suspected) exposure to COVID-19
CPT/HCPCS: 85025; 36415; 81003; 83690; 80053; 76377; 74176; 96375; 96374; 99284; J2550; J3010; J7030

== ENCOUNTER 2021-12-11 12:43 | Emergency (ER) | payer BC ==
--- OUTSIDE RECORDS SUMMARY | 2021-12-11 12:47 | XMS REPORT | Continuity of Care Document ---
:1955 Author Organization [facility] t Address [address] [place] [address] Care Team Providers Name Role Phone FAN KAUFFMAN Primary Care Physician Unavailable FAN KAUFFMAN Attending Clinician Unavailable Fan Kauffman MD Attending Clinician JEFFRY HILL Attending Clinician Unavailable Dianna Morales MD Attending Clinician DIANNA MORALES Attending Clinician Unavailable Doctor Unassigned, [place] Attending Clinician Unavailable Room, [facility] Uro Procedure Attending Clinician Unavailable Tony PACRocky Attending Clinician King PACGianna S Attending Clinician TEJINDER ESPINO Attending Clinician Unavailable JAMIR MURGUIA Attending Clinician Unavailable Jamir Murguia MD Attending Clinician DIANNA MORALES Admitting Clinician Unavailable Dianna Morales MD Admitting Clinician JAMIR MURGUIA Admitting Clinician Unavailable Payers Payer Name Policy Type Policy Number Effective Date Expiration Date S sarah [employer] OF [place] - [id number] 2017 2020 00:00:0 0 OUT OF STATE 00:00:00 Problems Condition Condition Condition Status Onset Resolution Last Treating Co mments Source Name Details Category Date Date Treatment Clinician Date Ureteral Ureteral Disease Active Unive rs [place] 10-02 ity of 00:00: [address] Urinary Urinary Disease Active Overview: Univ ers tract tract 10-01 Added ity of infection infection 00:00: automatic [place] without without 00 ally from Medic al hematuria, hematuria, request B ranch site site for unspecifie unspecifie surgery d d [id number] Bronchitis Bronchitis Disease Active 2016-05 U nivers 2-17 ity of 00:00: [place] 00 [facility] Depression Depression Disease Active 2014-05 U nivers 0-27 ity of 00:00: [place] 00 Medical Branch 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 U nivers e migraine e migraine 0-27 it y of with aura with aura [...] INGREDI 09-30 ity of 00:00: [place] 00 [facility] Clindamy Propensi Active Swelling 2019-0 Univ ers ruby ty to 09-30 ity of adverse 00:00: [place] reaction 00 Medical s Branch NO KNOWN Drug Active Univers ALLERGIE Class ity of S [facility] Social History Social Habit Start Date Stop Date Quantity Comments Source History of Cigarette Smoker Universi ty of tobacco use [facility] Sex Assigned At Universit y of [facility] Exposure to Not sure Delta of SARS-CoV-2 [facility] (event) [place] Tobacco use and 2019-11-22 2019-11-22 Never used Universit y of exposure 00:00:00 00:00:00 [facility] Cigarettes smoked 2019-11-22 2019-11-22 Univers ity of current (pack per 00:00:00 00:00:[address] [facility]) - Reported Branch Cigarette 2019-11-22 2019-11-22 University of pack-years 00:00:00 00:00:00 [facility] Alcohol intake 2019-11-22 2019-11-22 Current drinker of Un iversity of 00:00:00 00:00:00 alcohol (finding) [facility] Tobacco Comment 2017-01-11 2017-01-11 0.5 pack weekly Univ ersity of 00:00:00 00:00:00 [facility] Alcohol Comment 2015-02-25 2015-02-25 occationally Univers ity of 00:00:00 00:00:00 [facility] Smoking Status Start Date Stop Date Source Current every day smoker 2019-11-22 00:00:00 Uni versity of [facility] Medications Ordered Filled Start Stop Current Ordering Indication Dosage Frequency Signature Comments Components Source Medication Medication Date Date Medication? Clinician (SIG) Name Name eletriptan 2019-05 2020- No [id number] 40mg Take 1 Univers 40 mg 1-20 -21 tablet by ity of tablet 00:00: 05:59 [place] :[place] now for 1 Medical dose. May Branch repeat in 2 hours if necessary tamsulosin 2019-0 Yes [id number] .4mg Take 1 U nivers 0.4 mg 24 6-04 capsule by ity of hr capsule 00:00: mouth [place] 00 daily. Medical Branch tamsulosin 2020-0 Yes [id number] .4mg Take 1 U nivers 0.4 mg 24 6-04 capsule by ity of hr capsule 00:00: mouth [place] 00 daily. Medical Branch tamsulosin 2020-0 Yes [id number] .4mg Take 1 U nivers 0.4 mg 24 6-04 capsule by ity of hr capsule 00:00: mouth [place] 00 daily. Medical Branch tamsulosin 2020-0 Yes [id number] .4mg Take 1 U nivers 0.4 mg 24 6-04 capsule by ity of hr capsule 00:00: mouth [place] 00 daily. Medical Branch tamsulosin 2020-0 Yes [id number] .4mg Take 1 U nivers 0.4 mg 24 6-04 capsule by ity of hr capsule 00:00: mouth [place] 00 daily. Medical Branch tamsulosin 2020-0 Yes [id number] .4mg Take 1 U nivers 0.4 mg 24 6-04 capsule by ity of hr capsule 00:00: mouth [place] 00 daily. Medical Branch tamsulosin 2020-0 Yes [id number] .4mg Take 1 U nivers 0.4 mg 24 6-04 capsule by ity of hr capsule 00:00: mouth [place] 00 daily. Medical Branch tamsulosin 2020-0 Yes [id number] .4mg Take 1 U nivers 0.4 mg 24 6-04 capsule by ity of hr capsule 00:00: mouth [place] 00 daily. Medical Branch tamsulosin 2020-0 Yes [id number] .4mg Take 1 U nivers 0.4 mg [...] No 25ug 25 mcg, Un rickey (SUBLIMAZE 10-02- Slow IV ity o f (PF)) 17:44: [...] Yes .4mg 0.4 mg, Univ ers (FLOMAX) 03 Oral, ity of capsule 0.4 14:00: DAILY, [...] at 0115, Until Discontinu ed, Routine ketorolac 2019- Yes 30mg 30 mg, Univer s (TORADOL) [...] 10/02/19 at Branch 2315, STAT NaCl 0.9% 2019- No 1000mL at 999 Uni vers (NS) bolus 10-02 0603 mL/hr, ity of infusion 01:30: 01:33 1,000 [...] 2045, 120 mL Routine gabapentin 2020-0 Yes [id number] 300mg Take 1 Univers 300 mg 6-03 capsule by ity of capsule 00:00: mouth (three) Medical times Branch daily. ketorolac 2020-0 Yes [id number] 10mg Take 1 Un rickey 10 mg 6-03 tablet by ity of tablet 00:00: mouth 00 every 8 Medical (eight) Branch hours as needed for Pain (scale 7-10). gabapentin 2020-0 Yes [id number] 300mg Take 1 Univers 300 mg 6-03 capsule by ity of capsule 00:00: mouth (three) Medical times Branch daily. ketorolac 2020-0 Yes [id number] 10mg Take 1 Un rickey 10 mg 6-03 tablet by ity of tablet 00:00: mouth every 8 Medical (eight) Branch hours as needed for Pain (scale 7-10). gabapentin 2020-0 Yes [id number] 300mg Take 1 Univers 300 mg 6-03 capsule by ity of capsule 00:00: mouth (three) Medical times Branch daily. ketorolac 2020-0 Yes [id number] 10mg Take 1 Un rickey 10 mg 6-03 tablet by ity of tablet 00:00: mouth every 8 Medical (eight) Branch hours as needed for Pain (scale 7-10). gabapentin 2020-0 Yes [id number] 300mg Take 1 Univers 300 mg 6-03 capsule by ity of capsule 00:00: mouth (three) Medical times Branch daily. ketorolac 2020-0 Yes [id number] 10mg Take 1 Un rickey 10 mg 6-03 tablet by ity of tablet 00:00: mouth [place] 00 every 8 Medical (eight) Branch hours as needed for Pain (scale 7-10). gabapentin 2020-0 Yes [id number] 300mg Take 1 Univers 300 mg 6-03 capsule by ity of capsule 00:00: mouth (three) Medical times Branch daily. ketorolac 2020-0 Yes [id number] 10mg Take 1 Un rickey 10 mg 6-03 tablet by ity of tablet 00:00: mouth [place] 00 every 8 Medical (eight) Branch hours as needed for Pain (scale 7-10). gabapentin 2020-0 Yes [id number] 300mg Take 1 Univers 300 mg 6-03 capsule by ity of capsule 00:00: mouth 3 [place] 00 (three) Medical times Branch daily. ketorolac 2020-0 Yes [id number] 10mg Take 1 Un rickey 10 mg 6-03 tablet by ity of tablet 00:00: mouth [place] 00 every 8 Medical (eight) Branch hours as needed for Pain (scale 7-10). gabapentin 2020-0 Yes [id number] 300mg Take 1 Univers 300 mg 6-03 capsule by ity of capsule 00:00: mouth 3 [place] 00 (three) Medical times Branch daily. ketorolac 2020-0 Yes [id number] 10mg Take 1 Un rickey 10 mg 6-03 tablet by ity of tablet 00:00: mouth [place] 00 every 8 Medical (eight) Branch hours as needed for Pain (scale 7-10). gabapentin 2020-0 Yes [id number] 300mg Take 1 Univers 300 mg 6-03 capsule by ity of capsule 00:00: mouth 3 00 (three) Medical times Branch daily. ketorolac 2020-0 Yes [id number] 10mg Take 1 Un rickey 10 mg 6-03 tablet by ity of tablet 00:00: mouth [place] 00 every 8 Medical (eight) Branch hours as needed for Pain (scale 7-10). gabapentin 2020-0 Yes [id number] 300mg Take 1 Univers 300 mg 6-03 capsule by ity of capsule 00:00: mouth 3 00 (three) Medical times Branch daily. ketorolac 2020-0 Yes [id number] 10mg Take 1 Un rickey 10 mg 6-03 tablet by ity of tablet 00:00: mouth [place] 00 every 8 Medical (eight) Branch hours as needed for Pain (scale 7-10). acetaminoph 2020-0 2021- No [id number] 650mg Take 2 Univers en 325 mg 6-03 06-04 tablets by ity of tablet 00:00: 04:59 mouth [place] 00 :00 every 6 Medical (six) Branch hours. acetaminoph 2020-0 2021- No [id number] 650mg Take 2 Univers en 325 mg 6-03 06-04 tablets by ity of tablet 00:00: 04:59 mouth [place] 00 :00 every 6 Medical (six) Branch hours. acetaminoph 2020-0 2021- No [id number] 650mg Take 2 Univers en 325 mg 6-03 06-04 tablets by ity of tablet 00:00: 04:59 mouth [place] 00 :00 every 6 Medical (six) Branch hours. acetaminoph 2019-2020- No [id number] 650mg Take 2 Univers en 325 mg 6-03 06-04 tablets by ity of tablet 00:00: 04:59 mouth [place] 00 :00 every 6 Medical (six) Branch hours. acetaminoph 2019-2020- No [id number] 650mg Take 2 Univers en 325 mg 6- 06-04 tablets by ity of tablet 00:00: 04:59 mouth [place] 00 :00 every 6 Medical (six) Branch hours. acetaminoph 2019-2020- No [id number] 650mg Take 2 Univers en 325 mg 6- 06-04 tablets by ity of tablet 00:00: 04:59 mouth [place] 00 :00 every 6 Medical (six) Branch hours. acetaminoph 2020- No [id number] 650mg Take 2 Univers en 325 mg 6- 06-04 tablets by ity of tablet 00:00: 04:59 mouth [place] 00 :00 every 6 Medical (six) Branch hours. acetaminoph 2020- No [id number] 650mg Take 2 Univers en 325 mg 6- 06-04 tablets by ity of tablet 00:00: 04:59 mouth [place] 00 :00 every 6 Medical (six) Branch hours. acetaminoph 2020- No [id number] 650mg Take 2 Univers en 325 mg 6- 06-04 tablets by ity of tablet 00:00: 04:59 mouth [place] 00 :00 every 6 Medical (six) Branch hours. ondansetron 2020- No 4mg 4 mg, Slow Univers (ZOFRAN 10-01 IV Push, ity of (PF)) 23:00: 22:05 ONCE, 1 [place] injection 4 00 :00 dose, Tue Med ical mg 10/02/19 at Branch 1800, IAM proMETHazin 2019- Yes [id number] 25mg Insert 1 Univers e 10-01 Suppositor ity of (PHENERGAN) 00:00: y [place] 25 mg 00 rectum Medical suppository every 6 Branc h (six) hours as needed for Nausea and Vomiting (N/V) or N/V unresponsi ve to Ondansetro n. proMETHazin 2020-0 Yes [id number] 25mg Insert 1 Univers e 6-02 Suppositor ity of (PHENERGAN) 00:00: y into [place] 25 mg 00 rectum Medical suppository every 6 Branc h (six) hours as needed for Nausea and Vomiting (N/V) or N/V unresponsi ve to Ondansetro n. proMETHazin 2020-0 Yes [id number] 25mg Insert 1 Univers e 6-02 Suppositor ity of (PHENERGAN) 00:00: y into [place] 25 mg 00 rectum Medical suppository every 6 Branc h (six) hours as needed for Nausea and Vomiting (N/V) or N/V unresponsi ve to Ondansetro n. proMETHazin 2020-0 Yes [id number] 25mg Insert 1 Univers e 6-02 Suppositor ity of (PHENERGAN) 00:00: y into [place] 25 mg 00 rectum Medical suppository every 6 Branc h (six) hours as needed for Nausea and Vomiting (N/V) or N/V unresponsi ve to Ondansetro n. proMETHazin 2020-0 Yes [id number] 25mg Insert 1 Univers e 6-02 Suppositor ity of (PHENERGAN) 00:00: y into [place] 25 mg 00 rectum Medical suppository every 6 Branc h (six) hours as needed for Nausea and Vomiting (N/V) or N/V unresponsi ve to Ondansetro n. proMETHazin 2020-0 Yes [id number] 25mg Insert 1 Univers e 6-02 Suppositor ity of (PHENERGAN) 00:00: y into [place] 25 mg 00 rectum Medical suppository every 6 Branc h (six) hours as needed for Nausea and Vomiting (N/V) or N/V unresponsi ve to Ondansetro n. proMETHazin 2020-0 Yes [id number] 25mg Insert 1 Univers e 6-02 Suppositor ity of (PHENERGAN) 00:00: y into [place] 25 mg 00 rectum Medical suppository every 6 Branc h (six) hours as needed for Nausea and Vomiting (N/V) or N/V unresponsi ve to Ondansetro n. proMETHazin 2020-0 Yes [id number] 25mg Insert 1 Univers e 6-02 Suppositor ity of (PHENERGAN) 00:00: y into [place] 25 mg 00 rectum Medical suppository every 6 Branc h (six) hours as needed for Nausea and Vomiting (N/V) or N/V unresponsi ve to Ondansetro n. proMETHazin 2020-0 Yes [id number] 25mg Insert 1 Univers e 6-02 Suppositor ity of (PHENERGAN) 00:00: y into [place] 25 mg 00 rectum Medical suppository every 6 Branc h (six) hours as needed for Nausea and Vomiting (N/V) or N/V unresponsi ve to Ondansetro n. ciprofloxac 2019-0 2020- No [id number] 500mg Take 1 Univers in HCl 500 10-01-03 tablet by ity of mg tablet 00:00: 00:00 mouth [place] 00 :00 every 12 Medical (twelve) Branch hours for 5 days. ondansetron 2020-0 Yes [id number] 8mg Take 1 Univers (ZOFRAN 6-01 tablet by ity of ODT) 8 mg 00:00: mouth [place] disintegrat 00 every 8 Medic al ing tablet (eight) Branch hours as needed for Nausea and Vomiting (N/V). ondansetron 2020-0 Yes [id number] 8mg Take 1 Univers (ZOFRAN 6-01 tablet by ity of ODT) 8 mg 00:00: mouth [place] disintegrat 00 every 8 Medic al ing tablet (eight) Branch hours as needed for Nausea and Vomiting (N/V). ondansetron 2020-0 Yes [id number] 8mg Take 1 Univers (ZOFRAN 6-01 tablet by ity of ODT) 8 mg 00:00: mouth [place] disintegrat 00 every 8 Medic al ing tablet (eight) Branch hours as needed for Nausea and Vomiting (N/V). ondansetron 2020-0 Yes [id number] 8mg Take 1 Univers (ZOFRAN 6-01 tablet by ity of ODT) 8 mg 00:00: mouth [place] disintegrat 00 every 8 Medic al ing tablet (eight) Branch hours as needed for Nausea and Vomiting (N/V). ondansetron 2020-0 Yes [id number] 8mg Take 1 Univers (ZOFRAN 6-01 tablet by ity of ODT) 8 mg 00:00: mouth [place] disintegrat 00 every 8 Medic al ing tablet (eight) Branch hours as needed for Nausea and Vomiting (N/V). ondansetron 2020-0 Yes [id number] 8mg Take 1 Univers (ZOFRAN 6-01 tablet by ity of ODT) 8 mg 00:00: mouth [place] disintegrat 00 every 8 Medic al ing tablet (eight) Branch hours as needed for Nausea and Vomiting (N/V). ondansetron 2020-0 Yes [id number] 8mg Take 1 Univers (ZOFRAN 6-01 tablet by ity of ODT) 8 mg 00:00: mouth [place] disintegrat 00 every 8 Medic al ing tablet (eight) Branch hours as needed for Nausea and Vomiting (N/V). ondansetron 2020-0 Yes [id number] 8mg Take 1 Univers (ZOFRAN 6-01 tablet by ity of ODT) 8 mg 00:00: mouth [place] disintegrat 00 every 8 Medic al ing tablet (eight) Branch hours as needed for Nausea and Vomiting (N/V). ondansetron 2020-0 Yes [id number] 8mg Take 1 Univers (ZOFRAN 6-01 tablet [...] Fri Branch 07/27/19 at 0215, Routine
membership sales manager approving Restricted medication : JAMIR MURGUIA HYDROcodone 2020-0 2020- No 1{tbl} 1 tablet, Univers -acetaminop 07-26 Oral, ONCE i ty of hen (NORCO) 07:15: 06:12 NOW, 1 Jose Angel as 10-325 mg 00 :00 dose, Fri Medic al tablet 1 07/27/19 at [facility] h tablet 0215, Routine iohexol 2019-0 2020- No 120mL 120 mL, Unive rs (OMNIPAQUE 07-26 Intravenou it y of 350 05:30: 05:11 s, ONCE, 1 [place] BULK-150 00 :00 dose, Fri Medica l mL) 07/27/19 at Branch injection 0030, 120 mL Routine FENTanyl PF 2019-0 2020- No 25ug 25 [...] (four) Branch tablet hours as needed. amoxicillin 2019-0 2020- No 500mg Take 500 Univers 500 mg 3-24 03-24 mg by ity of tablet 16:22: 00:00 mouth 3 [place] 19 :00 (three) Medical times Branch daily. ciprofloxac 2020-0 Yes [id number] 250mg Take 1 Univers in HCl 3-24 tablet by ity of (CIPRO) 250 00:00: mouth [place] mg tablet 00 every 12 Medica l (twelve) Branch hours. ciprofloxac 2020-0 Yes [id number] 250mg Take 1 Univers in HCl 3-24 tablet by ity of (CIPRO) 250 00:00: mouth [place] mg tablet 00 every 12 Medica l (twelve) Branch hours. ciprofloxac 2020-0 2020- No [id number] 250mg Take 1 Univers in HCl 3-24 [...] :00 Medical Branch clonazePAM 2020-0 2020- No [id number] .5mg Take 0.5 Univers (KLONOPIN) 1-14 01-14 mg by ity of 0.5 mg 22:32: 00:00 mouth as [place] tablet 53 :00 needed Medical (panic). Branch clonazePAM 2020-0 2020- No [id number] .5mg Take 0.5 Univers (KLONOPIN) 1-14 01-14 mg by ity of 0.5 mg 22:32: 00:00 mouth as [place] tablet 53 :00 needed Medical (panic). Branch naproxen 2018-05 2020- No [id number] 500mg Take 1 Univers (NAPROSYN) 0-28 - 9102 tablet by ity of 500 mg 00:00: 00:00 mouth 2 [place] tablet 00 :00 (two) Medical times Branch daily with meals. naproxen 2018-05 2020- No [id number] 500mg Take 1 Univers (NAPROSYN) 0-28 - 9102 tablet by ity of 500 mg 00:00: 00:00 mouth 2 [place] tablet 00 :00 (two) Medical times Branch daily with meals. methylPREDN 2018-05- No [id number] 84mg Take 21 Univers ISolone 0-25 - 9102 tablets by ity o f (MEDROL, 00:00: 00:00 mouth [place] LORENA,) 4 mg 00 :00 SEE-INSTRU Med ical tablets CTIONS. Branch follow package directions methylPREDN 2018-05- No [id number] 84mg Take 21 Univers ISolone 0-25 - 9102 tablets by ity o f (MEDROL, 00:00: 00:00 mouth [place] LORENA,) 4 mg 00 :00 SEE-INSTRU Med ical tablets CTIONS. Branch follow package directions venlafaxine 2019-0 Yes 150mg Take 150 U [...] capsule times Branch daily. HYDROcodone 2020- No [id number] 1{tbl} Take 1 Univers -acetaminop 9-26 05-14 tablet by it y of hen (NORCO) 00:00: 00:00 mouth [place] 10-325 mg 00 :00 every 6 Medical tablet (six) Branch hours as needed (pain). etodolac 2019- No [id number] 400mg Take 1 Univers 400 mg -26 05-14 tablet by ity of tablet 00:00: 00:00 mouth 2 [place] 00 :00 (two) Medical times Branch daily. HYDROcodone 2019- No [id number] 1{tbl} Take 1 Univers -acetaminop -26 05-14 tablet by it y of hen (NORCO) 00:00: 00:00 mouth [place] 10-325 mg 00 :00 every 6 Medical tablet (six) Branch hours as needed (pain). etodolac 2019- No [id number] 400mg Take 1 Univers 400 mg -26 05-14 tablet by ity of tablet 00:00: 00:00 [...] Immunizations Ordered Filled Immunization Date Status Comments [facility] e Immunization Name Name Influenza Virus 2019-01-24 Completed Universit y of Vaccine Quad .5 mL 00:00:00 [place] [facility] IM 6+ MO Branch Influenza Virus [...] Universit y of Vaccine Quad ID 00:00:00 [place] [facility] ical 18-64 YRS Branch Vital Signs Vital Name Observation Time Observation Value Comments Source Systolic blood 2019-11-22 20:14:00 138 mm[Hg] Univer sity of pressure [facility] Diastolic blood 2019-11-22 20:14:00 89 mm[Hg] Unive rsity of pressure [facility] Heart rate 2019-11-22 20:14:00 79 /min [facility] Respiratory rate 2019-11-22 20:14:00 18 /min [facility] Body height 2019-11-22 20:14:00 175.3 cm [facility] Body weight 2019-11-22 20:14:00 75.161 kg [facility] BMI 2019-11-22 20:14:00 24.47 kg/m2 [facility] Systolic blood 2019-10-03 18:29:00 129 mm[Hg] Univer sity of pressure [facility] Diastolic blood 2019-10-03 18:29:00 91 mm[Hg] Unive rsity of pressure [facility] Heart rate 2019-10-03 18:29:00 82 /min [facility] Respiratory rate 2019-10-03 18:29:00 16 /min Univ [facility] Oxygen saturation in 2019-10-03 18:29:00 98 /min [facility] blood by [facility] Pulse oximetry Branch Body temperature 2019-10-03 17:42:00 36 [facility] Body height 2019-10-02 21:38:00 175.3 cm Universi ty of [place] [facility] [place] Body weight 2019-10-02 21:38:00 68.493 kg Universi ty of [place] [facility] BMI 2019-10-02 21:38:00 22.30 kg/m2 Universi ty of [facility] Systolic blood 2019-07-27 06:00:00 147 mm[Hg] Univer sity of pressure [facility] Diastolic blood 2019-07-27 06:00:00 101 mm[Hg] Unive rsity of pressure [facility] Heart rate 2019-07-27 06:00:00 65 /min Universi ty of [facility] Respiratory rate 2019-07-27 06:00:00 24 /min [facility] Oxygen saturation in 2019-07-27 06:00:00 98 /min [facility] Arterial blood by [facility] Pulse oximetry Branch Body temperature 2019-07-27 02:51:00 36 Louise [facility] ersity of [facility] Body height 2019-07-27 02:51:00 172.7 cm Universi ty of [facility] Body weight 2019-07-27 02:51:00 68.04 kg Universi ty of [facility] BMI 2019-07-27 02:51:00 22.81 kg/m2 Universi ty of [facility] Systolic blood 2019-05-15 22:22:00 126 mm[Hg] Univer sity of pressure [facility] Diastolic blood 2019-05-15 22:22:00 78 mm[Hg] Unive rsity of pressure [facility] Heart rate 2019-05-15 22:22:00 63 /min Universi ty of [facility] Body temperature 2019-05-15 22:22:00 36.06 Louise Univ ersity of [facility] Body height 2019-05-15 22:22:00 172.7 cm Universi ty of [facility] Body weight 2019-05-15 22:22:00 76.658 kg Universi ty of [facility] BMI 2019-05-15 22:22:00 25.70 kg/m2 Universi ty of [facility] Procedures Procedure Date / Time Performing Clinician Source Performed US RETROPERITONEAL 2019-12-11 18:47:09 Dianna Morales y [facility] [place] [facility] COMPLETE [facility] Branch ASSIGNMENT OF BENEFITS 2019-12-11 18:05:01 Doctor Unassigned, Un iversity of [place] Medical Branch DISCLOSURE AND CONSENT, 2019-11-22 05:01:00 Doctor Unassigned, U [facility] MEDICAL AND SURGICAL [place] Medical [facility] PROCEDURES BASIC METABOLIC PANEL (NA, 2019-10-03 10:56:00 Tray Foreman U [facility] K, CL, CO2, GLUCOSE, BUN, Medica l Branch CREATININE, CA) CT ABDOMEN PELVIS W 2019-10-03 01:30:38 Gianna King [facility] CONTRAST Medical Branch XR CHEST 1 VW 2019-10-02 22:29:05 Tony [facility] LIPASE 2019-10-02 22:04:00 Tony [facility] MAGNESIUM 2019-10-02 22:04:00 Tony [facility] TROPONIN I 2019-10-02 22:04:00 Tony [facility] COMP. METABOLIC PANEL 2019-10-02 22:04:00 Rocky Jimenez [facility] ([id number]) [facility] CBC WITH DIFFERENTIAL 2019-10-02 22:04:[address] [facility] URINALYSIS 2019-10-02 22:04:00 Tony, [facility] NOTICE OF PRIVACY 2019-10-02 21:08:54 Doctor Unassigned, [facility] TROPONIN I 2019-07-27 03:18:00 Jamir Murguia [facility] COMP. METABOLIC PANEL 2019-07-27 03:18:00 Jamir Murguia [facility] ([id number]) [facility] CBC WITH DIFFERENTIAL 2019-07-27 03:18:00 Jamir Murguia [facility] PROTHROMBIN TIME / INR 2019-07-27 03:18:00 Jamir Murguia [facility] EKG-12 LEAD 2019-07-27 03:05:07 Jamir Murguia [facility] NOTICE OF PRIVACY 2019-07-27 02:45:41 Doctor Unassigned, [facility] [place] [facility] CONSENT/REFUSAL FOR 2019-07-27 02:45:26 Doctor Unassigned, Tony [facility] DIAGNOSIS AND TREATMENT [place] [facility] Encounters Start End Encounter Admission Attending Care Care Encounter Source Date/Time Date/Time Type Type Clinicians Facility Department ID 2020-05-20 2020-05-20 [facility] [id number] Univers 13:45:00 13:45:00 FAN [id number] ity [facility] 2020-05-20 2020-05-20 [facility] [id number] Univers 13:45:00 13:45:00 FAN [facility] 2020-03-21 2020-03-21 Telephone [facility] [id number] Univers 00:00:00 00:00:00 [facility] [id number] it y of [place] [id number] Jose Angel [facility] [id number] [place] dical [address] 2020-02-25 2020-02-25 [facility] [id number] Univers 13:00:00 13:00:00 JEFFRY [id number] ity [facility] 2020-02-25 2020-02-25 [facility]patient [facility] [id number] Univers 13:00:00 13:00:00 [facility] 2020-[facility]-11 2020-02-11 Out[facility] [id number] Univers 14:15:00 14:15:00 [id number] ity [facility] 2020-02-11 2020-02-11 Outpatient R [facility] [id number] Univers 14:15:00 14:15:00 ity of [facility] 2019-12-11 2019-12-11 [facility] [id number] Univers 13:06:41 23:59:00 Encounter Dianna Gant 350.1.13.10 ity of [place] 4.2.7.2.686 [facility] [phone] [facility] [address] 2019-12-11 2019-12-11 [facility] [id number] Univers 13:30:00 13:30:00 BILMA [id number] ity of [facility] 2019-12-11 2019-12-11 Outpatient Blake MORALES [facility] [id number] Univers 00:00:00 00:00:00 BILAL ity of [facility] 2019-12-11 2019-12-11 Orders Doctor VALENZUELA [id number] Univers 00:00:00 00:00:00 Only Unassigned, LIYAH 350.1.13.10 ity of [place] [facility] 4.2.7.2.686 Jose Angel as [id number] [facility] [address] 2019-11-22 2019-11-22 Office Andrew [facility] [id number] Univers 13:55:45 16:12:18 Visit Room, [facility] Uro Procedure HEALTH 350.1. 13.10 ity of [place] 4.2.7.2.686 [facility] [id number] [facility] Primary & [address] Specialty Care 2019-11-22 2019-11-22 Outpatient Blake MORALES [facility] [id number] Univers 14:30:00 14:30:00 BILMA [id number] ity of [facility] 2019-11-22 2019-11-22 [facility] [id number] Univers 14:30:00 14:30:00 BILAL ity of [facility] 2019-11-22 2019-11-22 Orders Doctor VALENZUELA 1.2.840.114 [id number] Univers 00:00:00 00:00:00 Only Unassigned, LIYAH 350.1.13.[address] [facility] 4.2.7.2.686 Jose Angel as [phone] [facility] [address] 2019-10-30 2019-10-30 [facility] [id number] Univers 10:30:00 10:30:00 BILMA ity of [facility] 2019-10-30 2019-10-30 [facility]patient [facility] [id number] Univers 10:30:00 10:30:00 BILAL ity [facility] 2019-10-30 2019-10-30 Telephone [facility] [id number] Univers 00:00:00 00:00:00 [facility] 350.1.13.10 it y of [place] 4.2.7.2.686 [facility] [id number] [facility] Primary & [address] [facility] 2019-10-04 2019-10-04 [facility] 1.2.840.114 [id number] Univers 00:00:00 00:00:00 [facility] 350.1.13.10 it y of [place] 4.2.7.2.[address] [facility] [phone] [facility] [address] Office Building One 2019-10-02 2019-10-03 Outpatient X [facility] [id number] Univers 16:24:24 14:59:00 [facility] ity [facility] 2019-10-02 2019-10-03 Emergency Tony Rocky Soleanibal U[place] 1.2.840. 114 [id number] Univers 16:24:24 14:59:00 Gianna King 350.1.13.10 ity of [facility] 4.2.7.[address] [place] [address] [id number] [place] [id number] Branch 2019-10-01 2019-10-01 Outpatient R [facility] [id number] Univers 11:20:00 11:20:00 [id number] ity of [facility] 2019-10-01 2019-10-01 [facility] [id number] Univers 11:20:00 11:20:00 TEJINDER ity [facility] 2019-07-26 2019-07-27 Emergency X [facility] [id number] Univers 21:46:01 01:27:00 FANYKILI ity [facility] 2019-07-26 2019-07-27 Emergency [facility] [id number] Univers 21:46:01 01:27:00 Jamir Gant 350.1.13.10 ity of [place] 4.2.7.2.686 [facility] [id number] [facility] [address] 2019-07-24 2019-07-24 Outpatient R LARRYELKA, [facility] [id number] Univers 11:15:00 11:15:00 FAN [id number] [facility] 2019-07-24 2019-07-24 Outpatient Blake KAUFFMAN [facility] [id number] Univers 11:15:00 11:15:00 FAN [facility] 2019-07-24 2019-07-24 Telemedici [facility] 1.2.840.114 [id number] Univers 08:15:25 08:30:25 ne Visit [facility] 350.1.13.10 i ty of [place] 4.2.7.2.686 Jose Angel as Professio [phone] [employer] [address] [place] [address] Office [facility] 2019-07-23 2019-07-23 Telephone [facility] 1.2.840.114 [id number] Univers 00:00:00 00:00:00 [facility] 350.1.13.10 it y of [place] 4.2.7.2.686 Jose Angel as Professio [phone] [address] [employer] Office Building [facility] 2019-06-26 2019-06-26 Outpatient Blake KAUFFMAN [facility] [id number] Univers 14:15:00 14:15:00 FAN [id number] [facility] 2019-06-26 2019-06-26 [facility] [id number] Univers 14:15:00 14:15:00 [facility] 2019-05-15 2019-05-15 Office [facility] 1.2.840.114 [id number] Univers 16:19:35 16:43:39 Visit [facility] 350.1.13.10 it y of [place] 4.2.7.2.686 Jose Angel as Professio [phone] [employer] Office Building One Results Test Description Test Test Results Result Source Time Comments Comments US RETROPERITONEAL 2019-12- HISTORY: History of [facility] 11 right-sided kidney [facility] 18:55:51 stone and S/P stone Branc h [...] October 2019 did not show any left kidneystone.[facility], Radiant Results Inft User - 12/11/2019 1:56 [...] Interpretation Comme nts NA (test code = 7543417892) 143 mmol/L 135-145 K (test code = 4876719139) 3.5 mmol/L 3.5-5 CL (test code = 3078005636) 114 mmol/L 98-108 H CO2 TOTAL (test code = 8266797959) 20 mmol/L 23-31 L AGAP (test code = 3956038131) 2-16 BUN (test code = 6184596623) 17 mg/dL 7-23 GLUCOSE (test code = 9430944842) 81 mg/dL 70-110 CREATININE (test code = 0.74 mg/dL 0.5-1.04 1182600622) CALCIUM (test code = 9985274099) 8.6 mg/dL 8.6-10.6 eGFR Calculation (Non- mL/min/1.73m2 Peruvian) (test code = 0349836723) eGFR Calculation ( mL/min/1.73m2 Peruvian) (test code = 5275676872) ISI (test code = ISI) Association of [...] tests). Lab Interpretation (test code = Abnormal 09566-0) [facility] W [id number] 02:16:24Impression: 1. ?A 0.4 cm obstructing stone [...] Superiorendplate compression deformity of T12 vertebral body. [facility] [id number] 01:03:00 Test Item Value Reference Range Interpretation Comments TROPONIN I (test <0.012 See_Comment [Automated code = 1604247681) message] The system which generated this result [...] ? Lab Interpretation Normal (test code = 59987-3) [facility] METABOLIC PANEL (79030)2019-10-03 00:52:00 Test Item Value Reference Range Interpretation Comments NA (test code = 140 mmol/L 135-145 8777746068) K (test code = 3.8 mmol/L 3.5-5 4939707795) CL (test code = 108 mmol/L 98-108 0630577724) CO2 TOTAL (test code = 24 mmol/L 23-31 1434840620) AGAP (test code = 2-16 9160217947) BUN (test code = 21 mg/dL 7-23 4290862226) GLUCOSE (test code = 99 mg/dL 70-110 7840794091) CREATININE (test code = 1.12 mg/dL 0.5-1.04 H 9462336692) TOTAL BILI (test code = 0.9 mg/dL 0.1-1.2 7048513324) CALCIUM (test code = 9.4 mg/dL 8.6-10.6 6807860400) T PROTEIN (test code = 7.4 g/dL 6.3-8.2 2103338487) ALBUMIN (test code = 4.5 g/dL 3.5-5 8270221947) ALK PHOS (test code = 95 U/L 34-122 6409659664) ALTv (test code = 14 U/L 5-35 1742-6) AST(SGOT) (test code = 26 U/L 13-40 2832322052) eGFR Calculation mL/min/1.73m2 (Non-) (test code = 2497384995) eGFR Calculation mL/min/1.73m2 () (test code = 6659389805) ISI (test code = ISI) Association of [...] tests). Lab Interpretation Abnormal (test code = 69146-8) [facility] 00:52:00 Test Item Value Reference Range Interpretation Comments MAGNESIUM (test code = 7786883190) 2.0 mg/dL 1.7-2.4 Lab Interpretation (test code = Normal 53896-3) [facility] 00:51:00 Test Item Value Reference Range Interpretation Comments APPEARANCE (test code = Hazy Clear A 7712139273) COLOR (test code = Lexi Yellow A 7417980386) PH (test code = 4.8-8.0 6080409023) SP GRAVITY (test code = 1.003-1.030 H 5216303065) GLU U QUAL (test code = Normal Normal 2895467189) BLOOD (test code = Negative Negative 7438252975) KETONES (test code = 5 mg/dL Negative A 7730199508) PROTEIN (test code = Negative Negative 2887-8) UROBILIN (test code = 2.0 mg/dL Normal A 2571792655) BILIRUBIN (test code = 2 mg/dL Negative A 8540548811) NITRITE (test code = Negative Negative 9861860224) LEUK SERG (test code = Negative Negative 2098305573) RBC/HPF (test code = <1 See_Comment [Autom ated message] 9660714782) The system [employer] generated this result transmit alysha reference range : 0 - 3 HPF. The refe rence range was not u sed to interpret th is result as normal/abnormal . WBC/HPF (test code = See_Comment [Autom ated message] 0600395521) The system whic h generated this result transmit alysha reference range : 0 - 5 HPF. The refe rence range was not u sed to interpret th is result as normal/abnormal . BACTERIA (test code = Few Negative A 6611236238) MUCOUS (test code = Moderate Negative LPF A 5559982700) SQ EPITH (test code = HPF 9983173686) Ictotest (test code = Negative 9378744711) Lab Interpretation (test Abnormal code = 39786-1) [facility] 00:51:00 Test Item Value Reference Range Interpretation Comments LIPASE (test code = 8774357129) 58 U/L 0-220 Lab Interpretation (test code = Normal 64389-6) [facility] WITH [id number] 00:27:00 Test Item Value Reference Range Interpretation Comments WBC (test code = See_Comment [Automated 9590-2) message] The sy stem which generated this result transmitted reference range : 4.30 - 11.10 10*3/?L. The reference range was not used to interpret this result as normal/abnormal . RBC (test code = See_Comment [Automated 919-8) message] The sy stem which generated this [...] RDW-SD (test code = 43.1 fL 39-49.9 44663-2) RDW-CV (test code = 12.3 % 12-15.5 788-0) PLT (test code = See_Comment [Automated 777-3) message] The sy stem which generated this result transmitted reference range : 166 - 358 10*3/ ?L. The reference r mima was not used to interpret this result as normal/abnormal . MPV (test code = 10.7 fL 9.5-12.9 54987-6) NRBC/100 WBC (test See_Comment [Automat ed code = 9233786141) message] The system which generated this result transmitted reference range : 0.0 - 10.0 /100 WBCs. The refer ence range was not u sed to interpret th is result as normal/abnormal . NRBC x10^3 (test code <0.01 See_Comment [Auto mated = 7200854162) message] The s ystem which generated this result transmitted reference range : 10*3/?L. The reference range was not used to interpret this result as normal/abnormal . GRAN MAT (NEUT) % 60.7 % (test code = 770-8) IMM GRAN % (test code 0.30 % = 6832683656) LYMPH % (test code = 27.7 % 736-9) MONO % (test code = 10.7 % 5905-5) EOS % (test code = 0.3 % 713-8) BASO % (test code = 0.3 % 706-2) GRAN MAT x10^3(ANC) 5.70 10*3/uL 1.88-7.09 (test code = 0828235117) IMM GRAN x10^3 (test 0.03 10*3/uL 0-0.06 code = 4515447353) LYMPH x10^3 (test code 2.60 10*3/uL 1.32-3.29 = 731-0) MONO x10^3 (test code 1.01 10*3/uL 0.33-0.92 H = 742-7) EOS x10^3 (test code = 0.03 10*3/uL 0.03-0.39 711-2) BASO x10^3 (test code 0.03 10*3/uL 0.01-0.07 = 704-7) Lab Interpretation Abnormal (test code = 22043-7) [facility] 1 [id number] 23:48:43 No acute cardiopulmonary abnormality. Preliminary Report [...] reviewed this study and agree with theabove report.[facility] WITH DIFFERENTIAL 2019-07-27 04:09:00 Test Item Value Reference Range Interpretation Comments WBC (test code = See_Comment [Automated 6690-2) message] The sy stem which generated this result transmitted reference range : 4.30 - 11.10 10*3/?L. The reference range was not used to interpret this result as normal/abnormal . RBC (test code = See_Comment L [Automated 479-8) message] The sy stem which generated this [...] RDW-SD (test code = 45.1 fL 39-49.9 41651-1) RDW-CV (test code = 13.0 % 12-15.5 788-0) PLT (test code = See_Comment [Automated 777-3) message] The sy stem which generated this result transmitted reference range : 166 - 358 10*3/ ?L. The reference r mima was not used to interpret this result as normal/abnormal . MPV (test code = 9.6 fL 9.5-12.9 51417-7) NRBC/100 WBC (test See_Comment [Automat ed code = 8763166300) message] The system which generated this result transmitted reference range : 0.0 - 10.0 /100 WBCs. The refer ence range was not u sed to interpret th is result as normal/abnormal . NRBC x10^3 (test code <0.01 See_Comment [Auto mated = 3211689249) message] The s ystem which generated this result transmitted reference range : 10*3/?L. The reference range was not used to interpret this result as normal/abnormal . GRAN MAT (NEUT) % 33.8 % (test code = 770-8) IMM GRAN % (test code 0.20 % = 5030161055) LYMPH % (test code = 50.5 % 736-9) MONO % (test code = 12.4 % 5905-5) EOS % (test code = 2.5 % 713-8) BASO % (test code = 0.6 % 706-2) GRAN MAT x10^3(ANC) 1.61 10*3/uL 1.88-7.09 L (test code = 2960884021) IMM GRAN x10^3 (test <0.03 0-0.06 code = 4165547675) LYMPH x10^3 (test code 2.41 10*3/uL 1.32-3.29 = 731-0) MONO x10^3 (test code 0.59 10*3/uL 0.33-0.92 = 742-7) EOS x10^3 (test code = 0.12 10*3/uL 0.03-0.39 711-2) BASO x10^3 (test code 0.03 10*3/uL 0.01-0.07 = 704-7) Lab Interpretation Abnormal (test code = 32352-2) [facility] [id number] 03:52:00 Test Item Value Reference Range Interpretation Comments TROPONIN I (test 0.001 ng/mL See_Comment [Automated code = 7963466702) message] The system which generated this result [...] ? Lab Interpretation Normal (test code = 04528-3) [facility] METABOLIC PANEL (98786)2019-07-27 03:41:00 Test Item Value Reference Range Interpretation Comments NA (test code = 142 mmol/L 135-145 5879186238) K (test code = 4.0 mmol/L 3.5-5 0114106346) CL (test code = 111 mmol/L 98-108 H 6111330384) CO2 TOTAL (test code = 26 mmol/L 23-31 1986353230) AGAP (test code = 2-16 8833779864) BUN (test code = 14 mg/dL 7-23 8625089532) GLUCOSE (test code = 96 mg/dL 70-110 9184653164) CREATININE (test code = 0.96 mg/dL 0.5-1.04 0403074358) TOTAL BILI (test code = 0.1 mg/dL 0.1-1.8 3874229400) CALCIUM (test code = 8.6 mg/dL 8.6-10.6 8168950665) T PROTEIN (test code = 6.3 g/dL 6.3-8.2 1229682014) ALBUMIN (test code = 3.7 g/dL 3.5-5 1071676250) ALK PHOS (test code = 85 U/L 34-122 4737508529) ALTv (test code = 16 U/L 5-35 1742-6) AST(SGOT) (test code = 18 U/L 13-40 0715006993) eGFR Calculation mL/min/1.73m2 (Non-) (test code = 9690189794) eGFR Calculation mL/min/1.73m2 () (test code = 0392340549) ISI (test code = ISI) Association of [...] tests). Lab Interpretation Abnormal (test code = 00698-1) [facility] / [id number] 03:34:00 Test Item Value Reference Range Interpretation Comments PROTIME PATIENT (test See_Comment [Auto mated message] code = 5964-2) The system [id number] generated this result transmitted ref erence range: 12.0 - 1 4.7 Seconds. The re ference range was not u sed to interpret this result as normal/abnor mal. INR (test code = 6301-6) Nor mal INR <1.1; Warfarin Therap eutic range 2.0 to 3. 0 or 2.5 to 3.5, dep ending upon the indica tions. Lab Interpretation (test Normal code = 83285-0) [facility]"
--- NOTE | 2021-12-11 13:46 | RAD REPORT ---
EXAM DESCRIPTION: RAD - Chest Single View - 12/11/2021 1:37 pm CLINICAL HISTORY: CHEST PAIN COMPARISON: Portable 04/12/2021 TECHNIQUE: AP portable chest image was obtained 12/11/2021 1:37 pm . FINDINGS: No focal mass, consolidation or failure finding. Interstitial markings are prominent but n ot clearly different. Heart and vasculature are normal. No measurable pleural effusion and no pneumothorax. No acute bony abnormality seen. No acute aortic findings suspected. IMPRESSION: No acute cardiopulmonary process. No significant change from comparison.
[2021-12-11 14:00] LABS: Absolute Lymphocytes (CBC) 1.2 K/uL (0.7-4.9); Hematocrit 36.1 % (36.0-45.0); Lymphocytes % 13.7 % (15.3-44.8); MCV 95.2 fL (80-100); MPV 8.4 fL (7.6-11.3)
[2021-12-11 14:10] LABS: SARS-CoV-2 Antigen Rapid Res Negative (Negative)
[2021-12-11 14:24] LABS: Albumin 3.5 g/dL (3.4-5.0); Bilirubin Direct 0.2 mg/dL (0-0.2); Bilirubin Total 0.8 mg/dL (0.2-1.0); Potassium 3.7 mmol/L (3.5-5.1); Protein, Total 7.1 g/dL (6.4-8.2); Troponin High Sensitivity 4.3 pg/mL (<58.9)
--- NOTE | 2021-12-11 15:10 | EDPHYS ---
Physician Documentation [facility] Name: Sydni Verma [place] Age: 66 yrs Sex: Female : 1955 Arrival Date: 12/11/2021 Time: 12:45 Bed 14 Private MD: ED Physician Ramiro Malin HPI: 12/11 13:02 This 66 yrs old Female presents to ER via Ambulatory with complaints of Chest Tightness.jr11 13:02 The patient or guardian reports chest pain that is located primarily in the substernal jr11 area. Onset: >8hrs, started after cipro. Pt also on toradol, ultram and zofran all which she had before. The pain does not radiate. Associated signs and symptoms: The patient has no apparent associated signs or symptoms. The chest pain is described as aching, a heaviness. Duration: The patient or guardian reports a single episode, >8 hrs, non exertional . Modifying factors: The symptoms are alleviated by nothing. the symptoms are aggravated by nothing. Severity of pain: At its worst the pain was mild in the emergency department the pain is unchanged. Patient is a 66-year-old female with risk factors that include smoking and her age here with a chest ache that is been greater than 8 hours, across her chest into the left side, does not cross the diaphragm not described as tearing does not radiate to the back. No syncope. No recent risk stratification. Historical: - Allergies: 12:53 Bactrim; jl7 12:53 E.E.S. 400; jl7 - Home Meds: 12:53 None [Active]; jl7 - PMHx: 12:53 None; jl7 - PSHx: 12:53 Total abdominal hysterectomy; jl7 - Immunization history:: Client reports receiving the 2nd dose of the Covid vaccine. - Social history:: Smoking status: Patient reports the use of cigarette tobacco products, smokes one-half pack cigarettes per day. ROS: 13:02 All other systems are negative. jr11 Exam: 13:02 Constitutional: This is a well developed, well nourished patient who is awake, alert, jr11 and in no acute distress. Head/Face: Normocephalic, atraumatic. Eyes: Extra-ocular motions intact. Lids and lashes normal. Conjunctiva and sclera are non-icteric and not injected. Cornea within normal limits. Periorbital areas with no swelling, redness, or edema. ENT: Nares patent. No nasal discharge, no septal abnormalities noted. Oropharynx with no redness, swelling, or masses, exudates, or evidence of obstruction, uvula midline. Mucous membranes moist. Neck: Trachea midline, no thyromegaly or masses palpated, and no cervical lymphadenopathy. Supple, full range of motion without nuchal rigidity, or vertebral point tenderness. No Meningismus. Chest/axilla: Normal chest wall appearance and motion. Nontender with no deformity. No lesions are appreciated. Cardiovascular: Regular rate and rhythm with a normal S1 and S2. No gallops, murmurs, or rubs. Normal PMI, no JVD. No pulse deficits. Respiratory: Lungs have equal breath sounds bilaterally, clear to auscultation and percussion. No rales, rhonchi or wheezes noted. No increased work of breathing, no retractions or nasal flaring. Abdomen/GI: Soft, non-tender, with normal bowel sounds. No distension or tympany. No guarding or rebound. No evidence of tenderness throughout. Skin: Warm, dry with normal turgor. Normal color with no rashes, no lesions, and no evidence of cellulitis. MS/ Extremity: Pulses equal, no cyanosis. Neurovascular intact. Full, normal range of motion. Neuro: Awake and alert, GCS 15, oriented to person, place, time, and situation. No gross motor or sensory deficits. Vital Signs: 12:52 Weight 63.5 kg; Height 5 ft. 8 in. (172.72 cm); Pain 6/10; jl7 12:56 BP 147 / 72; Pulse 71; Resp 18; Pulse Ox 100% on R/A; Pain 0/10; ss 14:00 BP 142 / 82; Pulse 56; Resp 20; Pain 7/10; kb3 16:00 BP 140 / 80; Pulse 59; Resp 18; Pulse Ox 99% ; Pain 2/10; kb3 12:52 Body Mass Index 21.29 (63.50 kg, 172.72 cm) jl7 MDM: 12:48 Patient medically screened. jr11 13:02 Data reviewed: vital signs, nurses notes. ED course: EKG interpreted by me shows sinus jr11 bradycardia, normal axis, normal intervals, no acute ST changes, patient feels that the pain started after Cipro, given trace leuk esterase no leukocytosis no fever no chills no burning on urination, will asked to stop the Cipro for now.. 13:42 HEART Score: History: Slightly Suspicious (0), ECG: Normal (0), Age: > 45 and < [address] [facility] years (1), Risk Factors: 1 or 2 risk factors (1), [Active Smoker] [Obesity] Troponin: < or = 1 x Normal Limit (0), Total Score = 3. The patient was not given aspirin in the Emergency Department. Not indicated due to patient's past medical history. 15:08 ED course: Pt with HEART <3, no PE findings CHF, will f/u OP cards. 12/11 12:59 Order name: Basic Metabolic Panel; Complete Time: 14:25 [facility] 12/11 12:59 Order name: CBC with Diff; Complete Time: 14:11 [facility] 12/11 12:59 Order name: D-Dimer; Complete Time: 14: [facility] 12/11 12:59 Order name: LFT's; Complete Time: 14:25 [facility] 12/11 12:59 Order name: NT PRO-BNP; Complete Time: 14:25 [facility] 12/11 12:59 Order name: Troponin HS; Complete Time: 14:25 [facility] 12/11 12:59 Order name: XRAY Chest (1 view); Complete Time: 13:53 12/11 12:59 Order name: EKG; Complete Time: 13:01 [facility] 12/11 12:59 Order name: Cardiac monitoring; Complete Time: 13:00 [facility] 12/11 12:59 Order name: EKG - Nurse/Tech; Complete Time: 13:00 12/11 12:59 Order name: IV Saline Lock; Complete Time: 13:06 12/11 12:59 Order name: Labs collected and sent; Complete Time: 13:33 [facility] 12/11 12:59 Order name: O2 Per Protocol; Complete Time: 13:00 12/11 13:00 Order name: SARS RAPID; Complete Time: 14:11 12/11 12:59 Order name: O2 Sat Monitoring; Complete Time: 13:00 [facility] Administered Medications: No medications were administered Disposition Summary: 12/11/21 15:09 Discharge Ordered Location: Home jr Condition: Stable jr11 Diagnosis - Chest pain, unspecified jr11 Followup: jr11 - With: Dario Emanuel MD - When: 1 - 2 days - Reason: Worsening of condition Discharge Instructions: - Discharge Summary Sheet jr11 - Nonspecific Chest Pain, Adult jr11 Forms: - Medication Reconciliation Form jr11 - Thank You Letter jr11 - Antibiotic Education jr11 - Prescription Opioid Use jr11 Signatures: Dispatcher [employer] Ada Alfredo RN RN jl7 Ramiro Malin MD MD jr11
--- NOTE | 2021-12-11 15:10 | ER ---
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 Coronavirus screen: At this time, the client does not indicate any symptoms associated with coronavirus-19. Ebola Screen: No symptoms or risks identified at this time. Risk Assessment: Do you want to hurt yourself or someone else? Patient reports no desire to harm self or others. Onset of symptoms was December 10, 2021. 12:52 Method Of Arrival: Ambulatory jl7 12:52 Acuity: BRODY 2 jl7 13:00 Initial Sepsis Screen: Does the patient meet any 2 criteria? No. Patient's initial kb3 sepsis screen is negative. Does the patient have a suspected source of infection? No. Patient's initial sepsis screen is negative. Triage Assessment: 12:53 General: Appears in no apparent distress. uncomfortable, Behavior is cooperative, jl7 anxious. Pain: Complains of pain in anterior aspect of left upper chest Pain currently is 6 out of 10 on a pain scale. Cardiovascular: Patient's skin is warm and dry. Historical: - Allergies: 12:53 Bactrim; jl7 12:53 E.E.S. 400; jl7 - Home Meds: 12:53 None [Active]; jl7 - PMHx: 12:53 None; jl7 - PSHx: 12:53 Total abdominal hysterectomy; jl7 - Immunization history:: Client reports receiving the 2nd dose of the Covid vaccine. - Social history:: Smoking status: Patient reports the use of cigarette tobacco products, smokes one-half pack cigarettes per day. Screenin:15 Abuse screen: Denies threats or abuse. Denies injuries from another. Nutritional kb3 screening: No deficits noted. Tuberculosis screening: No symptoms or risk factors identified. Fall Risk None identified. No fall in past 12 months (0 pts). Secondary diagnosis (15 points) No IV (0 pts). Ambulatory Aid- None/Bed Rest/Nurse Assist (0 pts). Gait- Normal/Bed Rest/Wheelchair (0 pts) Mental Status- Oriented to own ability (0 pts). Total Phillips Fall Scale indicates No Risk (0-24 pts). Assessment: 13:15 Reassessment: No changes from previously documented assessment. Pain: Complains of pain kb3 in diaphragm and left breast Pain does not radiate. Pain currently is 5 out of 10 on a pain scale. Quality of pain is described as pressure, "fullness" Pain began 1 day ago. Is continuous. 15:00 General: Pt reports that the only discomfort she is now experiencing is RLQ related to kb3 kidney stone that was diagnosed yesterday. Pt reports no chest discomfort at this time. Vital Signs: 12:52 Weight 63.5 kg; Height 5 ft. 8 in. (172.72 cm); Pain 6/10; jl7 12:56 BP 147 / 72; Pulse 71; Resp 18; Pulse Ox 100% on R/A; Pain 0/10; ss 14:00 BP 142 / 82; Pulse 56; Resp 20; Pain 7/10; kb3 16:00 BP 140 / 80; Pulse 59; Resp 18; Pulse Ox 99% ; Pain 2/10; kb3 12:52 Body Mass Index 21.29 (63.50 kg, 172.72 cm) jl7 ED Course: 12:45 Patient arrived in ED. mr 12:46 Ramiro Malin MD is Attending Physician. jr11 12:53 Triage completed. jl7 12:53 Arm band placed on right wrist. jl7 13:05 Justine Fuentes, RN is Primary Nurse. kb3 13:15 Patient has correct armband on for positive identification. Bed in low position. Call kb3 light in reach. Adult w/ patient. Client placed on continuous cardiac and pulse oximetry monitoring. NIBP monitoring applied. monitoring and evaluation advisor on. Pulse ox on. NIBP on. 13:15 No provider procedures requiring assistance completed. Patient maintains SpO2 kb3 saturation greater than 95% on room air. 13:33 Basic Metabolic Panel Sent. kb3 13:33 CBC with Diff Sent. kb3 13:33 D-Dimer Sent. kb3 13:33 LFT's Sent. kb3 13:33 NT PRO-BNP Sent. kb3 13:33 Troponin HS Sent. kb3 13:39 XRAY Chest (1 view) In Process Unspecified. EDMS 15:11 Dario Emanuel MD is Referral Physician. jr11 16:22 Patient did not have IV access during this emergency room visit. kb3 Administered Medications: No medications were administered Medication: 13:15 VIS not applicable for this client. kb3 Outcome: 15:09 Discharge ordered by . jr11 16:21 Discharged to home ambulatory, with family. kb3 16:21 Condition: improved 16:21 Discharge instructions given to patient, Instructed on discharge instructions, follow up and referral plans. medication usage, Demonstrated understanding of instructions, medications. 16:24 Patient left the ED. kb3 Signatures: Dispatcher [employer] EDIN Vilma Rodriguez mr Leslee Oneal, RN RN ss Ada Casillas RN RN jl7 Ramiro Malin MD MD jr11 Justine Fuentes, RN RN kb3
[2021-12-11 17:43] VITALS: BP 140/80; O2SAT 99
== END 2021-12-11 16:24 | disposition home or self-care (01) ==
LOC: ER 12:43
DX: R07.89 Other chest pain (principal); F17.210 Nicotine dependence, cigarettes, uncomplicated; Z20.822 Contact with and (suspected) exposure to COVID-19; Z88.1 Allergy status to other antibiotic agents
CPT/HCPCS: 36415; 71045; 80048; 80076; 83880; 84484; 85025; 85379; 87811; 93005; 99284

== ENCOUNTER 2023-03-15 13:08 | Observation (INO) | payer OTHER ==
--- OUTSIDE RECORDS SUMMARY | 2023-03-15 13:14 | XMS REPORT | Continuity of Care Document ---
:[address] [facility] t Address [address] [facility]. [address] [place] [address] Care Team Providers Name Role Phone FAN KAUFFMAN Primary Care Physician Unavailable Venus Leavitt Attending Clinician Unavailable FAN KAUFFMAN Attending Clinician Unavailable Fan Kauffman MD Attending Clinician JEFFRY HILL Attending Clinician Unavailable Dianna Morales MD Attending Clinician DIANNA MORALES Attending Clinician Unavailable Doctor Unassigned, Angels Attending Clinician Unavailable Room, Jose Angel Uro Procedure Attending Clinician Unavailable Tony Rocky APARICIO Attending Clinician Gianna Agosto Attending Clinician TEJINDER ESPINO Attending Clinician Unavailable JAMIR MURGUIA Attending Clinician Unavailable Jamir Murguia MD Attending Clinician DIANNA MORALES Admitting Clinician Unavailable Dianna Morales MD Admitting Clinician JAMIR MURGUIA Admitting Clinician Unavailable Payers Payer Name Policy Type Policy Number Effective Date Expiration Date Silvia smith [employer] 6 [id number] Common Spiri t Blue Shield - [facility] [id number] 2017 2020 - OUT OF 00:00:00 00:00:00 STATE Problems Condition Condition Condition Status Onset Resolution Last Treating Co mments Source Name Details Category Date Date Treatment Clinician Date Ureteral Ureteral Disease Active Unive rs stone stone 10-02 ity of 00:00: [place] 00 Medical Branch Urinary Urinary Disease Active Overview: Univ ers tract tract 10-01 Added ity of infection infection 00:00: automatic [place] without without 00 ally from Medic al hematuria, hematuria, request B ranch site site for unspecifie unspecifie surgery d d [id number] Bronchitis Bronchitis Disease Active 2016-05 U nivers [...] Disease Active 2014-05 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 obstructio St n due to 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 - [facility] c pain [facility] [id number] Left flank Problem Co mmon pain Spirit - [facility] [id number] Nicotine Problem Commo n dependence Spirit , - [facility] cigarettes [facility] uncomplica Medica l [facility] [id number] Left Problem Common retinal Spirit detachment - [facility] [id number] Torus Problem Common mandibular Spirit is - [facility] Allergies, Adverse Reactions, Alerts Allergy Allergy Status Severity Reaction(s) Onset Inactive Treating Comm ents Source Name Type Date Date Clinician CLINDAMY DRUG Active Swelling 2020-0 Univer s RUBY INGREDI - ity of 00:00: [place] 00 Medical Branch Clindamy Propensi Active Swelling 2020-0 Univ ers ruby ty to 09-30 ity of adverse 00:00: [place] reaction 00 Medical s Branch sulfamet sulfamet Active Unknown Commo n hoxazole hoxazole Spirit / / - [facility] trimetho trimetho [facility] amoxicil amoxicil Active Unknown Commo n meredith meredith Spirit - [facility] Sulfona Sulfona Active Unknown Commo n mide mide Spirit (substan (substan - [facility] ce) ce) [facility] NO KNOWN Drug Active Univers ALLERGIE Class ity of S [facility] Social History Social Habit Start Date Stop Date Quantity Comments Source Exposure to Not sure Allred of SARS-CoV-2 (event) [facility] Sexual orientation Method ist Hospital History of Tobacco Common Spirit - Use [facility] Tobacco use and 2019-11-22 2019-11-22 Never used Universit y of exposure 00:00:00 00:00:[address] [facility] Cigarettes smoked 2019-11-22 2019-11-22 Univers ity of current (pack per 00:00:00 00:00:00 ) - Reported Branch Cigarette 2019-11-22 2019-11-22 University of pack-years 00:00:00 00:00:[address] [facility] Tobacco Comment 2017-01-11 2017-01-11 0.5 pack weekly Univ ersity of 00:00:00 00:00:[address] [facility] History of Social 2016-11-01 2016-11-[address] function 00:00:00 00:00:00 Hospital Alcohol intake 2016-03-19 2016-03-19 Current drinker Metho dist 00:00:00 00:00:00 of alcohol Hospital (finding) Alcohol Comment 2016-03-19 2016-03-19 less than 6 Methodis t 00:00:00 00:00:00 drinks per week Hospital Sex Ass[birth year] At [birth year] [employer] 00:00:00 00:00:00 Hospital Smoking Status Start Date Stop Date Source Former Smoker 2022-03-10 00:00:00 2022-03-10 [facility]00[facility] 2022-01-11 00:00:00 Common Spiri [facility] Medications Ordered Filled Start Stop Current Ordering Indication Dosage Frequency Signature Comments Components Source Medication Medication Date Date Medication? Clinician (SIG) Name Name Gabapentin Gabapentin 0 No 1{capsu QD Gabapentin 100 MG 100 MG 4-11 le} 100 MG 00:00: 00 Gabapentin Gabapentin 2021-0 No 1{capsu QD Gabapentin 100 MG 100 MG 4-11 le} 100 MG 00:00: 00 Gabapentin Gabapentin 2021-0 No 1{capsu QD Gabapentin 100 MG 100 MG 4-11 le} 100 MG 00:00: 00 Gabapentin Gabapentin 2021-0 No 1{capsu QD Gabapentin 100 MG 100 MG 4-11 le} 100 MG 00:00: 00 Gabapentin Gabapentin 2021-0 No 1{capsu QD Gabapentin 100 MG 100 MG 4-11 le} 100 MG 00:00: 00 Gabapentin Gabapentin 2021-0 No 1{capsu QD Gabapentin 100 MG 100 MG 4-11 le} 100 MG 00:00: 00 eletriptan 2020-1 2020- No [id number] 40mg Take 1 Univers 40 mg 1-20 11-21 tablet by ity of tablet 00:00: 05:59 mouth [place] 00 :00 now for 1 Medical dose. May Branch repeat in 2 hours if necessary tamsulosin 2020-0 Yes [id number] .4mg Take 1 U nivers 0.4 mg 24 6-04 capsule by ity of hr capsule 00:00: mouth [place] 00 daily. Medical Branch tamsulosin 2020-0 Yes [id number] .4mg Take 1 U nivers 0.4 mg 24 6-04 capsule by ity of hr capsule 00:00: mouth [place] 00 daily. Medical Branch tamsulosin 2020-0 Yes [id number] .4mg Take 1 U nivers 0.4 mg 24 6-04 capsule by ity of hr capsule 00:00: mouth [place] 00 daily. Medical Branch tamsulosin 2020-0 Yes [id number] .4mg Take 1 U nivers 0.4 mg 24 6-04 capsule by ity of hr capsule 00:00: mouth [place] 00 daily. Medical Branch tamsulosin 2020-0 Yes [id number] .4mg Take 1 U nivers 0.4 mg 24 6-04 capsule by ity of hr capsule 00:00: mouth [place] 00 daily. Medical Branch tamsulosin 2020-0 Yes [id number] .4mg Take 1 U nivers 0.4 mg 24 6-04 capsule by ity of hr capsule 00:00: mouth [place] 00 daily. Medical Branch tamsulosin 2020-0 Yes [id number] .4mg Take 1 U nivers 0.4 mg 24 6-04 capsule by ity of hr capsule 00:00: mouth [place] 00 daily. Medical Branch tamsulosin 2020-0 Yes [id number] .4mg Take 1 U nivers 0.4 mg 24 6-04 capsule by ity of hr capsule 00:00: mouth [place] 00 daily. Medical Branch tamsulosin 2020-0 Yes [id number] .4mg Take 1 U nivers 0.4 mg [...] No 1{tbl} Take 1 U nivers en-codeine 10-02- tablet by ity of (TYLENOL-CO 17:31: 00:00 [...] Yes 300mg 300 mg, Uni vers (NEURONTIN) 03 Oral, TID, it y of capsule 300 13:00: First dose [place] mg 00 on Tue Medical 10/03/19 at Branch 0800, Until Discontinu ed, Routine acetaminoph 2019-0 Yes 650mg 650 mg, Un rickey en 03 Oral, Q6H, ity of (TYLENOL) 11:00: First [place] tablet 650 00 on Tue Medical mg 10/03/19 at Branch 0600, Until Discontinu ed, Routine NaCl 0.9% 2020-0 Yes IV Univers (NS) IV 10-02 Infusion, ity of infusion 06:15: at 100 [place] 00 mL/hr, Medical CONTINUOUS Branch , Starting Tue10/03/19 at 0115, Until Discontinu ed, Routine ketorolac 2019-0 Yes 30mg 30 mg, Univer s (TORADOL) 10-02 Slow IV ity of injection 06:12: Push, [place] 30 mg 24 Q8HPRN, 3 Medical doses, Branch Starting Tue10/03/19 at 0112, Until Discontinu ed, Routine, Pain (scale 7-10)
F aculty member approving Restricted medication : DIANNA MORALES cefTRIAXone 2020- No 1000mg 1,000 mg, Univers (ROCEPHIN) 10-02 IV ity of 1,000 mg in 04:30: 03:58 Piggyback, [place] NaCl 0.9% 00 :00 ONCE, 1 Medical (NS) 50 mL dose, [facility] ch MINI-BAG 10/02/19 at 2330, 50 mL
Reas on for Anti-Infec tive: Documented Infection< br>Documen alysha Infection Site: Urine
D uration of Therapy: Other (see Comments) ketorolac 2019-0 2020- No 30mg 30 mg, Unive rs (TORADOL) 10-02-03 Slow IV ity of injection 04:30: 03:28 Push, [place] 30 mg 00 :00 ONCE, 1 Medical dose, [facility] 10/02/19 at 2330, IAM
Fa culty member approving Restricted medication : GIANNA KING morpHINE 2019-0 2020- No 4mg 4 mg, Slow Un rickey injection 4 10-02 06-03 IV Push, ity of mg 04:15: 03:06 ONCE, 1 [place] 00 :00 dose, [facility] Medical 10/02/19 at Branch 2315, STAT NaCl 0.9% 2020-0 2020- No 1000mL at 999 Uni vers (NS) bolus 6-03 06-03 mL/hr, ity of infusion 01:30: 01:33 1,000 mL, Jose Angel as 1,000 mL 00 :00 IV Medical Infusion, Branch ONCE, 1 dose, 10/02/19 at 2030, STAT iohexol 2020-0 2020- No 120mL 120 mL, Unive rs (OMNIPAQUE 6- 06-03 Intravenou it y of 350 01:25: 01:25 s, ONCE, 1 [place] BULK-150 00 :00 dose, Tue Medica l mL) 10/02/19 at Branch injection 5, 120 mL Routine gabapentin 2020-0 Yes [id number] 300mg Take 1 Univers 300 mg 6-03 capsule by ity of capsule 00:00: mouth 3 [place] 00 (three) Medical times Branch daily. ketorolac 2020-0 Yes [id number] 10mg Take 1 Un rickey 10 mg 6-03 tablet by ity of tablet 00:00: mouth [place] 00 every 8 Medical (eight) Branch hours as needed for Pain (scale 7-10). gabapentin 2020-0 Yes [id number] 300mg Take 1 Univers 300 mg 6-03 capsule by ity of capsule 00:00: mouth 3 (three) Medical times Branch daily. ketorolac 2020-0 Yes [id number] 10mg Take 1 Un rickey 10 mg 6-03 tablet by ity of tablet 00:00: mouth [place] 00 every 8 Medical (eight) Branch hours as needed for Pain (scale 7-10). gabapentin 2020-0 Yes [id number] 300mg Take 1 Univers 300 mg 6-03 capsule by ity of capsule 00:00: mouth 3 [place] (three) Medical times Branch daily. ketorolac 2020-0 Yes [id number] 10mg Take 1 Un rickey 10 mg 6-03 tablet by ity of tablet 00:00: mouth [place] 00 every 8 Medical (eight) Branch hours as needed for Pain (scale 7-10). gabapentin 2020-0 Yes [id number] 300mg Take 1 Univers 300 mg 6-03 capsule by ity of capsule 00:00: mouth 3 [place] 00 (three) Medical times Branch daily. ketorolac 2020-0 Yes [id number] 10mg Take 1 Un rickey 10 mg 6-03 tablet by ity of tablet 00:00: mouth [place] 00 every 8 Medical (eight) Branch hours as needed for Pain (scale 7-10). gabapentin 2020-0 Yes [id number] 300mg Take 1 Univers 300 mg 6-03 capsule by ity of capsule 00:00: mouth 3 00 (three) Medical times Branch daily. ketorolac 2020-0 Yes [id number] 10mg Take 1 Un rickey 10 mg 6-03 tablet by ity of tablet 00:00: mouth [place] 00 every 8 Medical (eight) Branch hours as needed for Pain (scale 7-10). gabapentin 2020-0 Yes [id number] 300mg Take 1 Univers 300 mg 6-03 capsule by ity of capsule 00:00: mouth 3 00 (three) Medical times Branch daily. ketorolac 2020-0 Yes [id number] 10mg Take 1 Un rickey 10 mg 6-03 tablet by ity of tablet 00:00: mouth [place] 00 every 8 Medical (eight) Branch hours as needed for Pain (scale 7-10). gabapentin 2020-0 Yes [id number] 300mg Take 1 Univers 300 mg 6-03 capsule by ity of capsule 00:00: mouth (three) Medical times Branch daily. ketorolac 2020-0 Yes [id number] 10mg Take 1 Un rickey 10 mg 6-03 tablet by ity of tablet 00:00: mouth [place] 00 every 8 Medical (eight) Branch hours as needed for Pain (scale 7-10). gabapentin 2020-0 Yes [id number] 300mg Take 1 Univers 300 mg 6-03 capsule by ity of capsule 00:00: mouth 3 (three) Medical times Branch daily. ketorolac 2020-0 Yes [id number] 10mg Take 1 Un rickey 10 mg 6-03 tablet by ity of tablet 00:00: mouth [place] 00 every 8 Medical (eight) Branch hours as needed for Pain (scale 7-10). gabapentin 2020-0 Yes [id number] 300mg Take 1 Univers 300 mg 6-03 capsule by ity of capsule 00:00: mouth 3 [place] 00 (three) Medical times Branch daily. ketorolac 2020-0 Yes [id number] 10mg Take 1 Un rickey 10 mg 6-03 tablet by ity of tablet 00:00: mouth [place] 00 every 8 Medical (eight) Branch hours as needed for Pain (scale 7-10). acetaminoph 2019-2020- No [id number] 650mg Take 2 Univers en 325 mg 6-03 06-04 tablets by ity of tablet 00:00: 04:59 mouth [place] 00 :00 every 6 Medical (six) Branch hours. acetaminoph 2020- No [id number] 650mg Take 2 Univers en 325 mg 6-03 06-04 tablets by ity of tablet 00:00: 04:59 mouth [place] 00 :00 every 6 Medical (six) Branch hours. acetaminoph 2020- No [id number] 650mg Take 2 Univers en 325 mg 6-03 06-04 tablets by ity of tablet 00:00: 04:59 mouth [place] 00 :00 every 6 Medical (six) Branch hours. acetaminoph 2020- No [id number] 650mg Take 2 Univers en 325 mg 6-03 06-04 tablets by ity of tablet 00:00: 04:59 mouth [place] 00 :00 every 6 Medical (six) Branch hours. acetaminoph 2020- No [id number] 650mg Take 2 Univers en 325 mg 6-03 06-04 tablets by ity of tablet 00:00: 04:59 mouth [place] 00 :00 every 6 Medical (six) Branch hours. acetaminoph 2020- No [id number] 650mg Take 2 Univers en 325 mg 6-03 06-04 tablets by ity of tablet 00:00: 04:59 mouth [place] 00 :00 every 6 Medical (six) Branch hours. acetaminoph 2019-2020- No [id number] 650mg Take 2 Univers en 325 mg 6-03 06-04 tablets by ity of tablet 00:00: 04:59 mouth [place] 00 :00 every 6 Medical (six) Branch hours. acetaminoph 2019-2020- No [id number] 650mg Take 2 Univers en 325 mg 6-03 06-04 tablets by ity of tablet 00:00: 04:59 mouth [place] 00 :00 every 6 Medical (six) Branch hours. acetaminoph 2020- No [id number] 650mg Take 2 Univers en 325 mg 6-03 06-04 tablets by ity of tablet 00:00: 04:59 mouth [place] 00 :00 every 6 Medical (six) Branch hours. ondansetron 2019-0 2020- No 4mg 4 mg, Slow Univers (ZOFRAN 10-01 06- IV Push, ity of (PF)) 23:00: 22:05 ONCE, 1 [place] injection 4 00 :00 dose, Tue Med ical mg 10/02/19 at Branch 1800, IAM proMETHazin 2020-0 Yes [id number] 25mg Insert 1 Univers e 6- Suppositor ity of (PHENERGAN) 00:00: y into [place] 25 mg 00 rectum Medical suppository every 6 Branc h (six) hours as needed for Nausea and Vomiting (N/V) or N/V unresponsi ve to Ondansetro n. proMETHazin 2020-0 Yes [id number] 25mg Insert 1 Univers e 6- Suppositor ity of (PHENERGAN) 00:00: y into [place] 25 mg 00 rectum Medical suppository every 6 Branc h (six) hours as needed for Nausea and Vomiting (N/V) or N/V unresponsi ve to Ondansetro n. proMETHazin 2020-0 Yes [id number] 25mg Insert 1 Univers e 6- Suppositor ity of (PHENERGAN) 00:00: y into [place] 25 mg 00 rectum Medical suppository every 6 Branc h (six) hours as needed for Nausea and Vomiting (N/V) or N/V unresponsi ve to Ondansetro n. proMETHazin 2020-0 Yes [id number] 25mg Insert 1 Univers e 6- Suppositor ity of (PHENERGAN) 00:00: y into [place] 25 mg 00 rectum Medical suppository every 6 Branc h (six) hours as needed for Nausea and Vomiting (N/V) or N/V unresponsi ve to Ondansetro n. proMETHazin 2020-0 Yes [id number] 25mg Insert 1 Univers e 6-02 Suppositor ity of (PHENERGAN) 00:00: y into [place] 25 mg 00 rectum Medical suppository every 6 Branc h (six) hours as needed for Nausea and Vomiting (N/V) or N/V unresponsi ve to Ondansetro n. proMETHazin 2020-0 Yes [id number] 25mg Insert 1 Univers e 6- Suppositor ity of (PHENERGAN) 00:00: y into [place] 25 mg 00 rectum Medical suppository every 6 Branc h (six) hours as needed for Nausea and Vomiting (N/V) or N/V unresponsi ve to Ondansetro n. proMETHazin 2020-0 Yes [id number] 25mg Insert 1 Univers e 6-02 Suppositor ity of (PHENERGAN) 00:00: y into [place] 25 mg 00 rectum Medical suppository every 6 Branc h (six) hours as needed for Nausea and Vomiting (N/V) or N/V unresponsi ve to Ondansetro n. proMETHazin 2020-0 Yes [id number] 25mg Insert 1 Univers e 6-02 Suppositor ity of (PHENERGAN) 00:00: y into [place] 25 mg 00 rectum Medical suppository every 6 Branc h (six) hours as needed for Nausea and Vomiting (N/V) or N/V unresponsi ve to Ondansetro n. proMETHazin 2020-0 Yes [id number] 25mg Insert 1 Univers e 6-02 Suppositor ity of (PHENERGAN) 00:00: y into [place] 25 mg 00 rectum Medical suppository every 6 Branc h (six) hours as needed for Nausea and Vomiting (N/V) or N/V unresponsi ve to Ondansetro n. ciprofloxac 2020-0 2020- No [id number] 500mg Take 1 Univers in HCl 500 10-01-03 tablet by ity of mg tablet 00:00: 00:00 mouth [place] 00 :00 every 12 Medical (twelve) Branch hours for 5 days. ondansetron 2020-0 Yes [id number] 8mg Take 1 Univers (ZOFRAN 6-01 tablet by ity of ODT) 8 mg 00:00: mouth [place] disintegrat 00 every 8 Medic al ing tablet (eight) Branch hours as needed for Nausea and Vomiting (N/V). ondansetron 2020-0 Yes [id number] 8mg Take 1 Univers (ZOFRAN 6-01 tablet by ity of ODT) 8 mg 00:00: mouth [place] disintegrat 00 every 8 Medic al ing tablet (eight) Branch hours as needed for Nausea and Vomiting (N/V). ondansetron 2020-0 Yes [id number] 8mg Take 1 Univers (ZOFRAN 6-01 tablet by ity of ODT) 8 mg 00:00: mouth [place] disintegrat 00 every 8 Medic al ing tablet (eight) Branch hours as needed for Nausea and Vomiting (N/V). ondansetron 2020-0 Yes [id number] 8mg Take 1 Univers (ZOFRAN 6-01 tablet by ity of ODT) 8 mg 00:00: mouth [place] disintegrat 00 every 8 Medic al ing tablet (eight) Branch hours as needed for Nausea and Vomiting (N/V). ondansetron 2020-0 Yes [id number] 8mg Take 1 Univers (ZOFRAN 6-01 tablet by ity of ODT) 8 mg 00:00: mouth [place] disintegrat 00 every 8 Medic al ing tablet (eight) Branch hours as needed for Nausea and Vomiting (N/V). ondansetron 2020-0 Yes [id number] 8mg Take 1 Univers (ZOFRAN 6-01 tablet by ity of ODT) 8 mg 00:00: mouth [place] disintegrat 00 every 8 Medic al ing tablet (eight) Branch hours as needed for Nausea and Vomiting (N/V). ondansetron 2020-0 Yes [id number] 8mg Take 1 Univers (ZOFRAN 6-01 tablet by ity of ODT) 8 mg 00:00: mouth [place] disintegrat 00 every 8 Medic al ing tablet (eight) Branch hours as needed for Nausea and Vomiting (N/V). ondansetron 2020-0 Yes [id number] 8mg Take 1 Univers (ZOFRAN 6-01 tablet by ity of ODT) 8 mg 00:00: mouth [place] disintegrat 00 every 8 Medic al ing tablet (eight) Branch hours as needed for Nausea and Vomiting (N/V). ondansetron 2020-0 Yes [id number] 8mg Take 1 Univers (ZOFRAN 6-01 tablet by ity of ODT) 8 mg 00:00: mouth [place] disintegrat 00 every 8 Medic al ing tablet (eight) Branch hours as needed for Nausea and Vomiting (N/V). ketorolac 2020-0 2020- No 30mg 30 mg, Unive rs (TORADOL) 07-26 Slow IV ity of injection 07:15: 06:13 Push, [place] 30 mg 00 :00 ONCE, 1 Medical dose, Fri Branch 07/27/19 at 0215, Routine
production team member approving Restricted medication : ZEHRAJAMIR ZAMORANO Silvia HYDROcodone 2020-0 2020- No 1{tbl} 1 tablet, Univers -acetaminop 07-26 Oral, ONCE i ty of hen (NORCO) 07:15: 06:12 NOW, 1 Jose Angel as 10-325 mg 00 :00 dose, Fri Medic al tablet 1 07/27/19 at [facility] h tablet 0215, Routine iohexol 2019- No 120mL 120 mL, Unive rs (OMNIPAQUE 07-26 Intravenou it y of 350 05:30: 05:11 s, ONCE, 1 [place] BULK-150 00 :00 dose, Fri Medica l mL) 07/27/19 at Branch injection 0030, 120 mL Routine FENTanyl PF 2019- No 25ug 25 mcg, Un rickey (SUBLIMAZE 07-26 Slow IV ity o f (PF)) 04:15: 03:28 Push, [place] injection 00 :00 ONCE, 1 Medical 25 mcg dose, Kymberly Branch 07/26/19 at 2315, STAT venlafaxine 2019-0 Yes 150mg Take 150 U nivers XR (EFFEXOR 3-27 mg by ity of XR) 150 mg 02:54: mouth 3 [place] 24 hr 11 (three) Medical capsule times Branch daily. acetaminoph 2020-0 Yes 1{tbl} Take 1 Un rickey en-codeine - tablet by ity of (TYLENOL-CO 02:54: mouth [place] DEINE #3) 11 every 4 Medical 300-30 mg (four) Branch tablet hours as needed. amoxicillin 2019-0 2020- No 500mg Take 500 Univers 500 mg 3-24 03-24 mg by ity of tablet 16:22: 00:00 mouth 3 [place] 19 :00 (three) Medical times Branch daily. ciprofloxac 2020-0 Yes [id number] 250mg Take 1 Univers in HCl 3-24 tablet by ity of (CIPRO) 250 00:00: mouth [place] mg tablet 00 every 12 Medica l (twelve) Branch hours. ciprofloxac 2020-0 Yes [id number] 250mg Take 1 Univers in HCl 3-24 tablet by ity of (CIPRO) 250 00:00: mouth [place] mg tablet 00 every 12 Medica l (twelve) Branch hours. ciprofloxac 2020-0 2020- No [id number] 250mg Take 1 Univers in HCl 3-24 06-03 tablet by ity of (CIPRO) 250 00:00: 00:00 mouth [place] mg tablet 00 :00 every 12 Medica l (twelve) Branch hours. amoxicillin 2020-0 Yes 500mg Take 500 U nivers 500 mg 1-14 mg by ity of tablet 22:33: mouth 3 [place] 23 (three) Medical times Branch daily. acetaminoph 2020-0 Yes 1{tbl} Take 1 Un rickey en-codeine 1-14 tablet by ity of (TYLENOL-CO 22:33: mouth [place] DEINE #3) 23 every 4 Medical 300-30 mg (four) Branch tablet hours as needed. amoxicillin 2020-0 Yes 500mg Take 500 U nivers 500 mg 1-14 mg by ity of tablet 22:33: mouth 3 [place] 23 (three) Medical times Branch daily. acetaminoph [...] 2020- No Take by Un rickey ORAL 1-15 05-14 mouth. ity of 22:33: 00:00 [place] 15 :00 Medical Branch clonazePAM 2020- No [id number] .5mg Take 0.5 Univers (KLONOPIN) 1-14 -14 mg by ity of 0.5 mg 22:32: 00:00 mouth as [place] tablet 53 :00 needed Medical (panic). Branch clonazePAM 2019- No [id number] .5mg Take 0.5 Univers (KLONOPIN) -15 05-14 mg by ity of 0.5 mg 22:32: 00:00 mouth as [place] tablet 53 :00 needed Medical (panic). Branch naproxen 2018-05- No [id number] 500mg Take 1 Univers (NAPROSYN) 0-29 05- 9102 tablet by ity of 500 mg 00:00: 00:00 mouth 2 [place] tablet 00 :00 (two) Medical times Branch daily with meals. naproxen 2018-05- No [id number] 500mg Take 1 Univers (NAPROSYN) 0-05-15 9102 tablet by ity of 500 mg 00:00: 00:00 mouth 2 [place] tablet 00 :00 (two) Medical times Branch daily with meals. methylPREDN 2018-05- No [id number] 84mg Take 21 Univers ISolone 0-25 - 9102 tablets by ity o f (MEDROL, 00:00: 00:00 mouth [place] LORENA,) 4 mg 00 :00 SEE-INSTRU Med ical tablets CTIONS. Branch follow package directions methylPREDN 2018-05- No [id number] 84mg Take 21 Univers ISolone 0-25 - 9102 tablets by ity o f (MEDROL, 00:00: 00:00 mouth [place] LORENA,) 4 mg 00 :00 SEE-INSTRU Med ical tablets CTIONS. Branch follow package directions venlafaxine 2019- Yes 150mg Take 150 U nivers XR (EFFEXOR 9-25 mg by ity of XR) 150 mg 19:49: mouth 3 [place] 24 hr 40 (three) Medical capsule times Branch daily. venlafaxine 2019- Yes 150mg Take 150 U nivers XR (EFFEXOR 9-25 mg by ity of XR) 150 mg 19:49: mouth 3 [place] 24 hr 40 (three) Medical capsule times Branch daily. venlafaxine Yes 150mg Take 150 U nivers XR (EFFEXOR 9-25 mg by ity of XR) 150 mg 19:49: mouth 3 [place] 24 hr 40 (three) Medical capsule times Branch daily. venlafaxine Yes 150mg Take 150 U nivers XR (EFFEXOR 9-25 mg by ity of XR) 150 mg 19:49: mouth 3 [place] 24 hr 40 (three) Medical capsule times Branch daily. HYDROcodone 2020- No [id number] 1{tbl} Take 1 Univers -acetaminop -26 05- tablet by it y of hen (NORCO) 00:00: 00:00 mouth [place] 10-325 mg 00 :00 every 6 Medical tablet (six) Branch hours as needed (pain). etodolac 2020- No [id number] 400mg Take 1 Univers 400 mg 01-24 tablet by ity of tablet 00:00: 00:00 mouth 2 [place] 00 :00 (two) Medical times Branch daily. HYDROcodone 2020- No [id number] 1{tbl} Take 1 Univers -acetaminop -26 05- tablet by it y of hen (NORCO) 00:00: 00:00 mouth [place] 10-325 mg 00 :00 every 6 Medical tablet (six) Branch hours as needed (pain). etodolac 2020- No [id number] 400mg Take 1 Univers 400 mg 01-24 tablet by ity of tablet 00:00: 00:00 mouth 2 [place] 00 :00 (two) Medical times Branch daily. RELPAX 40 2020- No TAKE 1 Unive rs mg tablet 10-25 TABLET BY ity of 00:00: 00:00 MOUTH ONCE [place] 00 :00 NOW FOR 1 Medical DOSE. MAY Branch REPEAT IN 2 HOURS IF NECESSARY RELPAX 40 2020- No TAKE 1 Unive rs mg tablet 10-25 TABLET BY ity of 00:00: 00:00 MOUTH ONCE [place] 00 :00 NOW FOR 1 Medical DOSE. MAY Branch REPEAT IN 2 HOURS IF NECESSARY traZODone 2015-05 Yes 150mg QD Take 150 Met hodi (DESYREL) 1-[address] 150 MG 10:05: mouth [facility] tablet 03 nightly. l venlafaxine 2015-05 Yes 150mg Q.5D Take 150 M ethodi XR 1-[address] (EFFEXOR-XR 10:05: mouth 2 Hos devang ) 150 MG 24 03 (two) l hr capsule times a day. mirtazapine 2015-05 Yes 30mg QD Take 30 mg Methodi (REMERON 1-[address] RONALD-TAB) 30 10:05: nightly. Ho spita MG 03 l disintegrat ing tablet clonAZEPAM 2015-05 Yes 1mg [id number] Take 1 mg Methodi (KlonoPIN) 1-18 [id number] by mouth 3 [address] 1 MG tablet 10:05: 3D (three) Hos devang 03 times a l day as needed for seizures. gabapentin 2015-05 Yes 600mg Q.5D Take 600 Me thodi (NEURONTIN) 1-[address] 600 MG 10:05: mouth 2 Hospita tablet 03 (two) l times a day. eletriptan 2015-05 Yes 40mg Take 40 mg M ethodi (RELPAX) 40 1-[address] MG tablet 10:05: once as Hospi ta 03 needed for l migraine. May repeat in 2 hours if unresolved . Do not exceed 80 mg in 24 hours. Naproxen Naproxen No BID Naproxen 500 MG 500 MG 500 MG Flomax 0.4 Flomax 0.4 No 1{capsu QD Flomax 0.4 MG MG le} MG Naproxen Naproxen No BID Naproxen 500 MG 500 MG 500 MG Flomax 0.4 Flomax 0.4 No 1{capsu QD Flomax 0.4 MG MG le} MG Naproxen Naproxen No BID Naproxen 500 MG 500 MG 500 MG Flomax 0.4 Flomax 0.4 No 1{capsu QD Flomax 0.4 MG MG le} MG Flomax 0.4 Flomax 0.4 No 1{capsu QD Flomax 0.4 MG MG le} MG Naproxen Naproxen No BID Naproxen 500 MG 500 MG 500 MG Flomax 0.4 Flomax 0.4 No 1{capsu QD Flomax 0.4 MG MG le} MG Naproxen Naproxen No BID Naproxen 500 MG 500 MG 500 MG Naproxen Naproxen No BID Naproxen 500 MG 500 MG 500 MG Vital Signs Vital Name Observation Time Observation Value Comments Source height 2022-03-10 10:00:00 65.5 [in_i] Common [facility] weight 2022-03-10 10:00:00 159 [lb_av] Common [facility] temperature 2022-03-10 10:00:00 98.1 [degF] Common [facility] bmi 2022-03-10 10:00:00 26.05 kg/m2 [facility] oximetry 2022-03-10 10:00:00 95 % [facility] respiratory rate 2022-03-10 10:00:00 16 /min Comm on [facility] blood pressure 2022-03-10 10:00:00 99 mm[Hg] Common [facility] - systolic [facility] blood pressure 2022-03-10 10:00:00 53 mm[Hg] Common [facility] - diastolic [facility] height 2022-01-11 13:20:00 68 [in_i] [facility] weight 2022-01-11 13:20:00 163.6 [lb_av] [facility] temperature 2022-01-11 13:20:00 97.6 [degF] Common [facility] bmi 2022-01-11 13:20:00 24.87 kg/m2 Common [facility] oximetry 2022-01-11 13:20:00 96 % Common [facility] respiratory rate 2022-01-11 13:20:00 16 /min Comm on [facility] blood pressure 2022-01-11 13:20:00 128 mm[Hg] Common [facility] - systolic [facility] blood pressure 2022-01-11 13:20:00 72 mm[Hg] Common [facility] - diastolic [facility] height 2021-12-21 14:00:00 68 [in_i] [facility] weight 2021-12-21 14:00:00 174.4 [lb_av] [facility] temperature 2021-12-21 14:00:00 97.6 [degF] [facility] bmi 2021-12-21 14:00:00 26.51 kg/m2 [facility] oximetry 2021-12-21 14:00:00 98 % [facility] respiratory rate 2021-12-21 14:00:00 16 /min Comm on [facility] blood pressure 2021-12-21 14:00:00 133 mm[Hg] [facility] systolic [facility] blood pressure 2021-12-21 14:00:00 63 mm[Hg] [facility] diastolic [facility] Systolic blood 2019-11-22 20:14:00 138 mm[Hg] [facility]iver [facility] Diastolic blood 2019-11-22 20:14:00 89 mm[Hg] Unive rsity of [facility] Heart rate 2019-11-22 20:14:00 79 /min Universi ty [facility] Respiratory rate 2019-11-22 20:14:00 18 /min [facility] height 2019-11-22 20:14:00 175.3 cm [facility] Body weight 2019-11-22 20:14:00 [facility] 2019-11-22 20:14:00 24.47 [facility]2 [facility] Systolic blood 2019-10-03 18:29:00 129 mm[Hg] Univer sity of pressure [facility] Diastolic blood 2019-10-03 18:29:00 91 mm[Hg] Unive rsity of pressure [facility] Heart rate 2019-10-03 18:29:00 82 /min Universi ty [facility] Respiratory rate 2019-10-03 18:29:00 16 /min [facility] Oxygen saturation in 2019-10-03 18:29:00 98 /min University of Arterial blood by [facility] Pulse oximetry Branch Body temperature 2019-10-03 17:42:00 36 Louise [facility] Body height 2019-10-02 21:38:00 175.3 cm [facility] Body weight 2019-10-02 21:38:00 68.493 kg [facility] BMI 2019-10-02 21:38:00 22.30 kg/m2 [facility] Systolic blood 2019-07-27 06:00:00 147 mm[Hg] Univer [facility]ity of pressure [facility] Diastolic blood 2019-07-27 06:00:00 101 mm[Hg] Unive rsity of pressure [facility] Branch Heart rate 2019-07-27 06:00:00 65 /min Universi ty of [facility] Respiratory rate 2019-07-27 06:00:00 24 /min Univ ersity of [facility] Oxygen saturation in 2019-07-27 06:00:00 98 /min University of Arterial blood by [facility] Pulse oximetry Branch Body temperature 2019-07-27 02:51:00 36 Louise [facility] Body height 2019-07-27 02:51:00 172.7 cm [facility] Body weight 2019-07-27 02:51:00 68.04 kg [facility] BMI 2019-07-27 02:51:00 22.81 kg/m2 [facility] Systolic blood 2019-05-15 22:22:00 126 mm[Hg] Univer [facility]ity of pressure [facility] Diastolic blood 2019-05-15 22:22:00 78 mm[Hg] Unive rsity of pressure [facility] Heart rate 2019-05-15 22:22:00 63 /min [facility] Body temperature 2019-05-15 22:22:00 36.06 Louise [facility] [place] [facility] Body height 2019-05-15 22:22:00 172.7 cm [facility] Body weight 2019-05-15 22:22:00 76.658 kg [facility] BMI 2019-05-15 22:22:00 25.70 kg/m2 [facility] Procedures Procedure Date / Time Performing Clinician Source Performed US RETROPERITONEAL 2019-12-11 18:47:09 Dianna Morales [facility] COMPLETE Medical Branch ASSIGNMENT OF BENEFITS 2019-12-11 18:05:01 [facility] DISCLOSURE AND CONSENT, 2019-11-22 05:01:00 Doctor Unassigned, [facility] MEDICAL AND SURGICAL [facility] PROCEDURES BASIC METABOLIC PANEL (NA, 2019-10-03 10:56:00 Tray Foreman [facility] K, CL, CO2, GLUCOSE, BUN, Medica l Branch CREATININE, CA) CT ABDOMEN PELVIS W 2019-10-03 01:30:38 Gianna King [facility] CONTRAST [facility] Branch XR CHEST 1 VW 2019-10-02 22:29:05 Tony [facility] LIPASE 2019-10-02 22:04:00 Tony [facility] MAGNESIUM 2019-10-02 22:04:00 Tony [facility] TROPONIN I 2019-10-02 22:04:00 Tony, [facility] COMP. METABOLIC PANEL 2019-10-02 22:04:00 Tony [facility] ([id number]) Medical [place] CBC WITH DIFFERENTIAL 2019-10-02 22:04:00 Tony [facility] URINALYSIS 2019-10-02 22:04:00 [facility] NOTICE OF PRIVACY 2019-10-02 21:08:54 Doctor Unassigned, [facility] PRACTICES [facility] TROPONIN I 2019-07-27 03:18:00 Jamir Murguia [facility] COMP. METABOLIC PANEL 2019-07-27 03:18:00 Jamir Murguia [facility] ([id number]) Medical [place] CBC WITH DIFFERENTIAL 2019-07-27 03:18:00 Jamir Murguia [facility] PROTHROMBIN TIME / INR 2019-07-27 03:18:00 Jamir Murguia [facility] EKG-12 LEAD 2019-07-27 03:05:07 Jamir Murguia [facility] Medical Branch NOTICE OF PRIVACY 2019-07-27 02:45:41 Doctor Unassigned, [facility] PRACTICES [facility] CONSENT/REFUSAL FOR 2019-07-27 02:45:26 Doctor Unassigned, [facility] DIAGNOSIS AND TREATMENT [facility] [place] Plan of Care Planned Activity Planned Date Details Comments Source Future Scheduled 2023-02-24 Scre[facility] Test 19:56:06 malignant neoplasm of colon (procedure) [code = 800321378] Future Scheduled 2023-02-24 Screening for [facility] Test 19:56:06 malignant neoplasm of colon (procedure) [code = 240819317] Future Scheduled 2023-02-24 Scre[facility] Test 19:56:06 malignant neoplasm of colon (procedure) [code = 824592392] Future Scheduled 2023-02-24 COVID-19 VACCINE (#1) [facility] 19:56:06 [code = COVID-19 VACCINE (#1)] Future Scheduled 2023-02-24 [facility] for [facility] Test 19:56:06 malignant neoplasm of cervix (procedure) [code = 540279222] Future Scheduled 2023-02-24 BREAST CANCER [facility] Test 19:56:06 SCREENING [code = BREAST CANCER SCREENING] Future Scheduled 2023-02-24 [facility] for [facility] Test 19:56:06 malignant neoplasm of colon (procedure) [code = 667105149] Future Scheduled 2023-02-24 [facility] Test 19:56:06 malignant neoplasm of colon (procedure) [code = 326046989] Future Scheduled 2023-02-24 SHINGLES VACCINES (1 [facility] Test 19:56:06 of 2) [code = SHINGLES VACCINES (1 of 2)] Future Scheduled 2023-02-24 65[facility] [facility] Test 19:56:06 VACCINE (1 - PCV) [code = 65+ PNEUMOCOCCAL VACCINE (1 - PCV)] Future Scheduled 2023-02-24 INFLUENZA VACCINE (#1) [facility] Test 19:56:06 [code = INFLUENZA VACCINE (#1)] Encounters Start End Encounter Admission Attending Care Care Encounter Source Date/Time Date/Time Type Type Clinicians Facility Department ID 2022-03-09 Outpatient [place], STLMLC STLMLC [id number] Common 13:03:19 Venus [facility] 2022-03-08 Outpatient [place], STLMLC STLMLC [id number] Common 14:11:02 Venus [facility] 2021-12-21 Outpatient [place], STLMLC STLMLC [id number] Common 13:35:03 Venus [facility] 2022-03-10 2022-03-10 OFFICE STLMLC STLMLC [id number] Co mmon 00:00:00 00:00:00 VISIT EST Spir it PT LEVEL 3 [facility] 2022-01-11 2022-01-11 OFFICE STLMLC STLMLC [id number] Co mmon 00:00:00 00:00:00 VISIT EST Spir it PT LEVEL 3 - [facility] 2022-01-01 2022-01-01 (TEL) STLMLC STLMLC [id number] Co mmon 00:00:00 00:00:00 [facility] 2021-12-29 2021-12-29 (TEL) STLMLC STLMLC [id number] Co mmon 00:00:00 00:00:00 [facility] 2021-12-22 2021-12-22 (TEL) STLMLC STLMLC [id number] Co mmon 00:00:00 00:00:00 [facility] 2021-12-21 2021-12-21 OFFICE STLMLC STLMLC [id number] Co mmon 00:00:00 00:00:00 VISIT NEW Spir it PT LEVEL 2 [facility] 2020-05-20 2020-05-20 Outpatient R DALY [facility] [id number] Univers 13:45:00 13:45:[address] [facility] 2020-03-21 2020-03-21 Telephone Daly [facility] [id number] Univers 00:00:00 00:00:00 [facility] [id number] it Miguel Gant [id number] Jose Angel as Professio [phone] Nv dical nal 044 Branch Office Building One 2020-02-25 2020-02-25 [facility] [id number] Univers 13:00:00 13:00:00 JEFFRY ity of [facility] 2020-02-11 2020-02-11 Outpatient R [facility] [id number] Univers 14:15:00 14:15:[address] [facility] 2019-12-11 2019-12-11 [facility] [id number] Univers 13:06:41 23:59:00 Encounter [facility]3] [id number] ity [facility] [id number] [facility] [phone] [facility] 806 Branch 2019-12-11 2019-12-11 Outpatient R [facility] [id number] Univers 00:00:00 00:00:00 BILAL ity [facility] 2019-12-11 2019-12-11 Orders Doctor BIANCA [id number] Univers 00:00:00 00:00:00 Only Unassigned, LIYAH [id number] ity of [facility] [id number] Jose Angel as [phone] [facility] 009 Branch 2019-11-22 2019-11-22 Office Andrew [facility] [id number] Univers 13:55:45 16:12:18 Visit Room, [facility] Uro Procedure HEALTH 350.1. 13.10 [place] [id number] [place] [address] [phone] [facility] Primary & 204 Branch Specialty Care 2019-11-22 2019-11-22 Outpatient [facility] [id number] Univers 14:30:00 14:30:00 BILAL ity [facility] 2019-11-22 2019-11-22 Orders Doctor VALENZUELA [id number] Univers 00:00:00 00:00:00 Only Unassigned, LIYAH [id number] ity of [facility] [id number] Jose Angel as [phone] [facility] 009 Branch 2019-10-30 2019-10-30 Outpatient [facility] [id number] Univers 10:30:00 10:30:00 BILAL ity [facility] 2019-10-30 2019-10-30 Telephone [facility] [id number] Univers 00:00:00 00:00:00 [facility] HEALTH [id number] it [place] 4.2.7.2.686 [facility] [phone] [facility] Primary & 204 Branch Specialty Care 2019-10-04 2019-10-04 [facility] [id number] Univers 00:00:00 00:00:00 [facility] [id number] it y of [place] [id number] Jose Angel as Professio [phone] [place] [address] Branch [address] 2019-10-02 2019-10-03 Outpatient X [facility] SUU [id number] Univers 16:24:24 14:59:00 BILFL ity [facility] 2019-10-02 2019-10-03 Emergency Tony Rocky Soleanibal [place] 1.2.840. 114 [id number] Univers 16:24:24 14:59:00 Gianna King [id number] ity of [facility] 4.2.7.2.68 [place] [phone] [facility] 091 Branch 2019-10-01 2019-10-01 Outpatient R [facility] [id number] Univers 11:20:00 11:20:00 TEJINDER ity of [facility] 2019-07-26 2019-07-27 Emergency X [facility] [id number] Univers 21:46:01 01:27:00 KIKELI ity [facility] 2019-07-26 2019-07-27 Emergency [facility] [id number] Univers 21:46:01 01:27:00 Jamir Gant [id number] ity of [place] 4.2.7.2.686 [facility] [phone] [facility] sloane 084 [place] 2019-07-24 2019-07-24 Outpatient R [facility] [id number] Univers 11:15:00 11:15:00 [facility] 2019-07-24 2019-07-24 Telemedici [facility] 1.2.840.114 [id number] Univers 08:15:25 08:30:25 ne Visit [place] [id number] i ty of [place] 4.2.7.2.686 Jose Angel as Professio [phone] Nv dical nal [address] [place] [address] Office [facility] 2019-07-23 2019-07-23 Telephone [facility] 1.2.840.114 [id number] Univers 00:00:00 00:00:00 [facility] [id number] it y of [place] [id number] Jose Angel as Professio [phone] [address] Office [facility] 2019-06-26 2019-06-26 Outpatient R [facility] [id number] [facility] 14:15:00 14:15:00 [facility] 2019-05-15 2019-05-15 Office [facility] 1.2.840.114 [id number] Univers 16:19:35 16:43:39 Visit [facility] [id number] it y of [place] 4.2.7.2.686 Jose Angel as Professio [phone] [address] Office [facility] One Results Test Description Test Test Results Result Source Time Comments Comments US RETROPERITONEAL 2019-12- HISTORY: History of [facility] 11 right-sided kidney [facility] 18:55:51 stone and S/P stone Branc h [...] October 2019 did not show any left kidneystone.[facility], Radiant Results Inft User - 12/11/2019 1:56 [...] Interpretation Comme nts NA (test code = 9323522038) 143 mmol/L 135-145 K (test code = 8092455110) 3.5 mmol/L 3.5-5 CL (test code = 0930645450) 114 mmol/L 98-108 H CO2 TOTAL (test code = 3329288842) 20 mmol/L 23-31 L AGAP (test code = 2675638833) 2-16 BUN (test code = 9970905210) 17 mg/dL 7-23 GLUCOSE (test code = 0785740900) 81 mg/dL 70-110 CREATININE (test code = 0.74 mg/dL 0.5-1.04 0024779890) CALCIUM (test code = 7827687122) 8.6 mg/dL 8.6-10.6 eGFR Calculation (Non- mL/min/1.73m2 Vietnamese) (test code = 7271260607) eGFR Calculation ( mL/min/1.73m2 Vietnamese) (test code = 3679624374) ISI (test code = ISI) Association of [...] tests). Lab Interpretation (test code = Abnormal 03339-7) [facility] P[facility] W [id number] 02:16:24Impression: 1. ?A 0.4 cm obstructing stone [...] Superiorendplate compression deformity of T12 vertebral body. [facility] [id number] 01:03:00 Test Item Value Reference Range Interpretation Comments TROPONIN I (test <0.012 See_Comment [Automated code = 4312382898) message] The system which generated this result [...] ? Lab Interpretation Normal (test code = 44198-6) [facility]OLIC PANEL (20280)2019-10-03 00:52:00 Test Item Value Reference Range Interpretation Comments NA (test code = 140 mmol/L 135-145 0044800820) K (test code = 3.8 mmol/L 3.5-5 1841918362) CL (test code = 108 mmol/L 98-108 7760357595) CO2 TOTAL (test code = 24 mmol/L 23-31 8488826203) AGAP (test code = 2-16 6059597580) BUN (test code = 21 mg/dL 7-23 4214303089) GLUCOSE (test code = 99 mg/dL 70-110 0513382032) CREATININE (test code = 1.12 mg/dL 0.5-1.04 H 4667620740) TOTAL BILI (test code = 0.9 mg/dL 0.1-1.5 9826924404) CALCIUM (test code = 9.4 mg/dL 8.6-10.6 7635249970) T PROTEIN (test code = 7.4 g/dL 6.3-8.2 2049077728) ALBUMIN (test code = 4.5 g/dL 3.5-5 8562118225) ALK PHOS (test code = 95 U/L 34-122 3413168983) ALTv (test code = 14 U/L 5-35 1742-6) AST(SGOT) (test code = 26 U/L 13-40 0123020996) eGFR Calculation mL/min/1.73m2 (Non-) (test code = 2670672639) eGFR Calculation mL/min/1.73m2 () (test code = 1557414884) ISI (test code = ISI) Association of [...] tests). Lab Interpretation Abnormal (test code = 64332-5) [facility]2020-06-03 00:52:00 Test Item Value Reference Range Interpretation Comments MAGNESIUM (test code = 8618490286) 2.0 mg/dL 1.7-2.4 Lab Interpretation (test code = Normal 58047-6) [facility]2020-06-03 00:51:00 Test Item Value Reference Range Interpretation Comments APPEARANCE (test code = Hazy Clear A 8137114012) COLOR (test code = Lexi Yellow A 1935905264) PH (test code = 4.8-8.0 2293891340) SP GRAVITY (test code = 1.003-1.030 H 1461259115) GLU U QUAL (test code = Normal Normal 9504154198) BLOOD (test code = Negative Negative 3476598193) KETONES (test code = 5 mg/dL Negative A 4857396299) PROTEIN (test code = Negative Negative 2887-8) UROBILIN (test code = 2.0 mg/dL Normal A 4074855833) BILIRUBIN (test code = 2 mg/dL Negative A 8541272168) NITRITE (test code = Negative Negative 1706271085) LEUK SERG (test code = Negative Negative 3836046283) RBC/HPF (test code = <1 See_Comment [Autom ated message] 0957175878) The system [employer] generated this result transmit alysha reference range : 0 - 3 HPF. The refe rence range was not u sed to interpret th is result as normal/abnormal . WBC/HPF (test code = See_Comment [Autom ated message] 7802216318) The system [employer] generated this result transmit alysha reference range : 0 - 5 HPF. The refe rence range was not u sed to interpret th is result as normal/abnormal . BACTERIA (test code = Few Negative A 2034201025) MUCOUS (test code = Moderate Negative LPF A 5581696415) SQ EPITH (test code = HPF 0287024815) Ictotest (test code = Negative 7406545886) Lab Interpretation (test Abnormal code = 10874-0) [facility]2020-06-03 00:51:00 Test Item Value Reference Range Interpretation Comments LIPASE (test code = 3627424406) 58 U/L 0-220 Lab Interpretation (test code = Normal 42458-6) [facility] WITH [id number] 00:27:00 Test Item Value Reference Range Interpretation [...] RDW-SD (test code = 43.1 fL 39-49.9 56882-6) RDW-CV (test code = 12.3 % 12-15.5 788-0) PLT (test code = See_Comment [Automated 777-3) message] The sy stem which generated this result transmitted reference range : 166 - 358 10*3/ ?L. The reference r mima was not used to interpret this result as normal/abnormal . MPV (test code = 10.7 fL 9.5-12.9 29456-8) NRBC/100 WBC (test See_Comment [Automat ed code = 1173346491) message] The system which generated this result transmitted reference range : 0.0 - 10.0 /100 WBCs. The refer ence range was not u sed to interpret th is result as normal/abnormal . NRBC x10^3 (test code <0.01 See_Comment [Auto mated = 6237967725) message] The s ystem which generated this result transmitted reference range : 10*3/?L. The reference range was not used to interpret this result as normal/abnormal . GRAN MAT (NEUT) % 60.7 % (test code = 770-8) IMM GRAN % (test code 0.30 % = 8898823647) LYMPH % (test code = 27.7 % 736-9) MONO % (test code = 10.7 % 5905-5) EOS % (test code = 0.3 % 713-8) BASO % (test code = 0.3 % 706-2) GRAN MAT x10^3(ANC) 5.70 10*3/uL 1.88-7.09 (test code = 6346410172) IMM GRAN x10^3 (test 0.03 10*3/uL 0-0.06 code = 7246610558) LYMPH x10^3 (test code 2.60 10*3/uL 1.32-3.29 = 731-0) MONO x10^3 (test code 1.01 10*3/uL 0.33-0.92 H = 742-7) EOS x10^3 (test code = 0.03 10*3/uL 0.03-0.39 711-2) BASO x10^3 (test code 0.03 10*3/uL 0.01-0.07 = 704-7) Lab Interpretation Abnormal (test code = 82913-1) [facility] CHEST 1 [id number] 23:48:43 No acute cardiopulmonary abnormality. Preliminary Report [...] reviewed this study and agree with theabove report.[facility] WITH DIFFERENTIAL 2019-07-27 04:09:00 Test Item Value Reference Range Interpretation Comments WBC (test code = See_Comment [Automated 3090-2) message] The sy stem which generated this [...] RDW-SD (test code = 45.1 fL 39-49.9 03501-5) RDW-CV (test code = 13.0 % 12-15.5 788-0) PLT (test code = See_Comment [Automated 777-3) message] The sy stem which generated this result transmitted reference range : 166 - 358 10*3/ ?L. The reference r mima was not used to interpret this result as normal/abnormal . MPV (test code = 9.6 fL 9.5-12.9 25312-5) NRBC/100 WBC (test See_Comment [Automat ed code = 5117423530) message] The system which generated this result transmitted reference range : 0.0 - 10.0 /100 WBCs. The refer ence range was not u sed to interpret th is result as normal/abnormal . NRBC x10^3 (test code <0.01 See_Comment [Auto mated = 3220537251) message] The s ystem which generated this result transmitted reference range : 10*3/?L. The reference range was not used to interpret this result as normal/abnormal . GRAN MAT (NEUT) % 33.8 % (test code = 770-8) IMM GRAN % (test code 0.20 % = 2368171310) LYMPH % (test code = 50.5 % 736-9) MONO % (test code = 12.4 % 5905-5) EOS % (test code = 2.5 % 713-8) BASO % (test code = 0.6 % 706-2) GRAN MAT x10^3(ANC) 1.61 10*3/uL 1.88-7.09 L (test code = 4403565263) IMM GRAN x10^3 (test <0.03 0-0.06 code = 7606540538) LYMPH x10^3 (test code 2.41 10*3/uL 1.32-3.29 = 731-0) MONO x10^3 (test code 0.59 10*3/uL 0.33-0.92 = 742-7) EOS x10^3 (test code = 0.12 10*3/uL 0.03-0.39 711-2) BASO x10^3 (test code 0.03 10*3/uL 0.01-0.07 = 704-7) Lab Interpretation Abnormal (test code = 83160-2) [id number] 03:52:00 Test Item Value Reference Range Interpretation Comments TROPONIN I (test 0.001 ng/mL See_Comment [Automated code = 7469427060) message] The system which generated this result [...] ? Lab Interpretation Normal (test code = 35663-5) [facility]. METABOLIC PANEL ([id number])2019-07-27 03:41:00 Test Item Value Reference Range Interpretation Comments NA (test code = 142 mmol/L 135-145 7942444489) K (test code = 4.0 mmol/L 3.5-5 6702435097) CL (test code = 111 mmol/L 98-108 H 0699201027) CO2 TOTAL (test code = 26 mmol/L 23-31 4484653542) AGAP (test code = 2-16 7926605538) BUN (test code = 14 mg/dL 7-23 6476902173) GLUCOSE (test code = 96 mg/dL 70-110 5288194203) CREATININE (test code = 0.96 mg/dL 0.5-1.04 2908746141) TOTAL BILI (test code = 0.1 mg/dL 0.1-1.4 5340190152) CALCIUM (test code = 8.6 mg/dL 8.6-10.6 5262779242) T PROTEIN (test code = 6.3 g/dL 6.3-8.2 1479782463) ALBUMIN (test code = 3.7 g/dL 3.5-5 3408011873) ALK PHOS (test code = 85 U/L 34-122 8371094217) ALTv (test code = 16 U/L 5-35 1742-6) AST(SGOT) (test code = 18 U/L 13-40 2038094121) eGFR Calculation mL/min/1.73m2 (Non-) (test code = 9398568433) eGFR Calculation mL/min/1.73m2 () (test code = 7449774078) ISI (test code = ISI) Association of [...] tests). Lab Interpretation Abnormal (test code = 06988-7) [facility] / [id number] 03:34:00 Test Item Value Reference Range Interpretation Comments PROTIME PATIENT (test See_Comment [Auto mated message] code = 5964-2) The system [employer] generated this result transmitted ref erence range: 12.0 - 1 4.7 Seconds. The re ference range was not u sed to interpret this result as normal/abnor mal. INR (test code = 6301-6) Nor mal INR <1.1; Warfarin Therap eutic range 2.0 to 3. 0 or 2.5 to 3.5, dep ending upon the indica tions. Lab Interpretation (test Normal code = 78213-7) [facility]"
[2023-03-15] MEDS ORDERED: MORPHINE 4 MG/ML SYR ONE ×3 (14:15→15:33)
[2023-03-15] MEDS ORDERED: NA CHLORIDE 0.9% 1,000 ML ONE (14:15)
[2023-03-15 14:17] LABS: Absolute Lymphocytes (CBC) 1.8 K/uL (0.7-4.9); Hematocrit 37.8 % (36.0-45.0); Lymphocytes % 15.6 % (15.3-44.8); MCV 96.4 fL (80-100); Platelets 190 thou/uL (152-406); RBC Red Blood Cell Count 3.92 M/uL (3.86-4.86)
[2023-03-15 14:44] LABS: Albumin 3.5 g/dL (3.4-5.0); Bilirubin Total 0.3 mg/dL (0.2-1.0); Protein, Total 6.9 g/dL (6.4-8.2)
--- NOTE | 2023-03-15 15:56 | RAD REPORT ---
EXAM DESCRIPTION: CT - Abdomen Pelvis W Contrast - 03/15/2023 2:58 pm CLINICAL HISTORY: ABD PAIN COMPARISON: Abdomen Pelvis W Contrast dated 04/12/2021 TECHNIQUE: Thin cut axial CT imaging of the abdomen and pelvis was performed following intravenous a dministration of 100 mL Isovue 300. Multiplanar reformats were generated and reviewed. All CT scans are performed using dose optimization technique as appropriate and may include automated exposure control or mA/KV adjustment according to patient size. FINDINGS: No suspicious findings in the lung bases. The liver, spleen, adrenal glands, and pancreas show no suspicious findings. Gallbladder and biliary tree are also without suspicious finding. Symmetric renal function is seen with no suspicious renal mass. Severe left hydroureteronephrosis. 7 millimeter distal left ureter obstructing calculus. Nonobstructing calculi up to 3 millimeter in the upper and lower left renal calyces. No dilated bowel loops or bowel wall thickening. Sigmoid diverticulosis. No free air, free fluid or i nflammatory stranding. No hernia, mass or bulky lymphadenopathy. The urinary bladder is without signi ficant finding. No suspicious bony findings. Stable superior endplate T12 compression deformity. IMPRESSION: Severe left hydroureteronephrosis. 7 millimeter left ureter calculus distally. Other nonobstructing left renal calculi up to 3 millimeter. Sigmoid diverticulosis. The findings were communicated to Marquise Pereyra on 03/15/2023 at 15:44 hours.
--- NOTE | 2023-03-15 16:02 | ER ---
Nurse's Notes [facility] Name: Sydni Verma Chappell Age: 67 yrs Sex: Female : 1955 Arrival Date: 03/15/2023 Time: 13:08 Bed 13 Private MD: Diagnosis: Ureteral Stone Presentation: 03/15 13:24 Chief complaint: Patient states: left flank pain onset last night. Pt reports that it cm10 started after she ate. Pt reports nausea, no urinary symptoms. Pt reports history of kidney stones. Coronavirus screen: Vaccine status: Patient reports receiving the 2nd dose of the covid vaccine. Client denies travel out of the [place] in the last 14 days. Ebola Screen: Patient denies travel to an Ebola-affected area in the 21 days before illness onset. No symptoms or risks identified at this time. Initial Sepsis Screen: Does the patient meet any 2 criteria? No. Patient's initial sepsis screen is negative. Does the patient have a suspected source of infection? No. Patient's initial sepsis screen is negative. Risk Assessment: Do you want to hurt yourself or someone else? Patient reports no desire to harm self or others. Onset of symptoms was March 15, 2023. 13:24 Method Of Arrival: Ambulatory cm10 13:24 Acuity: BRODY 3 cm10 Historical: - Allergies: 13:25 Bactrim; cm10 13:25 E.E.S. 400; cm10 13:25 steroid; cm10 - PMHx: 13:25 Fibromyalgia; cm10 - PSHx: 13:25 Total abdominal hysterectomy; cm10 - Immunization history:: Adult Immunizations up to date. - Social history:: Smoking status: Patient denies any tobacco usage or history of. Screenin:30 [facility] ED Fall Risk Assessment (Adult) Score/Fall Risk Level 0 - 2 = Low Risk. Abuse eh3 screen: Denies threats or abuse. Denies injuries from another. Nutritional screening: No deficits noted. Tuberculosis screening: No symptoms or risk factors identified. Assessment: 13:30 General: Appears distressed, uncomfortable, Behavior is cooperative, appropriate for eh3 age, restless. Pain: Complains of pain in left lower quadrant Pain radiates to left flank Pain currently is 9 out of 10 on a pain scale. Quality of pain is described as pressure, radiating, throbbing, Is intermittent. Neuro: Level of Consciousness is awake, alert, obeys commands, Oriented to person, place, time, situation. Cardiovascular: Capillary refill < 3 seconds Patient's skin is warm and dry. Respiratory: Airway is patent Respiratory effort is even, unlabored, Respiratory pattern is regular, symmetrical. GI: Abdomen is round non-distended, Bowel sounds present X 4 quads. Abd is soft X 4 quads Abdomen is tender to palpation in left lower quadrant Guarding noted in left lower quadrant Reports lower abdominal pain, nausea. : No signs and/or symptoms were reported regarding the genitourinary system. Derm: Skin is pink, warm \T\ dry. Musculoskeletal: Circulation, motion, and sensation intact. 14:00 Reassessment: Patient and/or family updated on plan of care and expected duration. Pain eh3 level reassessed. Patient is alert, oriented x 3, equal unlabored respirations, skin warm/dry/pink. 15:00 Reassessment: Patient and/or family updated on plan of care and expected duration. Pain eh3 level reassessed. Patient is alert, oriented x 3, equal unlabored respirations, skin warm/dry/pink. 16:00 Reassessment: Patient and/or family updated on plan of care and expected duration. Pain eh3 level reassessed. Patient is alert, oriented x 3, equal unlabored respirations, skin warm/dry/pink. 17:00 Reassessment: Patient and/or family updated on plan of care and expected duration. Pain eh3 level reassessed. Patient is alert, oriented x 3, equal unlabored respirations, skin warm/dry/pink. Patient states symptoms have improved. 18:00 Reassessment: Patient and/or family updated on plan of care and expected duration. Pain eh3 level reassessed. Patient is alert, oriented x 3, equal unlabored respirations, skin warm/dry/pink. Vital Signs: 13:24 BP 100 / 88; Pulse 67; Resp 18; Temp 98.4; Pulse Ox 99% on R/A; Weight 78.47 kg; Height cm10 5 ft. 8 in. ; 14:00 BP 138 / 58; Pulse 71; Resp 18; Pulse Ox 100% on R/A; eh3 15:00 Pain 8/10; eh3 15:00 BP 112 / 97; Pulse 60; Resp 18; Pulse Ox 100% on R/A; eh3 15:55 Pain 7/10; eh3 16:00 BP 141 / 86; Pulse 65; Resp 16; Pulse Ox 100% on R/A; eh3 17:00 BP 127 / 57; Pulse 71; Resp 16; Pulse Ox 98% on R/A; eh3 17:25 Pain 6/10; eh3 18:00 BP 120 / 62; Pulse 66; Resp 16; Pulse Ox 96% on R/A; eh3 13:24 Body Mass Index 26.30 (78.47 kg, 172.72 cm) cm10 15:00 Pain Scale: Adult eh3 15:55 Pain Scale: Adult eh3 17:25 Pain Scale: Adult eh3 ED Course: 13:12 Patient arrived in ED. mg5 13:12 Marquise Pereyra MD is Attending Physician. ec2 13:19 Denise Farias, MICHEL is Primary Nurse. eh3 13:25 Triage completed. cm10 13:26 Arm band placed on Patient placed in an exam room, on a stretcher. cm10 13:30 Patient has correct armband on for positive identification. Bed in low position. Call eh3 light in reach. Side rails up X2. Provided Education on: use of call strong. Pulse ox on. NIBP on. 14:18 CMP Sent. ds4 14:18 Lipase Sent. ds4 15:00 CT Abd/Pelvis - IV Contrast Only In Process Unspecified. EDMS 16:02 Yogesh Peters is Hospitalizing Provider. ec2 18:25 No provider procedures requiring assistance completed. Patient admitted, IV remains in eh3 place. Administered Medications: 14:15 Drug: NS 0.9% IV 1000 ml IV at 1 bolus Per protocol; 1000 mL bolus Route: IV; Rate: 1 eh3 bolus; Site: left antecubital; 15:40 Follow up: IV Status: Completed infusion; IV Intake: 1000ml 3 14:15 Drug: Ondansetron IVP 4 mg IVP once; over 2 minutes Route: IVP; Site: left antecubital; eh3 15:00 Follow up: Response: (VIS) Vaccine information sheet provided today. Questions and/or eh3 concerns addressed. VIS edition date: Dec 05, 2020.; Nausea is decreased 14:30 Drug: morphine IVP or IV 4 mg IVP once over 4 mins Route: IVP; Infused Over: 4 mins; eh3 Site: left antecubital; 15:00 Follow up: Pain 8/10 Adult; Response: No adverse reaction; Pain is decreased; RASS: eh3 Restless (+1) 15:25 Drug: morphine IVP or IV 8 mg IVP once over 4 mins Route: IVP; Infused Over: 4 mins; eh3 Site: left antecubital; 15:55 Follow up: Pain 7/10 Adult; Response: No adverse reaction; Pain is decreased; RASS: eh3 Restless (+1) 16:15 Drug: HYDROmorphone IVP 1 mg IVP once Route: IVP; Site: left antecubital; eh3 16:45 Follow up: Response: No adverse reaction; Pain is decreased; RASS: Alert and Calm (0) eh3 17:00 Drug: Ketorolac IVP 15 mg IVP once Route: IVP; Site: left antecubital; eh3 17:25 Follow up: Pain 6/10 Adult; Response: No adverse reaction; Pain is decreased eh3 Medication: 18:25 VIS not applicable for this client. eh3 Intake: 15:40 IV: 1000ml; Total: 1000ml. eh3 Outcome: 16:02 Decision to Hospitalize by Provider. ec2 18:25 Admitted to OR accompanied by nurse, via wheelchair, Report called to MICHEL Denny eh3 (OR) and MICHEL Alvarez (2nd floor) 18:25 Condition: stable 18:25 Instructed on the need for admit, 18:28 Patient left the ED. 3 Signatures: Dispatcher [employer] Lewis Swartz ds4 Denise Farias RN RN eh3 Vania Marie RN RN cm10 Saranya Price mg5 Marquise Pereyra MD MD ec2
--- NOTE | 2023-03-15 16:03 | EDPHYS ---
Physician Documentation [facility] Name: Sydni Verma Berwyn Age: 67 yrs Sex: Female : 1955 Arrival Date: 03/15/2023 Time: 13:08 Bed 13 Private MD: ED Physician Marquise Pereyra HPI: 03/15 13:25 This 67 yrs old Female presents to ER via Unassigned with complaints of Side ec2 Pain. 13:25 Patient arrives today due to concern for left-sided abdominal pain. States that the ec2 pain started approximately 13 hours prior to arrival. Patient reports that associated nausea with this. States that she has a history of kidney stones this may feel similar. Patient reports no vomiting however does report an episode of loose stools this morning. Denies any urinary problems.. Historical: - Allergies: 13:25 Bactrim; cm10 13:25 E.E.S. 400; cm10 13:25 steroid; cm10 - PMHx: 13:25 Fibromyalgia; cm10 - PSHx: 13:25 Total abdominal hysterectomy; cm10 - Immunization history:: Adult Immunizations up to date. - Social history:: Smoking status: Patient denies any tobacco usage or history of. ROS: 13:25 Constitutional: as per hpi ec2 Exam: 13:25 Constitutional: GEN: NAD Head: atraumatic Eyes: EOMI Ears: External ears are ec2 normal. CV: regular rate LUNGS: no respiratory distress ABD: soft, tender in the left abdomen, upper and lower, negative flanks bilaterally, not guarding, not rigid SKIN: no evidence of rashes MSK: no evidence of trauma NEURO: moves all extremities equally Vital Signs: 13:24 BP 100 / 88; Pulse 67; Resp 18; Temp 98.4; Pulse Ox 99% on R/A; Weight 78.47 kg; Height cm10 5 ft. 8 in. ; 14:00 BP 138 / 58; Pulse 71; Resp 18; Pulse Ox 100% on R/A; eh3 15:00 Pain 8/10; eh3 15:00 BP 112 / 97; Pulse 60; Resp 18; Pulse Ox 100% on R/A; eh3 15:55 Pain 7/10; eh3 16:00 BP 141 / 86; Pulse 65; Resp 16; Pulse Ox 100% on R/A; eh3 17:00 BP 127 / 57; Pulse 71; Resp 16; Pulse Ox 98% on R/A; eh3 17:25 Pain 6/10; eh3 18:00 BP 120 / 62; Pulse 66; Resp 16; Pulse Ox 96% on R/A; eh3 13:24 Body Mass Index 26.30 (78.47 kg, 172.72 cm) cm10 15:00 Pain Scale: Adult eh3 15:55 Pain Scale: Adult eh3 17:25 Pain Scale: Adult eh3 MDM: 13:15 Patient medically screened. ec2 13:25 ED course: Patient arrives today for evaluation of abdominal pain. Examination ec2 remarkable for abdominal findings as noted above. Will obtain lab work, urine studies, treat the patient's with crystalloid, morphine, antiemetic. Currently considering processes such as diverticulitis, pancreatitis, UTI. Additionally considering nephrolithiasis. . 15:06 ED course: CT scan independently reviewed and interpreted by me, pertinent for ec2 left-sided ureteral stone with hydroureteronephrosis.. 15:35 ED course: CBC is unremarkable, metabolic profile with appropriate electrolytes, some ec2 diminished renal function noted. . 16:01 Data reviewed: vital signs. ED course: Patient with refractory pain. I discussed case ec2 with urology who will see the patient, discussed case with hospitalist who will admit the patient.. 03/15 13:25 Order name: CBC with Diff; Complete Time: 14:28 ec2 03/15 13:25 Order name: CMP; Complete Time: 15:44 ec2 03/15 13:25 Order name: Lipase; Complete Time: 15:44 ec2 03/15 13:26 Order name: UAM ec2 03/15 17:01 Order name: Basic Metabolic Panel EDMS 03/15 17:01 Order name: Basic Metabolic Panel EDMS 03/15 17:01 Order name: Basic Metabolic Panel EDMS 03/15 17:01 Order name: CBC with Automated Diff EDMS 03/15 17:01 Order name: CBC with Automated Diff EDMS 03/15 17:01 Order name: CBC with Automated Diff EDMS 03/15 17:01 Order name: Magnesium EDMS 03/15 17:01 Order name: Magnesium EDMS 03/15 17:01 Order name: Magnesium EDMS 03/15 17:01 Order name: Phosphorus EDMS 03/15 17:01 Order name: Phosphorus EDMS 03/15 17:01 Order name: Phosphorus EDMS 03/15 13:25 Order name: CT Abd/Pelvis - IV Contrast Only; Complete Time: 16:02 ec2 03/15 17:01 Order name: CONS Physician Consult EDSD 03/15 13:25 Order name: IV Saline Lock; Complete Time: 14:18 ec2 03/15 13:25 Order name: Labs collected and sent; Complete Time: 14:18 ec2 Administered Medications: 14:15 Drug: NS 0.9% IV 1000 ml IV at 1 bolus Per protocol; 1000 mL bolus Route: IV; Rate: 1 eh3 bolus; Site: left antecubital; 15:40 Follow up: IV Status: Completed infusion; IV Intake: 1000ml eh3 14:15 Drug: Ondansetron IVP 4 mg IVP once; over 2 minutes Route: IVP; Site: left antecubital; eh3 15:00 Follow up: Response: (VIS) Vaccine information sheet provided today. Questions and/or 3 concerns addressed. VIS edition date: Dec 05, 2020.; Nausea is decreased 14:30 Drug: morphine IVP or IV 4 mg IVP once over 4 mins Route: IVP; Infused Over: 4 mins; eh3 Site: left antecubital; 15:00 Follow up: Pain 8/10 Adult; Response: No adverse reaction; Pain is decreased; RASS: eh3 Restless (+1) 15:25 Drug: morphine IVP or IV 8 mg IVP once over 4 mins Route: IVP; Infused Over: 4 mins; eh3 Site: left antecubital; 15:55 Follow up: Pain 7/10 Adult; Response: No adverse reaction; Pain is decreased; RASS: eh3 Restless (+1) 16:15 Drug: HYDROmorphone IVP 1 mg IVP once Route: IVP; Site: left antecubital; eh3 16:45 Follow up: Response: No adverse reaction; Pain is decreased; RASS: Alert and Calm (0) eh3 17:00 Drug: Ketorolac IVP 15 mg IVP once Route: IVP; Site: left antecubital; eh3 17:25 Follow up: Pain 6/10 Adult; Response: No adverse reaction; Pain is decreased eh3 Disposition Summary: 03/15/23 16:02 Hospitalization Ordered Notes: Hospitalization Status: Inpatient Admission ec2 Provider: Yogesh Peters ec2 Condition: Stable ec2 Problem: new ec2 Symptoms: have improved ec2 Bed/Room Type: Standard ec2 Location: Telemetry/MedSurg (observation)(03/15/23 17:40) ds4 Room Assignment: 218(03/15/23 17:41) ds4 Diagnosis - Ureteral Stone ec2 Forms: - Medication Reconciliation Form ec2 - SBAR form ec2 - Leadership Thank You Letter ec2 Signatures: Dispatcher [employer] EDMS Lewis Savage ds4 Denise Farias RN RN eh3 Vania Marie RN RN cm10 Marquise Pereyra MD MD ec2 Corrections: (The following items were deleted from the chart) 13:27 13:27 Patient medically screened. ec2 ec2 17:40 16:02 Telemetry/MedSurg (Inpatient) ec2 ds4 17:40 16:02 ec2 ds4 17:40 17:40 Intensive Care Unit ds4 ds4 17:40 17:40 5- ds4 ds4 17:41 17:40 ds4 ds4
--- NOTE | 2023-03-15 16:17 | P.HP ---
Certification for Inpatient Patient admitted to: Inpatient With expected LOS: >2 Midnights Practitioner: I am a practitioner with admitting privileges, knowledge of patient current condition, hospital course, and medical plan of care. Services: Services provided to patient in accordance with Admission requirements found in Title 42 Section 412.3 of the Code of Federal Regulations Patient History Date of Service: 03/15/23 Reason for admission: kidney stone History of Present Illness: Sydni Chappell is a 67-year-old female with past medical history of fibromyalgia and kidney stones who presents to the ED complaining of left side pain that feels similar to a kidney stone starting approximately 13 hours prior to arrival. Associated symptoms of nausea and loose stool but no vomiting. Initials vitals BP 100 / 88; Pulse 67; Resp 18; Temp 98.4; Pulse Ox 99% on R/A, Significant labs WBC slightly elevated 11.60, GFR 71 likely due to obstruction, all other labs are unremarkable, UA negative for infection. CT abdomen pelvis shows "severe left hydroureteronephrosis, 7 mm left ureteral calculus distally, with other nonobstructing left renal calculi up to 3 mm". Sydni will be admitted to hospitalist service for further evaluation and treatment of this 7 mm left ureteral calculus, consulted Dr. Estrada. Allergies ciprofloxacin [From Cipro] Allergy (Verified 12/31/21 16:16) Anaphylaxis Home Medications: NK [No Home Meds] 12/31/21 - Past Medical/Surgical History -: Tobacco abuse -: Kidney stones -: Vitamin B12 deficiency Psychosocial/ Personal History: Patient is - Social History Alcohol use: No CD- Drugs: No Caffeine use: No Review of Systems General: Chills Eyes: Unremarkable ENT: Unremarkable Respiratory: Unremarkable Gastrointestinal: Nausea, Vomiting, Diarrhea, Other (LLQ pain) Genitourinary: Unremarkable Musculoskeletal: Unremarkable Neurological: Other (headache) Physical Examination - Physical Exam General: Alert, Oriented x3, Moderate distress HEENT: Atraumatic, Normocephalic, PERRLA Neck: Supple, 2+ carotid pulse no bruit, JVD not distended Respiratory: Clear to auscultation bilaterally, Normal air movement Cardiovascular: No edema, Regular rate/rhythm, Normal S1 S2 Capillary refill: <2 Seconds Gastrointestinal: Normal bowel sounds, Soft and benign, Tenderness (left lower quadrant) Musculoskeletal: No clubbing, No swelling, No contractures Integumentary: No rashes, No breakdown Neurological: Normal speech, Normal strength at 5/5 x4 extr, Normal tone - Studies Laboratory Data (last 24 hrs) 03/15/23 03/15/23 14:01 14:01 WBC 11.60 H Hgb 12.5 Hct 37.8 Plt Count 190 Sodium 141 Potassium 4.0 BUN 21 H Creatinine 0.90 Glucose 96 Total Bilirubin 0.3 AST 10 L ALT 18 Alkaline Phosphatase 93 Lipase 22 Assessment and Plan - Plan Assessment and Plan severe left hydroureteronephrosis 2/2 7 mm ureteral calculus Left flank pain CT showing "severe left hydroureteronephrosis, 7 mm left ureteral calculus distally, with other nonobstructing left renal calculi up to 3 mm" Consult to Dr. Estrada with plan for surgery tonight or tomorrow IVF Toradol and morphine PRN Phenergan PRN UA neg Hx fibromyalgia patient reports no medications taken Supportive care DVT ppx: SCD Full code LOS 2-3 days Discharge Plan: Home Plan to discharge in: 48 Hours - Advance Directives Does patient have a Living Will: Yes Does patient have a Durable POA for Healthcare: Yes Time Spent Managing Pts Care (In Minutes): 55
[2023-03-15] MEDS ORDERED: HYDROMORPHONE HCL 1 MG/ML INJ ONE (16:28)
[2023-03-15] MEDS ORDERED: MORPHINE 2 MG/ML SYR IV PRN (16:49)
[2023-03-15] MEDS: NA CHLORIDE 0.9% 1,000 ML IV SCH (17:00)
[2023-03-15] MEDS ORDERED: PROMETHAZINE INJ 25 MG/ML AMP IV PRN (17:43)
[2023-03-15 18:53] LABS: Urine Bacteria None Seen /HPF (<20); Urine Bilirubin NEGATIVE (Negative); Urine Blood Negative (Negative); Urine Clarity Clear (Clear); Urine Color Colorless (Yellow); Urine Crystals Unidentified Few /HPF (None Seen); Urine Glucose NEGATIVE (Negative); Urine Protein NEGATIVE (Negative); Urine RBC <5 /HPF (None Seen); Urine Urobilinogen Normal (Normal)
[2023-03-15 18:54] LABS: Specific Gravity > 1.030 (1.005-1.030)
[2023-03-15] MEDS ORDERED: Ringers Lactate 1,000 ML IV ONE (18:58)
[2023-03-15] MEDS ORDERED: LIDOCAINE 1% MPF 5 ML VIAL ONE (19:03)
[2023-03-15] MEDS ORDERED: propofoL 200 MG/20 ML VIAL IV ONE (19:03)
[2023-03-15] MEDS: CEFAZOLIN SODIUM 2 GM/VIAL ONE ×2 (19:11→19:24)
--- NOTE | 2023-03-15 19:15 | P.CNS ---
Date of Consult: 03/15/23 67-year-old woman with fibromyalgia and prior multiple history of kidney stones who sees an 2nd pressman and saw me once in the past, presents with left lower quadrant pain that was colicky and moderate to severe, 7-8 out of 10 in intensity. She was seen in the emergency department where she was found to have an obstructing ureteral calculus, but they had difficulty controlling her pain after 8 mg of morphine and Toradol. They finally gave her Dilaudid, and as of my evaluation, her pain was resolved completely. She denies any fever but she did have some chills. She also had some nausea vomiting. Past medical history: Fibromyalgia Allergies: Erythromycin -throat swelling; ciprofloxacin -possible hives Social history: Noncontributory Examination: Well-appearing and in no acute distress Alert, awake, oriented x3 No dyspnea or sign of respiratory distress No cervical/supraclavicular adenopathy or thyromegaly Abdomen soft, nontender No CVA tenderness at this time No lower extremity tenderness/Homans' sign Laboratory analyses: WBC 11.6, hemoglobin 12.5, platelets 190, BUN/creatinine 21/0.9 CT abdomen pelvis with IV contrast (my review): Left moderate to severe hydronephrosis with some ureteral tortuosity associated with a 5.3 mm distal left ureteral calculus. No significant left nephrolithiasis, though radiologist review does point out a 3 mm left renal calculus. Questionable right mild pelviectasis and proximal ureterectasis. No right ureteral obstruction. Assessment and recommendation: 67-year-old woman with fibromyalgia, recurrent stone former, now with left lower quadrant pain associated with a 5 to 7 mm distal left ureteral calculus causing moderate to severe hydronephrosis and intractable pain. -The patient has had stents in the past; so I counseled her about having the stent again and given the location of the stone in her pelvis, I explained she would unlikely be a candidate for ESWL and would likely require definitive therapy with ureteroscopy with laser lithotripsy. -She was aware of the potential for stent discomfort. -Risks of the procedure were discussed to include urethral stricture, infection, ureteral injury, inability to place a stent and need for percutaneous nephrostomy tube -Consent was obtained for the procedure today which will be as follows: Cystoscopy with left retrograde pyelography and left ureteral stent placement
--- NOTE | 2023-03-15 19:43 | P.OP ---
Date of Service: 03/15/23 Preoperative diagnosis: Left lower quadrant/left flank pain Left ureterolithiasis Left hydronephrosis Postoperative diagnoses: Same Principal procedures: Cystoscopy Left retrograde pyelography Left 6 x 24 Angolan ureteral stent placement Indication for procedure: 67-year-old woman with fibromyalgia, recurrent stone former, now with left lower quadrant pain associated with a 5 to 7 mm distal left ureteral calculus causing moderate to severe hydronephrosis and intractable pain. Procedure note: The patient was consented in the preoperative holding area before being transferred to the operative suite where mask general anesthesia was induced. She was given Ancef 2 g IV antimicrobial prophylaxis, and pneumoboots were provided for DVT prophylaxis. She was placed in the lithotomy position, padded and secured to the table appropriately, and her genitalia was prepped with Hibiclens before being draped in standard fashion. The case was begun using a 22 Angolan rigid cystoscope to traverse the urethra and into her bladder with ease. The bladder was decompressed of fluid and urine and surveyed. No papillary mucosal lesions, foreign bodies or stones were noted throughout. The ureteral orifices were orthotopic in location, and the left ureteral orifice was cannulated with the tip of a 5 Angolan ureteral access catheter. A retrograde pyelogram was then performed. Left retrograde pyelography: Using a 70: 30 mixture of Omnipaque and saline, contrast was injected via the lumen of the 5 Angolan ureteral access catheter and did fill the distal ureter to a point of radiopaque obstruction likely consistent with a stone in the distal ureter. Contrast just barely emanated passed the stone but did not go into the proximal ureter or into the renal pelvis. The left kidney was still delineated from the prior IV contrast CT, but the pelvic calyceal system was not delineated. As a result, I injected an additional bolus of contrast under continuous fluoroscopic imagery and observed it propagate up the distal into the mid and proximal ureter where there was some ureteral tortuosity noted before entering the renal pelvis and calyces. At this point, I discontinued contrast administration. I then passed a sensor wire via the 5 Angolan ureteral access catheter coiling it within the calyces of the kidney. Over the wire, I passed a 6 Angolan by 24 cm double-J ureteral stent with a coil observed fluoroscopically in the renal pelvis and 1 cystoscopically formed in her bladder. I then decompressed her bladder of fluid and urine, and she was taken out of the lithotomy position. She was then awakened from general anesthesia, transferred to a stretcher, and then transferred to the recovery room in good condition. Complications: None Discharge disposition: She should follow-up in the urology clinic to discuss definitive management of the stone which will require left ureteroscopy with possible laser lithotripsy versus stone basketing and stent exchange, which may be scheduled within the coming weeks. Otherwise, as long as her pain is better controlled, she may be discharged from the hospital expectantly with follow-up.
--- NOTE | 2023-03-15 20:06 | RAD REPORT ---
EXAM DESCRIPTION: RAD - Cystography - 03/15/2023 7:52 pm CLINICAL HISTORY: STENT COMPARISON: None available. FINDINGS: Seven Images were sent to PACS, documenting fluoroscopically guided stent placement. No ra diologist was available for the procedure, nor will any image interpretation he provided. Please refe r to the procedural report for additional details. Fluoroscopy time: 18 seconds. IMPRESSION: Documentation of fluoroscopy utilization as above.
[2023-03-15] MEDS ORDERED: KETOROLAC 30 MG/ML INJ IV PRN (22:00)
[2023-03-15 22:33] VITALS: BMI 26.3
[2023-03-16 02:54] LABS: Absolute Lymphocytes (CBC) 2.1 K/uL (0.7-4.9); Hematocrit 30.9 % (36.0-45.0); Lymphocytes % 26.8 % (15.3-44.8); MCV 93.6 fL (80-100); Platelets 186 thou/uL (152-406)
[2023-03-16 03:13] LABS: Magnesium 2.3 mg/dL (1.6-2.4); Phosphorus 3.6 mg/dL (2.5-4.9); Potassium 3.7 mEq/L (3.5-5.1)
[2023-03-16] MEDS: NA CHLORIDE 0.9% 1,000 ML IV SCH (04:00)
[2023-03-16 04:39] VITALS: BP 122/59; TEMP 97.9
[2023-03-16] MEDS ORDERED: PNEUMOCOCCAL VACCINE 0.5 ML IMVAC ONE (08:00)
[2023-03-16] MEDS ORDERED: ACETAMINOPHEN 500 MG TAB PO ONE (08:47)
--- NOTE | 2023-03-16 09:18 | P.DS ---
Admission Date: 03/15/23 Discharge Date: 03/16/23 Disposition: ROUTINE DISCHARGE Discharge Condition: FAIR Reason for Admission: kidney stone - Problems (1) Ureteral calculus, left Status: Acute Brief History of Present Illness: Sydni Chappell is a 67-year-old female with past medical history of fibromyalgia and kidney stones who presents to the ED complaining of left side pain that feels similar to a kidney stone starting approximately 13 hours prior to arrival. Associated symptoms of nausea and loose stool but no vomiting. Initials vitals BP 100 / 88; Pulse 67; Resp 18; Temp 98.4; Pulse Ox 99% on R/A, Significant labs WBC slightly elevated 11.60, GFR 71 likely due to obstruction, all other labs are unremarkable, UA negative for infection. CT abdomen pelvis shows "severe left hydroureteronephrosis, 7 mm left ureteral calculus distally, with other nonobstructing left renal calculi up to 3 mm". Sydni will be admitted to hospitalist service for further evaluation and treatment of this 7 mm left ureteral calculus, consulted Dr. Estrada. Hospital Course: Sydni Chappell is a pleasant 67 year old femal with a past medical history sign ificant for fibromyalgia and kidney stones who was admitted to the [facility] on 03/15/23 for 7 mm ureteral calculi. Sydni presented to the ED with severe left lower quadrant pain. She reports having a history of kidney stones of which Dr. Estrada has been her urologist. CT abdomen pelvis shows "severe left hydroureteronephrosis, 7 mm left ureteral calculus distally, with other nonobstructing left renal calculi up to [address] Estrada was consulted and he took her to surgery and placed a left ureteral stent. Dr. Estrada has cleared her for discharge. She is tolerating PO diet and urinating well. She reports her pain level is much better. On 03/16/23, Sydni was seen on morning rounds and deemed medically stable for discharge. Sydni was discharged with instructions to schedule follow-up appointments with Dr. Estrada and PCP. No prescriptions provided. The patient and family members were given the opportunity to ask questions and reported no further questions. Furthermore, all questions were answered to the best of my ability. A copy of this discharge summary will be sent to the above providers to facilitate continuity of care. Today, I personally spent 55 minutes with Sydni, of which greater than 50% of the time was spent in patient education, counseling, and coordination of care as described above. Physical Exam General: Alert, Oriented x3, Moderate distress HEENT: Atraumatic, Normocephalic, PERRLA Neck: Supple, 2+ carotid pulse no bruit, JVD not distended Respiratory: Clear to auscultation bilaterally, Normal air movement Cardiovascular: No edema, Regular rate/rhythm, Normal S1 S2 Capillary refill: <2 Seconds Gastrointestinal: Normal bowel sounds, Soft and benign Musculoskeletal: No clubbing, No swelling, No contractures Integumentary: No rashes, No breakdown Neurological: Normal speech, Normal strength at 5/5 x4 extr, Normal tone Vital Signs/Physical Exam: Temp Pulse Resp BP Pulse Ox 97.9 F 72 17 122/59 L 96 03/16/23 04:00 03/16/23 04:00 03/16/23 04:00 03/16/23 04:00 03/16/23 04:00 Laboratory Data at Discharge: WBC 7.80 thou/uL (4.3-10.9) 03/16/23 01:44 Hgb 10.5 g/dL (12.0-15.0) L D 03/16/23 01:44 Hct 30.9 % (36.0-45.0) L 03/16/23 01:44 Plt Count 186 thou/uL (152-406) 03/16/23 01:44 Sodium 143 mEq/L (136-145) 03/16/23 01:44 Potassium 3.7 mEq/L (3.5-5.1) 03/16/23 01:44 BUN 15 mg/dL (7-18) 03/16/23 01:44 Creatinine 0.75 mg/dL (0.55-1.02) 03/16/23 01:44 Glucose 98 mg/dL (74-106) 03/16/23 01:44 Phosphorus 3.6 mg/dL (2.5-4.9) 03/16/23 01:44 Magnesium 2.3 mg/dL (1.6-2.4) 03/16/23 01:44 Total Bilirubin 0.3 mg/dL (0.2-1.0) 03/15/23 14:01 AST 10 U/L (15-37) L 03/15/23 14:01 ALT 18 U/L (13-56) 03/15/23 14:01 Alkaline Phosphatase 93 U/L (45-117) 03/15/23 14:01 Lipase 22 U/L (13-75) 03/15/23 14:01 Physician Discharge Instructions: 1. Follow up with PCP for continued medical management and yearly health visits 2. Follow up with Dr. Estrada in one week for further left ureteral stent management 3. Regular diet 4. no activity restrictions 5. Return to the ED if symptoms worsen 6. no new medications this admission Diet: Regular Activity: Ad enedelia Followup: NONE,NONE [Primary Care Provider] - 1 Week (make appointment) Rui Estrada [ACTIVE - CAN ADMIT] - Time spent managing pt's care (in minutes): 55
[2023-03-16 09:19] VITALS: O2SAT 99
== END 2023-03-16 09:15 | disposition home or self-care (01) ==
LOC: ER 13:08 → ERHOLD 17:01 → 2ND 17:45
PROVIDERS: ADMIT Internal Medicine; ATTEND Internal Medicine
PROC: 0T778DZ Dilation of Left Ureter with Intraluminal Device, Via Natural or Artificial Opening Endoscopic (ICD-10-PCS; principal; 2023-03-15 18:30)
DX: N13.2 Hydronephrosis with renal and ureteral calculous obstruction (principal); R10.32 Left lower quadrant pain; M79.7 Fibromyalgia; Z88.1 Allergy status to other antibiotic agents
CPT/HCPCS: 96361; 85025 ×2; 81001; 80048; 36415; 83735; 84100; 83690; 80053; 74177; 51600; 74430; 96375; 96374; 99285; 52332; Q9967; J2550; J2704; J2001; J1170; J7120; J7030 ×2; G0378

== ENCOUNTER 2023-06-07 08:04 | Day surgery (SDC) | payer OTHER ==
[2023-05-19 09:07] LABS: Absolute Lymphocytes (CBC) 1.4 K/uL (0.7-4.9); Hematocrit 36.2 % (36.0-45.0); Lymphocytes % 19.2 % (15.3-44.8); MCV 92.1 fL (80-100); MPV 7.6 fL (7.6-11.3); Platelets 277 thou/uL (152-406); Protime INR 0.97; RBC Red Blood Cell Count 3.93 M/uL (3.86-4.86)
--- NOTE | 2023-05-19 10:15 | RAD REPORT ---
EXAM DESCRIPTION: RAD - Chest Pa And Lat (2 Views) - 05/19/2023 8:47 am CLINICAL HISTORY: Pre op pending ureteroscopy, laser, stent exchange. Hypertension COMPARISON: Chest Single View dated 12/11/2021; Chest Single View dated 04/12/2021; Chest Single View dated 12/11/2015; Abdomen 1 View (KUB) dated 10/10/2015 TECHNIQUE: PA and lateral views of the chest were obtained. FINDINGS: The lungs are clear. Heart size is normal and central vasculature is within normal limits. No pleural effusion or pneumothorax seen. No acute bony finding noted. IMPRESSION: No acute cardiopulmonary process.
--- NOTE | 2023-05-23 17:09 | EKG ---
Test Date: 2023-05-19 Test Time: 09:23:00 Toolroom Clerk: BETTYE MEASUREMENT RESULTS: Intervals: Rate: 67 RI: 122 QRSD: 82 QT: 414 QTc: 437 Rogers: P: 64 RI: 122 QRS: 40 T: 48 INTERPRETIVE STATEMENTS: Normal sinus rhythm Normal ECG Compared to ECG 12/11/2021 12:48:26 Sinus bradycardia no longer present Electronically Signed On 05-23-23 16:56:45 HOLISTIC NUTRITIONIST by Dario Emanuel
[2023-06-07] MEDS ORDERED: Ringers Lactate 1,000 ML IV ONE (08:17)
[2023-06-07] MEDS ORDERED: dexAMETHasone 10 MG/ML VIAL ONE (08:57)
[2023-06-07] MEDS ORDERED: LIDOCAINE 1% MPF 5 ML VIAL ONE (08:57)
[2023-06-07] MEDS ORDERED: ONDANSETRON 4 MG/2 ML VIAL ONE (08:57)
[2023-06-07] MEDS ORDERED: KETOROLAC 30 MG/ML INJ ONE (08:57)
[2023-06-07] MEDS ORDERED: FENTANYL CITR 100 MCG/2 ML ONE (08:58)
[2023-06-07] MEDS ORDERED: propofoL 200 MG/20 ML VIAL IV ONE (08:58)
[2023-06-07] MEDS ORDERED: MIDAZOLAM HCL 2 MG/2 ML INJ ONE (08:58)
[2023-06-07] MEDS ORDERED: ROCURONIUM 50 MG/5 ML VIAL IV ONE (08:59)
[2023-06-07] MEDS ORDERED: GENTAMICIN 100 MG/100 ML BAG 0 ML IV ONE (09:39)
[2023-06-07] MEDS: AMPICILLIN SODIUM 2 GM/VIAL VIAL ONE ×2 (10:00→10:03)
[2023-06-07] MEDS ORDERED: Gentamicin Inj 160 MG in NA CHLORIDE 0.9% 100 ML IV ONE (10:00)
[2023-06-07] MEDS ORDERED: SUGAMMADEX SODIUM 200 MG/2 ML VIAL IV ONE (10:22)
[2023-06-07] MEDS ORDERED: PHENAZOPYRIDINE 100MG TAB PO ONE (10:51)
[2023-06-07] MEDS ORDERED: HYDROCODONE/APAP 5/325 MG TAB PO PRN (10:51)
[2023-06-07 11:59] VITALS: BP 125/99; TEMP 97.9; O2SAT 100
--- NOTE | 2023-06-07 13:11 | RAD REPORT ---
EXAM DESCRIPTION: RAD - Urethrocystogrphy Retrograde - 06/07/2023 10:30 am CLINICAL HISTORY: LEFT STENT , LEFT STONE , RIGHT RETROGRADE COMPARISON: None available. FINDINGS: Thirteen Images were sent to PACS, documenting fluoroscopy used during stenting and urethr ogram procedures. No radiologist was available for the procedure, nor will any image interpretation h e provided. Please refer to the procedural report for additional details. Fluoroscopy time: 0.24 Minutes. IMPRESSION: Documentation of fluoroscopy utilization as above.
--- NOTE | 2023-06-07 20:24 | OP ---
Surgeon: NALDO MCFARLAND Preoperative Diagnoses: 1.Left ureterolithiasis. 2.Status post left ureteral stent placement. 3.Right flank pain. 4.History of recurrent nephroureterolithiasis. Postoperative Diagnoses: 1.Left ureterolithiasis. 2.Status post left ureteral stent placement. 3.Right flank pain. 4.History of recurrent nephroureterolithiasis. 5.No right renal/ureteral obstruction seen. Principle Procedures: 1.Cystoscopy with right retrograde pyelography. 2.Left retrograde pyelography. 3.Left ureteroscopy with stone basketing, extraction. 4.Left ureteral stent exchange. Indication For Procedure: Ms. Bayron Chappell presented to the hospital initially with intractable pain a ssociated with a 5-7 mm distal left ureteral calculus causing moderate to severe hydronephrosis. She also has fibromyalgia, which may have complicated her situation. She underwent cystoscopy with left ureteral stent placement on 03/15/2023 and presents today for definitive management of the left uret eral stone. In the interim, she has complained of some right-sided flank pain despite absence of hyd ronephrosis seen on the CT scan performed around the time the stent was placed. Procedure In Detail: The patient was consented in the preoperative holding area before being transfe rred to the operative suite where general anesthesia was induced. She was given ampicillin 2 g and g entamicin 160 mg, approximately 2-3 mg/kg IV antimicrobial prophylaxis, and pneumoboots were provided for DVT prophylaxis. She was placed in the lithotomy position, padded and secured to the table appr opriately, and her genitalia were prepped with Hibiclens before being draped in standard fashion. Th e case was begun using a 22-Spanish rigid cystoscope to traverse the urethra and into the bladder with ease. The bladder was decompressed of fluid and urine, and the right ureteral orifice was identifie d and cannulated using the tip of a 5-Spanish ureteral access catheter. A retrograde pyelogram was th en performed. Right retrograde pyelography: Using a 70:30 mixture of Omnipaque and saline, contrast was injected v ia the lumen of the 5-Spanish ureteral access catheter and did propagate up to distal, into the mid an d proximal ureter without signs of filling defect or ureteronephrosis. It did enter the renal pelvis , which had no evidence of caliectasis or pelviectasis, and no filling defects were noted in either o f the calices or the pelvis. As a result, I removed the 5-Spanish ureteral access catheter and observ ed the right renal unit for decompression over the course of the next 5-10 minutes, and within that t mayra, the kidney almost completely eliminated all of its contrast indicating absence of obstruction. As a result, I turned my attention to the patient's left side where the stent was emanating from the left ureteral orifice. I used an alligator grasper to grasp the coil of the stent and deliver it to the meatus leaving the proximal coil within the mid and proximal ureter. The coil of the stent was s omewhat encrusted as was the internal component of the stent within the coil; so I cut off the coil a nd attempted to pass a Sensor wire up the stent, but it would not pass out the proximal end of the st ent into the upper ureter and kidney. So, I removed the stent and the wire together and navigated th e cystoscope back into the bladder and used a 5-Spanish ureteral access catheter to perform a retrogra de pyelogram. Left retrograde pyelography: Using a 70:30 mixture of Omnipaque and saline, contrast was injected vi a the lumen of the 5-Spanish ureteral access catheter and did propagate up an irregular appearing dist al, into the mid and proximal ureter with no discrete obstructing calculus visible. The contrast did enter the lower pole calyces of the renal pelvis after a significant delay with upward progress of t he contrast indicative of ongoing obstruction. So, I passed the Sensor wire up the ureter and eventu ally into the collecting system navigating the 5-Spanish ureteral access catheter into the renal pelvi s in order to ensure proper seeding of the wire. With the wire in good position, I then removed the 5-Spanish ureteral access catheter and utilized a semi-rigid ureteroscope and sterile saline pressuriz ed irrigation to under direct vision navigate into the ureteral orifice and up the distal, into the m id ureter where I encountered the approximately 6 mm ureteral calculus. Because the ureter had been adequately dilated with the stent, I utilized a ZeroTipped Nitinol 1.9-Spanish basket to grasp the sto ne and deliver it intact from the ureter. There was some evidence of mild ureteral scarring/narrowin g in the distal portion of the ureter, likely where the stone had impacted. So, I elected to place a new 6 x 24 cm double-J stent, which was successfully placed with a coil observed fluoroscopically in the upper pole of the kidney and one cystoscopically formed in her bladder. Her bladder was then de compressed of fluid and urine, and I removed a couple of small blood clots before she was taken out o f the lithotomy position. She was then awakened from general anesthesia, transferred to a stretcher, and then transferred to the recovery room in good condition. Complications: None. Discharge Disposition: Given the evidence of impaction of the stone and some mild ureteral stenosis observed in the left distal ureter, I would like for her to keep the stent for at least 2-3 weeks to try to minimize the risk of future stricture formation event. Also, given the absence of obstruction seen on the right side, she will be informed that her flank pain is likely unrelated to her kidney. Subsequent removal of the stent will need to be done cystoscopically in about 3-4 weeks, and we will perform a Litholink metabolic assessment given her recurrent stone forming potential thereafter. PARVEZ/MARIO Voice ID: [id number] Report ID: [id number]
== END 2023-06-07 11:55 | disposition home or self-care (01) ==
LOC: OR 08:04
PROVIDERS: ATTEND Urology
PROC: 0T778DZ Dilation of Left Ureter with Intraluminal Device, Via Natural or Artificial Opening Endoscopic (ICD-10-PCS; 2023-06-07)
PROC: 0TC78ZZ Extirpation of Matter from Left Ureter, Via Natural or Artificial Opening Endoscopic (ICD-10-PCS; principal; 2023-06-07 09:15)
DX: N20.1 Calculus of ureter (principal); R10.9 Unspecified abdominal pain; F41.9 Anxiety disorder, unspecified; K21.9 Gastro-esophageal reflux disease without esophagitis; Z87.891 Personal history of nicotine dependence
CPT/HCPCS: 93005; 87088; 85025; 87086; 80048; 36415; 85610; 88300; 87077; 87186; 82360; 71046; 74450; 51610; 52352; 52332; J2704; J2001; J1580; J2250; J3010; J1100; J2405; J0290; J7120